=== PATIENT | female | born 1935 | race Caucasian/White ===

== ENCOUNTER 2017-07-05 11:38 | Inpatient (IN) | payer MEDICARE ==
[~2017-07-05] VITALS: Ht 152.4 cm; Wt 53.4 kg
[2017-07-05 11:45] VITALS: BP 103/57; PULSE 88; RESP 16; TEMP 97.6; O2SAT 94
[2017-07-05] MEDS ORDERED: LEVO25TA4 PO (12:07)
[2017-07-05] MEDS ORDERED: MULTTAB25 (12:07)
[2017-07-05] MEDS ORDERED: VITA1000 PO (12:07)
[2017-07-05] MEDS ORDERED: TYLETAB34 PO (12:07)
--- NOTE | 2017-07-05 12:07 | PD ---
HPI Chief Complaint: Pain: Acute or Chronic Time Seen by Provider: 11:55 Travel History International Travel<30 days: No Contact w/Intl Traveler<30days: No Traveled to known affect area: No History of Present Illness HPI 82-year-old female presents via EMS for evaluation after mechanical fall. She reports that yesterday she was walking into her computer room when she tripped and fell, falling onto her back on the carpeted floor. She had the back of her head against the ground, sustaining an occipital laceration, did not lose consciousness. She was unable to stand up and was on the ground throughout the night. She is complaining of occipital head pain associated with laceration, mild, burning, as well as lower back pain, aching, worse with movement. She also has right shoulder pain associated with a contusion. Denies chest pain, shortness of breath, blurred vision, nausea, vomiting, abdominal pain, numbness or tingling or weakness in the extremities. Last tetanus vaccination within 5 years. No other complaints. PFSH Past Medical History ?: Not Social History Alcohol Use: No Tobacco Use: No Allergies-Medications (Allergen,Severity, Reaction): Coded Allergies: Penicillins (Verified Allergy, Intermediate, 07/05/17) Sulfa (Sulfonamide Antibiotics) (Verified Allergy, Intermediate, 07/05/17) Reported Meds & Prescriptions Reported Meds & Active Scripts Active Reported Multi For Her 50+ (Multiple Vitamins W/ Minerals) 0.4 Mg-250 Mcg Tab Vitamin D-1000 (Cholecalciferol) 1,000 Unit Tab 1,000 Units PO DAILY Tylenol-Codeine #3 (Acetaminophen-Codeine) 300-30 mg Tab 1-2 Tab PO Q6H PRN Levothyroxine (Levothyroxine Sodium) 25 Mcg Tab 25 Mcg PO DAILY Review of Systems Except as stated in HPI: all other systems reviewed are Neg Physical Exam Narrative GENERAL: Well-developed well-nourished female in no acute distress SKIN: Warm and dry. 2 cm occipital scalp laceration. Contusion noted to the right shoulder. Old areas of ecchymosis noted on the left hand and arm. Skin tear noted to the anterior left lower leg. HEAD: Skin as noted above. Normocephalic. EYES: Pupils equal and round. No scleral icterus. No injection or drainage. ENT: No nasal bleeding or discharge. Mucous membranes pink and moist. NECK: Trachea midline. No JVD. CARDIOVASCULAR: Regular rate and rhythm. No murmur appreciated. RESPIRATORY: No accessory muscle use. Clear to auscultation. Breath sounds equal bilaterally. GASTROINTESTINAL: Abdomen soft, non-tender, nondistended. Hepatic and splenic margins not palpable. MUSCULOSKELETAL: No obvious deformities. There is some tenderness to palpation of the right shoulder, lower back. The patient maintains full range of motion of the upper and lower extremities. No clubbing. No cyanosis. No edema. NEUROLOGICAL: Awake and alert. No obvious cranial nerve deficits. Motor grossly within normal limits. Normal speech. PSYCHIATRIC: Appropriate mood and affect; insight and judgment normal. Data Data Last Documented VS Vital Signs Date Time Temp Pulse Resp B/P (MAP) Pulse Ox O2 Delivery O2 Flow Rate FiO2 07/05/17 13:26 79 20 97/62 (74) 93 Room Air 07/05/17 11:[address] Cerv Spine W/O Contrast (07/05/17 ) Pelvis, Ap Only (Routine) (07/05/17 ) Sacrum And Coccyx (07/05/17 ) Ct Brain W/O Iv Contrast(Rout) (07/05/17 ) Lidocai-Epi 1%-1:100,000 Inj (Xylocaine- (07/05/17 12:15) Complete Blood Count With Diff (07/05/17 12:03) Basic Metabolic Panel (Bmp) (07/05/17 12:03) Act Partial Throm Time (Ptt) (07/05/17 12:03) Prothrombin Time / Inr (Pt) (07/05/17 12:03) Creatine Kinase (Cpk) (07/05/17 12:03) Acetaminophen (Tylenol) (07/05/17 12:15) Shoulder, Complete (>2vws) (07/05/17 ) Ct Lumb Spine W/O Contrast (07/05/17 ) Spine, Lumbar - Ltd (Ap & Lat) (07/05/17 ) CKMB (07/05/17 11:54) CKMB% (07/05/17 11:54) Ct Pelvis W/O Iv Contrast (07/05/17 ) Acetamin-Codeine 300-30 Mg (Tylenol-Code (07/05/17 13:45) Sodium Chlor 0.9% 1000 Ml Inj (Ns 1000 M (07/05/17 15:03) Urinalysis - C+S If Indicated (07/05/17 15:04) Labs Laboratory Tests Test 07/05/17 11:54 White Blood Count 17.8 TH/MM3 Red Blood Count 4.03 MIL/MM3 Hemoglobin 12.9 GM/DL Hematocrit 38.3 % Mean Corpuscular Volume 95.2 FL Mean Corpuscular Hemoglobin 32.0 PG Mean Corpuscular Hemoglobin Concent 33.6 % Red Cell Distribution Width 14.2 % Platelet Count 111 TH/MM3 Mean Platelet Volume 8.5 FL Neutrophils (%) (Auto) 92.2 % Lymphocytes (%) (Auto) 3.8 % Monocytes (%) (Auto) 3.8 % Eosinophils (%) (Auto) 0.0 % Basophils (%) (Auto) 0.2 % Neutrophils # (Auto) 16.4 TH/MM3 Lymphocytes # (Auto) 0.7 TH/MM3 Monocytes # (Auto) 0.7 TH/MM3 Eosinophils # (Auto) 0.0 TH/MM3 Basophils # (Auto) 0.0 TH/MM3 CBC Comment DIFF FINAL Differential Comment Prothrombin Time 10.8 SEC Prothromb Time International Ratio 1.1 RATIO Activated Partial Thromboplast Time 24.5 SEC Blood Urea Nitrogen 16 MG/DL Creatinine 0.78 MG/DL Random Glucose 160 MG/DL Calcium Level 8.6 MG/DL Sodium Level 133 MEQ/L Potassium Level 3.8 MEQ/L Chloride Level 97 MEQ/L Carbon Dioxide Level 27.6 MEQ/L Anion Gap 8 MEQ/L Estimat Glomerular Filtration Rate 71 ML/MIN Total Creatine Kinase 345 U/L Creatine Kinase MB 6.5 NG/ML Creatine Kinase MB % 1.9 % [facility] Medical Decision Making Medical Screen Exam Complete: Yes Emergency Medical Condition: Yes Medical Record Reviewed: Yes Interpretation(s) CT lumbar spine CONCLUSION: 1. No definite acute compression fracture identified. 2. Severe degenerative changes of the lumbar spine with spinal stenosis most notably at L3/4 and L4/5. The individual levels are dictated in detail above. CT brain no acute abnormalities Differential Diagnosis Laceration, hematoma, contusion, skull fracture, intracranial hemorrhage, lumbar strain, compression fracture, sacral fracture Narrative Course CT imaging the brain, cervical spine a been ordered. X-ray imaging the right shoulder, lumbar spine, pelvis, sacrum have been ordered. X-rays of the sacrum reveals multiple pelvic fractures and radiologist recommends CT imaging of the pelvis. This has been an on. The laceration was repaired with cayden, she verbally consented. The patient requested her prescribed Tylenol with Codeine. Lab work reveals leukocytosis of uncertain etiology. Total CK 345. Random glucose 160. Procedures Procedure Narrative LACERATION LOCATION: Occipital scalp LENGTH: [3 cm NUMBER OF STITCHES/CAYDEN: 8 REPAIR: The area of the laceration was prepped with Betadine and sterilely draped. The laceration was infiltrated with 1% lidocaine with epinephrine. The wound was copiously irrigated and explored without evidence of foreign body , tendon injury or neurovascular injury. The wound was closed using cayden. This was a single layer repair. A sterile dressing was applied. The patient was advised to keep the dressing clean and dry. Patient tolerated the procedure well. Diagnosis Primary Impression: Multiple pelvic fractures Additional Impressions: Occipital scalp laceration Acetabular fracture Admitting Information Admitting Physician Requests: it Harley Zuniga Jul 05, 2017 12:07
[2017-07-05] MEDS ORDERED: LIDOCAINE 1%/EPINEPHrine 1:100,000 SOLN 20 ML VIAL INFIL ONE (12:15)
[2017-07-05] MEDS ORDERED: ACETAMINOPHEN 325 MG TAB PO ONE (12:15)
[2017-07-05 12:46] LABS: AUTOMATED NEUTROPHIL # 16.4 TH/MM3 (1.8-7.7); BASOPHIL % 0.2 % (0.0-2.0); HEMATOCRIT 38.3 % (35.0-46.0); HEMOGLOBIN 12.9 GM/DL (11.6-15.3); LYMPH % 3.8 % (9.0-44.0); LYMPHOCYTE # 0.7 TH/MM3 (1.0-4.8); MEAN CELL VOLUME 95.2 FL (80.0-100.0); MEAN CORPUSCULAR HGB CONC 33.6 % (32.0-36.0); MEAN PLATELET VOLUME 8.5 FL (7.0-11.0); MONO % 3.8 % (0.0-8.0); MONOCYTE # 0.7 TH/MM3 (0-0.9); NEUT % 92.2 % (16.0-70.0); PLATELET COUNT 111 TH/MM3 (150-450); RED BLOOD COUNT 4.03 MIL/MM3 (4.00-5.30); RED CELL DISTRIBUTION WIDTH 14.2 % (11.6-17.2); WHITE BLOOD COUNT 17.8 TH/MM3 (4.0-11.0)
[2017-07-05 12:53] LABS: INTERNATIONAL NORMALIZED RATIO 1.1 RATIO; PROTHROMBIN TIME - PATIENT 10.8 SEC (9.8-11.6)
[2017-07-05 13:04] LABS: BICARBONATE 27.6 MEQ/L (21.0-32.0); CALCIUM 8.6 MG/DL (8.5-10.1); CREATININE 0.78 MG/DL (0.50-1.00)
--- NOTE | 2017-07-05 13:06 | RADRPT ---
EXAM DATE/TIME: 07/05/2017 12:28 [facility] COMPARISON: No previous studies available for comparison. INDICATIONS : Right shoulder aruna post fall, bruising posteriorly. MEDICAL HISTORY : Arthritis. chronic back pain SURGICAL HISTORY : thyroidectomy ENCOUNTER: Initial ACUITY: 1 day PAIN SCORE: 10/10 LOCATION: Right shoulder FINDINGS: Extensive degenerative changes are present with subacromial spurring. Degenerative changes are seen about the glenoid labrum. No fracture. Granulomas right lung. CONCLUSION: Degenerative changes, negative for fracture. Costa Timmons MD FACR on July 05, 2017 at 13:03 Board Certified Radiologist. This report was verified electronically.
--- NOTE | 2017-07-05 13:14 | RADRPT ---
EXAM DATE/TIME: 07/05/2017 12:40 [facility] COMPARISON: No previous studies available for comparison. INDICATIONS : Fall yesterday, pain all over. MEDICAL HISTORY : Arthritis. chronic back pain SURGICAL HISTORY : thyroidectomy ENCOUNTER: Initial ACUITY: 1 day PAIN SCORE: 10/10 LOCATION: Bilateral pelvis FINDINGS: Extensive vascular calcifications are noted. Degenerative changes are present about the lower lumbar spine. There is an nondisplaced fracture through the acetabulum of the left hip. There is no fract ure of the pubic symphysis bilaterally involving both the right and left pubic rami. CONCLUSION: Fractures as described above. CT scan could be used to further evaluate the pelvic fracture. Costa Timmons MD FACR on July 05, 2017 at 13:10 Board Certified Radiologist. This report was verified electronically.
--- NOTE | 2017-07-05 13:20 | RADRPT ---
EXAM DATE/TIME: 07/05/2017 12:31 [facility] COMPARISON: No previous studies available for comparison. INDICATIONS : Back pain post fall. MEDICAL HISTORY : Arthritis. chronic back pain SURGICAL HISTORY : thyroidectomy ENCOUNTER: Initial ACUITY: 1 day PAIN SCORE: 10/10 LOCATION: Bilateral back FINDINGS: I have no prior studies for comparison. Extensive degenerative changes are present in the lumbar spi ne with marked loss of disc space height at L1-2, L2-3, L3-4 L4-5 and L5-S1. Vacuum changes are seen at L2-3 and L3-4. Moderate scoliosis is noted. There is minimal loss of vertebral height at L2 and L3 age indeterminate. Extensive vascular cavitations. CONCLUSION: Extensive degenerative changes lumbar spine. Minimal loss vertebral body height L2 and L3. Age-inde terminate. MRI could be used to exclude an acute compression. Costa Timmons MD FACR on July 05, 2017 at 13:16 Board Certified Radiologist. This report was verified electronically.
--- NOTE | 2017-07-05 13:20 | RADRPT ---
EXAM DATE/TIME: 07/05/2017 12:32 [facility] COMPARISON: PELVIS AP ONLY, July 05, 2017, 12:40. INDICATIONS : Pain lower back post fall. MEDICAL HISTORY : Arthritis. chronic back pain SURGICAL HISTORY : thyroidectomy ENCOUNTER: Initial ACUITY: 1 day PAIN SCORE: 10/10 LOCATION: Bilateral back lower FINDINGS: There is a fracture of the left acetabulum and right superior pubic ramus. There also may be a fractu re of the left inferior pubic ramus. CT scan is recommended for further evaluation if clinically ela cated. Prominent vascular calcification is present. CONCLUSION: 1. Multiple pelvic fractures as above. CT scan is recommended for further evaluation if clinically in dicated. Douglas Aviles MD on July 05, 2017 at 13:16 Board Certified Radiologist. This report was verified electronically.
[2017-07-05 13:26] VITALS: BP 97/62; PULSE 79; RESP 20; O2SAT 93
[2017-07-05] MEDS ORDERED: ACETAMINOPHEN/CODEINE 300 MG/30 MG TAB PO ONE (13:45)
--- NOTE | 2017-07-05 14:07 | RADRPT ---
EXAM DATE/TIME: 07/05/2017 13:38 [facility] COMPARISON: No previous studies available for comparison. INDICATIONS : Fall hitting the back of her head.Laceration. RADIATION DOSE: 56.35 CTDIvol (mGy) MEDICAL HISTORY : SURGICAL HISTORY : Tonsillectomy. Thyroidectomy. ENCOUNTER: Initial ACUITY: 1 day PAIN SCALE: 7/10 LOCATION: occipital TECHNIQUE: Multiple contiguous axial images were obtained of the head. Using automated exposure control and adj ustment of the mA and/or kV according to patient size, radiation dose was kept as low as reasonably a chievable to obtain optimal diagnostic quality images. DICOM format image data is available electro nically for review and comparison. FINDINGS: CEREBRUM: The ventricles are normal for age. No evidence of midline shift, mass lesion, hemorrhage or acute in farction. No extra-axial fluid collections are seen. POSTERIOR FOSSA: The cerebellum and brainstem are intact. The 4th ventricle is midline. The cerebellopontine angle i s unremarkable. EXTRACRANIAL: The visualized portion of the orbits is intact. SKULL: The calvaria is intact. No evidence of skull fracture. CONCLUSION: Negative for acute process. Costa Timmons MD FACR on July 05, 2017 at 14:04 Board Certified Radiologist. This report was verified electronically.
--- NOTE | 2017-07-05 14:32 | RADRPT ---
EXAM DATE/TIME: 07/05/2017 13:42 [facility] COMPARISON: CT BRAIN W/O CONTRAST, July 05, 2017, 13:38. INDICATIONS : Low back pain due to fall. RADIATION DOSE: 25.50 CTDIvol (mGy) MEDICAL HISTORY : None SURGICAL HISTORY : Tonsillectomy. Thyroidectomy. ENCOUNTER: Initial ACUITY: 1 day PAIN SCALE: 7/10 LOCATION: low back TECHNIQUE: Volumetric scanning of the lumbar spine was performed. Multiplanar reconstructions in the sagittal, coronal and oblique axial planes were performed. Using automated exposure control and adjustment of the mA and/or kV according to patient size, radiation dose was kept as low as reasonably achievable t o obtain optimal diagnostic quality images. DICOM format image data is available electronically for review and comparison. FINDINGS: Sagittal and coronal reformats demonstrate severe degenerative changes within the lumbar spine with a convex left rotatory scoliosis. There are desiccated, degenerated disc at all levels. No definite ac [place] compression fracture is seen. Axial imaging: T12/L1: There is a degenerated disc. There is mild diffuse osteophytic ridging and a small broad-based disc b ulge. There is uncovertebral osteophyte encroaching upon the lateral recess and base of the foramina on the left. The foramina on the right is adequate. There is mild facet arthritis bilaterally. L1/L2: There is a degenerated disc. There is minimal disc bulge and diffuse osteophytic ridging. This efface s the ventral thecal sac. Residual thecal space appears narrowed but adequate. There is uncovertebral osteophyte encroaching upon the lateral recess bilaterally. The foramina appear adequate. There is f acet arthritis bilaterally. L2/L3: There is a severely degenerated disc. There is diffuse osteophytic ridging. These efface the ventral thecal sac. There is uncovertebral osteophyte encroaching upon the lateral recess bilaterally. The re sidual thecal space is adequate. The foramina appear adequate. There is moderate facet arthritis bila terally. L3/L4: There is a degenerated disc with broad-based disc bulge and diffuse osteophytic ridging. There is adv anced facet arthritis bilaterally with degenerative facet and ligamentous hypertrophy. These changes combined and result in a severe spinal stenosis and bilateral foraminal narrowing at this level. L4/L5: There is a degenerated disc with broad-based disc bulge and diffuse osteophytic ridging. There is adv anced facet arthritis bilaterally. There is degenerative facet and ligamentous hypertrophy. These micha nges combined and result in a severe spinal stenosis and bilateral foramina bilaterally at this level . L5/S1: There is a degenerated disc with broad-based disc bulge. This effaces the ventral thecal sac. There i s diffuse osteophytic ridging. There is facet arthritis bilaterally. There is osteophytic spur result ing in moderate bilateral encroachment on the lateral recess and base of the foramina. CONCLUSION: 1. No definite acute compression fracture identified. 2. Severe degenerative changes of the lumbar spine with spinal stenosis most notably at L3/4 and L4/5 . The individual levels are dictated in detail above. Channing Timmons MD on July 05, 2017 at 14:25 Board Certified Radiologist. This report was verified electronically.
--- NOTE | 2017-07-05 14:38 | RADRPT ---
EXAM DATE/TIME: 07/05/2017 13:49 [facility] COMPARISON: No previous studies available for comparison. INDICATIONS : Fall. ORAL CONTRAST: No oral contrast ingested. RADIATION DOSE: 8.56 CTDIvol (mGy) MEDICAL HISTORY : None SURGICAL HISTORY : Tonsillectomy. Thyroidectomy. ENCOUNTER: Initial ACUITY: 1 day PAIN SCALE: 7/10 LOCATION: pelvis TECHNIQUE: Volumetric scanning of the pelvis was performed. Using automated exposure control and adjustment of the mA and/or kV according to patient size, radiation dose was kept as low as reasonably achievable t o obtain optimal diagnostic quality images. DICOM format image data is available electronically for review and comparison. FINDINGS: There is an nondisplaced fracture through the medial acetabular wall with fractures of superior pubic rami bilaterally. Alignment is anatomic. SI joints are normal Degenerative changes are present in lumbar spine Femoral head and neck are intact. CONCLUSION: Fracture medial wall of acetabulum as well as bilateral pubic rami fracture. Alignment is near-anatomic.. Csota Timmons MD FACR on July 05, 2017 at 14:32 Board Certified Radiologist. This report was verified electronically.
[2017-07-05] MEDS ORDERED: SODIUM CHLOR 0.9% 1000 ML INJ 1,000 ML IV SCH (15:03)
--- NOTE | 2017-07-05 15:12 | RADRPT ---
EXAM DATE/TIME: 07/05/2017 13:36 [facility] COMPARISON: No previous studies available for comparison. INDICATIONS : Neck pain due to fall. RADIATION DOSE: 40.91 CTDIvol (mGy) MEDICAL HISTORY : None SURGICAL HISTORY : Tonsillectomy. Thyroidectomy. ENCOUNTER: Initial ACUITY: 1 day PAIN SCALE: 7/10 LOCATION: neck TECHNIQUE: Volumetric scanning of the cervical spine was performed. Multiplanar reconstructions in the sagittal, coronal and oblique axial planes were performed. Using automated exposure control and adjustment o f the mA and/or kV according to patient size, radiation dose was kept as low as reasonably achievable to obtain optimal diagnostic quality images. DICOM format image data is available electronically f or review and comparison. FINDINGS: The examination demonstrates a convex left rotatory scoliosis. No acute fracture is identified. There are degenerated discs throughout the cervical spine. Note is made of degenerative changes in the atlantodens joint as well. Axial imaging: C2-3: There is central disc bulge. The thecal space and foramina are adequate. There is facet arthritis migel aterally. C3-4: There is a degenerated disc with diffuse osteophytic ridging. There is exuberant osteophyte projectin g off the vertebral endplate into the lateral recess and base of the foramina on the right. The sheyla sheyla on the left is adequate. The residual thecal space is adequate. There is moderate facet arthritis bilaterally. C4-5: There is a degenerated disc with diffuse osteophytic ridging. There is uncovertebral osteophyte proje cting into the lateral recess and base of the foramina on the right. The foramina on the left is adeq uate. There is mild facet arthritis bilaterally. C5-6: There is a degenerated disc with osteophytic ridging. This just effaces the ventral thecal sac. The r esidual thecal space and foramina appear adequate. There is moderate facet arthritis bilaterally. C6-7: There is a degenerated disc with diffuse osteophytic ridging. There is facet arthritis bilaterally. T he thecal space and foramina are adequate C7-T1: There is no significant neural foraminal stenosis or spinal stenosis. Incidental note is made of severe, densely calcified atherosclerotic plaquing in the carotid arteries bilaterally. CONCLUSION: 1. No acute fracture the cervical spine identified. 2. Advanced degenerative changes as above. 3. Advanced atherosclerotic plaquing in the carotid bifurcations. Channing Timmons MD on July 05, 2017 at 15:05 Board Certified Radiologist. This report was verified electronically.
--- NOTE | 2017-07-05 15:32 | HHI.HP ---
[facility] Service Family Medicine Primary Care Physician Neymar Lugo MD Admission Diagnosis pubic rami fracture, acetabular fracture Diagnoses: International Travel<30 Days: No Contact w/Intl Traveler<30days: No Known Affected Area: No History of Present Illness Mrs. East is a 82-year-old white female with past medical history of hypothyroidism presenting to the ED after fall. She states that last night she decided to go to bed early. She went into her computer room and left her phone on the kitchen table in the next room. She states that she tripped over her feet and fell on her back then hit her head. She states that she saw some stars , but did not lose consciousness. No seizure activity. No loss of bowels or bladder. She states that she laid there all night because she could not get to the phone. Her friend found her this morning around 10 AM. This is her first fall. She usually uses a wheeled walker at home. She uses a wheelchair outside the home. She lives alone. She states that she has pain in her lower spine at her tailbone whenever she tries to move her legs. She states that her hips and legs hurt as well. The pain medicine in the ED helped. No chest pain, no shortness of breath, no abdominal pain. (Malou Hall MD R1) Review of Systems Constitutional: DENIES: Fever, Chills, Dizziness Eyes: DENIES: Blurred vision Ears, nose, mouth, throat: DENIES: Tinnitus, Running Nose Respiratory: DENIES: Cough, Shortness of breath Cardiovascular: COMPLAINS OF: Lower Extremity Edema, DENIES: Chest pain Gastrointestinal: COMPLAINS OF: Constipation, DENIES: Abdominal pain, Black stools, Bloody stools Genitourinary: DENIES: Dysuria Hematologic/lymphatic: COMPLAINS OF: Bruising Neurologic: COMPLAINS OF: Headache, Poor Balance, DENIES: Localized weakness ( Malou Hall MD R1) Past Family Social History Past Medical History Hearing loss Vestibular dysfunction Lumbar stenosis in back Hypothyroidism Past Surgical History Thyroidectomy at 18yo Mastoidectomy bilateral at 3yo Reported Medications Lorazepam 0.25mg PRN for anxiety Reported Meds & Active Scripts Active Reported Multi For Her 50+ (Multiple Vitamins W/ Minerals) 0.4 Mg-250 Mcg Tab Vitamin D-1000 (Cholecalciferol) 1,000 Unit Tab 1,000 Units PO DAILY Tylenol-Codeine #3 (Acetaminophen-Codeine) 300-30 mg Tab 1-2 Tab PO Q6H PRN Levothyroxine (Levothyroxine Sodium) 25 Mcg Tab 25 Mcg PO DAILY (Malou Hall MD R1) Allergies: Coded Allergies: Penicillins (Verified Allergy, Intermediate, 07/05/17) Sulfa (Sulfonamide Antibiotics) (Verified Allergy, Intermediate, 07/05/17) Family History Mother and father , no FHx of bone disease Social History Lives alone in a condo 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 x64yrs Illicit drugs-none (Malou Hall MD R1) Physical Exam Vital Signs Vital Signs Date Time Temp Pulse Resp B/P (MAP) Pulse Ox O2 Delivery O2 Flow Rate FiO2 07/05/17 13:26 79 20 97/62 (74) 93 Room Air 07/05/17 11:53 85 18 07/05/17 11:45 97.6 88 16 103/57 (72) 94 Physical Exam GENERAL: This is a well-nourished, well-developed elderly white female patient laying in bed, in no apparent distress. SKIN: No rashes or lesions. Cool and dry. Ecchymoses on bilateral forearms and right shoulder. HEAD: Normocephalic. Laceration with cayden on occipital scalp. EYES: Pupils equal round and reactive. Extraocular motions intact. No scleral icterus. No injection or drainage. ENT: Nose without bleeding, purulent drainage or septal hematoma. Throat without erythema, tonsillar hypertrophy or exudate. Uvula midline. Airway patent. NECK: Trachea midline. No JVD or lymphadenopathy. Supple, nontender, no meningeal signs. CARDIOVASCULAR: Regular rate and rhythm without murmurs, gallops, or rubs. RESPIRATORY: Clear to auscultation. Breath sounds equal bilaterally. No wheezes , rales, or rhonchi. GASTROINTESTINAL: Abdomen soft, non-tender, nondistended. No hepato-splenomegaly , or palpable masses. No guarding. MUSCULOSKELETAL: Extremities without clubbing, cyanosis, or edema. No joint tenderness, effusion, or edema noted. 10cmx 8cm soft mass on right shoulder. Tenderness to palpation on bilateral hips. NEUROLOGICAL: Awake and alert. Motor and sensory grossly within normal limits. Normal speech. Laboratory Laboratory Tests Test 07/05/17 11:54 White Blood Count 17.8 Red Blood Count 4.03 Hemoglobin 12.9 Hematocrit 38.3 Mean Corpuscular Volume 95.2 Mean Corpuscular Hemoglobin 32.0 Mean Corpuscular Hemoglobin Concent 33.6 Red Cell Distribution Width 14.2 Platelet Count 111 Mean Platelet Volume 8.5 Neutrophils (%) (Auto) 92.2 Lymphocytes (%) (Auto) 3.8 Monocytes (%) (Auto) 3.8 Eosinophils (%) (Auto) 0.0 Basophils (%) (Auto) 0.2 Neutrophils # (Auto) 16.4 Lymphocytes # (Auto) 0.7 Monocytes # (Auto) 0.7 Eosinophils # (Auto) 0.0 Basophils # (Auto) 0.0 CBC Comment DIFF FINAL Differential Comment Prothrombin Time 10.8 Prothromb Time International Ratio 1.1 Activated Partial Thromboplast Time 24.5 Blood Urea Nitrogen 16 Creatinine 0.78 Random Glucose 160 Calcium Level 8.6 Sodium Level 133 Potassium Level 3.8 Chloride Level 97 Carbon Dioxide Level 27.6 Anion Gap 8 Estimat Glomerular Filtration Rate 71 Total Creatine Kinase 345 Creatine Kinase MB 6.5 Creatine Kinase MB % 1.9 (Malou Hall MD R1) Result Diagram: 07/05/17 1154 07/05/17 1154 Imaging Last Impressions Shoulder X-Ray 07/05/17 0000 Signed Impressions: Service Date/Time: Wednesday, July 05, 2017 12:28 - CONCLUSION: Degenerative changes, negative for fracture. Costa Timmons MD FACR Sacrum and Coccyx X-Ray 07/05/17 0000 Signed Impressions: Service Date/Time: Wednesday, July 05, 2017 12:32 - CONCLUSION: 1. Multiple pelvic fractures as above. CT scan is recommended for further evaluation if clinically indicated. Douglas Aviles MD Pelvis X-Ray 07/05/17 0000 Signed Impressions: Service Date/Time: Wednesday, July 05, 2017 12:40 - CONCLUSION: Fractures as described above. CT scan could be used to further evaluate the pelvic fracture. Costa Timmons MD FACR Pelvis CT 07/05/17 0000 Signed Impressions: Service Date/Time: Wednesday, July 05, 2017 13:49 - CONCLUSION: Fracture medial wall of acetabulum as well as bilateral pubic rami fracture. Alignment is near-anatomic.. Costa Timmons MD FACR Lumbar Spine X-Ray 07/05/17 0000 Signed Impressions: Service Date/Time: Wednesday, July 05, 2017 12:31 - CONCLUSION: Extensive degenerative changes lumbar spine. Minimal loss vertebral body height L2 and L3. Age-indeterminate. MRI could be used to exclude an acute compression. Costa Timmons MD FACR Lumbar Spine CT 07/05/17 0000 Signed Impressions: Service Date/Time: Wednesday, July 05, 2017 13:42 - CONCLUSION: 1. No definite acute compression fracture identified. 2. Severe degenerative changes of the lumbar spine with spinal stenosis most notably at L3/4 and L4/5. The individual levels are dictated in detail above. Channing Timmons MD Head CT 07/05/17 0000 Signed Impressions: Service Date/Time: Wednesday, July 05, 2017 13:38 - CONCLUSION: Negative for acute process. Costa Timmons MD FACR Cervical Spine CT 07/05/17 0000 Signed Impressions: Service Date/Time: Wednesday, July 05, 2017 13:36 - CONCLUSION: 1. No acute fracture the cervical spine identified. 2. Advanced degenerative changes as above. 3. Advanced atherosclerotic plaquing in the carotid bifurcations. Channing Timmons MD (Malou Hall MD R1) Caprini VTE Risk Assessment Caprini VTE Risk Assessment: Mod/High Risk (score >= 2) Caprini Risk Assessment Model Point Value = 1 Point Value = 2 Point Value = 3 Point Value = 5 Age 41-60 Minor surgery BMI > 25 kg/m2 Swollen legs Varicose veins or History of unexplained or recurrent spontaneous Oral contraceptives or hormone replacement Sepsis (< 1 month) Serious lung disease, including pneumonia (< 1 month) Abnormal pulmonary function Acute myocardial infarction Congestive heart failure (< 1 month) History of inflammatory bowel disease Medical patient at bed rest Age 61-74 Arthroscopic surgery Major open surgery (> 45 min) Laparoscopic surgery (> 45 min) Malignancy Confined to bed (> 72 hours) Immobilizing plaster cast Central venous access Age >= 75 History of VTE Family history of VTE Factor V Leiden Prothrombin [id number] Lupus anticoagulant Anticardiolipin antibodies Elevated serum homocysteine Heparin-induced thrombocytopenia Other congenital or acquired thrombophilia Stroke (< 1 month) Elective arthroplasty Hip, pelvis, or leg fracture Acute spinal cord injury (< 1 month) Prophylaxis Regimen Total Risk Factor Score Risk Level Prophylaxis Regimen 0-1 Low Early ambulation 2 Moderate Order ONE of the following: *Sequential Compression Device (SCD) *Heparin 5000 units SQ BID 3-4 Higher Order ONE of the following medications: *Heparin 5000 units SQ TID *Enoxaparin/Lovenox 40 mg SQ daily (WT < 150 kg, CrCl > 30 mL/min) *Enoxaparin/Lovenox 30 mg SQ daily (WT < 150 kg, CrCl > 10-29 mL/min) *Enoxaparin/Lovenox 30 mg SQ BID (WT < 150 kg, CrCl > 30 mL/min) AND/OR *Sequential Compression Device (SCD) 5 or more Highest Order ONE of the following medications: *Heparin 5000 units SQ TID (Preferred with Epidurals) *Enoxaparin/Lovenox 40 mg SQ daily (WT < 150 kg, CrCl > 30 mL/min) *Enoxaparin/Lovenox 30 mg SQ daily (WT < 150 kg, CrCl > 10-29 mL/min) *Enoxaparin/Lovenox 30 mg SQ BID (WT < 150 kg, CrCl > 30 mL/min) AND *Sequential Compression Device (SCD) (Malou Hall MD R1) Assessment and Plan Assessment and Plan Mrs. East is a 82yo female with a PMH of hypothyroidism presenting after a hip fracture. She is being admitted to our inpatient service. Code Status DNR Discussed Condition With Dr. Mehta (Malou Hall MD R1) Attending Attestation Patient seen and examined. Case reviewed and discussed with the resident team. Agree with plan of care as discussed with me and documented in the resident note. pt seen in ED and agree with admission for pain control and evaluation per ortho (Shayla Mehat MD) Problem List: (1) Acetabular fracture ICD Codes: S32.409A - Unspecified fracture of unspecified acetabulum, initial encounter for closed fracture Status: Acute Plan: Multiple imaging studies on 07/05 showing nondisplaced fracture to the acetabulum of the left hip as well as bilateral pubic rami fractures. Alignment is near anatomic. * Consult orthopedics, patient is known to Dr. Ramirez * Patient may not need surgical intervention * Pain management with [place] PRN * Consult PT and OT * Consult case management for possible placement (2) Multiple pelvic fractures ICD Codes: S32.810A - Multiple fractures of pelvis with stable disruption of pelvic ring, initial encounter for closed fracture Status: Acute Plan: See plan above (3) Elevated CPK ICD Codes: R74.8 - Abnormal levels of other serum enzymes Status: Acute Plan: CPK at admission was 345. This maybe due to patient lying on the floor all night. * IVF NS @ 100mls/hr * Continue to monitor (4) Occipital scalp laceration ICD Codes: S01.01XA - Laceration without foreign body of scalp, initial encounter Status: Acute Plan: Head CT upon admission is negative for acute process. * Laceration repaired in ED with cayden (5) Hypothyroidism ICD Codes: E03.9 - Hypothyroidism, unspecified Status: Chronic Plan: * Continue home levothyroxine (6) Tobacco abuse ICD Codes: Z72.0 - Tobacco use Status: Chronic Plan: Patient smokes half pack per day and has no interest in quitting at this time. * Nicotine patch during her stay (7) FEN Status: Acute Plan: Fluids: NS @ 100ml/hr Electrolytes: Hyponatremia noted on admission. monitor and replete as needed Nutrition: Regular diet DVT Prophylaxis: Early ambulation. Bilateral SCDs GI Prophylaxis: None indicated at this time Pain Management: [place] 5-325 for Pain 3-5, 7.5-325 for 6-10 (Malou Hall MD R1) Physician Certification 2 Midnight Certification Type: Admission for Inpatient Services Order for Inpatient Services The services are ordered in accordance with Medicare regulations or non- Medicare payer requirements, as applicable. In the case of services not specified as inpatient-only, they are appropriately provided as inpatient services in accordance with the 2-midnight benchmark. Estimated LOS (days): 2 days is the estimated time the patient will need to remain in the hospital, assuming treatment plan goals are met and no additional complications. Post-Hospital Plan: Not yet determined (Malou Hall MD R1) Problem Qualifiers (1) Acetabular fracture: Qualified Codes: S32.475A - Nondisplaced fracture of medial wall of left acetabulum, initial encounter for closed fracture (2) Multiple pelvic fractures: Qualified Codes: S32.82XA - Multiple fractures of pelvis without disruption of pelvic ring, initial encounter for closed fracture (3) Occipital scalp laceration: Qualified Codes: S01.01XA - Laceration without foreign body of scalp, initial encounter (4) Hypothyroidism: Qualified Codes: E03.9 - Hypothyroidism, unspecified Malou Hall MD R1 Jul 05, 2017 15:32 Shayla Mehta MD Jul 06, 2017 13:40
[2017-07-05 15:38] VITALS: BP 121/87; PULSE 81; RESP 14; O2SAT 97
[2017-07-05] MEDS ORDERED: BISACODYL 10 MG SUPP RECTAL PRN (15:45)
[2017-07-05] MEDS ORDERED: SENNOSIDES 8.6 MG TAB PO PRN (15:45)
[2017-07-05] MEDS ORDERED: LACTULOSE SYRUP 20 GM/30 ML CUP PO PRN (15:45)
[2017-07-05] MEDS ORDERED: SODIUM CHLORIDE 0.9% FLUSH 10 ML FLUSH IV FLUSH PRN (15:45)
[2017-07-05] MEDS ORDERED: MAGNESIUM HYDROXIDE SUSP 30 ML CUP PO PRN (15:45)
[2017-07-05] MEDS ORDERED: NALOXONE HCL 0.4 MG/ML AMP IV PUSH PRN ×2 (15:45→16:45)
[2017-07-05] MEDS ORDERED: ACETAMINOPHEN/HYDROcodone 325 MG/5 MG TAB PO PRN (16:45)
[2017-07-05] MEDS ORDERED: ACETAMINOPHEN/HYDROcodone 325 MG/7.5 MG TAB PO PRN (16:45)
[2017-07-05 19:40] VITALS: O2SAT 97
[2017-07-05 20:40] VITALS: BP 109/60; PULSE 84; RESP 16; TEMP 97; O2SAT 98
[2017-07-05] MEDS: DOCUSATE SODIUM 50 MG/SENNA 8.6 MG TAB PO SCH (21:43)
[2017-07-05] MEDS: SODIUM CHLORIDE 0.9% FLUSH 10 ML FLUSH IV FLUSH SCH (21:44)
[2017-07-05] MEDS: SODIUM CHLOR 0.9% 1000 ML INJ 1,000 ML IV SCH (21:56)
[2017-07-06] VITALS (11 sets, daily range): BP systolic 68–130; BP diastolic 44–70; PULSE 64–133; RESP 15–16; TEMP 96.8–100.6; O2SAT 94–98
[2017-07-06] MEDS: ACETAMINOPHEN 325 MG TAB PO PRN ×3 (00:45→14:40)
[2017-07-06] MEDS: LEVOTHYROXINE SODIUM 25 MCG TAB PO SCH (05:25)
[2017-07-06] MEDS: SODIUM CHLOR 0.9% 1000 ML INJ 1,000 ML IV SCH ×2 (05:25→15:46)
--- NOTE | 2017-07-06 07:13 | PD.ORT.PN ---
Subjective Subjective Remarks Fall at home and found on floor. Was unable to get to phone on table Objective Vitals Vital Signs Date Time Temp Pulse Resp B/P (MAP) Pulse Ox O2 Delivery O2 Flow Rate FiO2 07/06/17 04:25 97.7 89 15 130/70 (90) 96 07/06/17 01:10 100.6 87 15 121/69 (86) 98 07/05/17 20:40 97.0 84 16 109/60 (76) 98 07/05/17 19:40 97 Nasal Cannula 2.00 07/05/17 15:38 81 14 121/87 (98) 97 Nasal Cannula 07/05/17 13:26 79 20 97/62 (74) 93 Room Air 07/05/17 11:53 85 18 07/05/17 11:45 97.6 88 16 103/57 (72) 94 I/O 07/05/17 07/05/17 07/05/17 07/06/17 07/06/17 07/06/17 07:00 15:00 23:00 07:00 15:00 23:00 Intake Total 1120 ml Balance 1120 ml Intake Oral 120 ml IV Total 1000 ml # Voids 1 # Bowel Movements 0 Result Diagram: 07/05/17 1154 07/05/17 1154 Other Results Laboratory Tests Test 07/05/17 11:54 Prothromb Time International Ratio 1.1 RATIO Prothrombin Time 10.8 SEC (9.8-11.6) Imaging Last 72 hours Impressions Shoulder X-Ray 07/05/17 0000 Signed Impressions: Service Date/Time: Wednesday, July 05, 2017 12:28 - CONCLUSION: Degenerative changes, negative for fracture. Costa Timmons MD FACR Sacrum and Coccyx X-Ray 07/05/17 0000 Signed Impressions: Service Date/Time: Wednesday, July 05, 2017 12:32 - CONCLUSION: 1. Multiple pelvic fractures as above. CT scan is recommended for further evaluation if clinically indicated. Douglas Aviles MD Pelvis X-Ray 07/05/17 0000 Signed Impressions: Service Date/Time: Wednesday, July 05, 2017 12:40 - CONCLUSION: Fractures as described above. CT scan could be used to further evaluate the pelvic fracture. Costa Timmons MD FACR Pelvis CT 07/05/17 0000 Signed Impressions: Service Date/Time: Wednesday, July 05, 2017 13:49 - CONCLUSION: Fracture medial wall of acetabulum as well as bilateral pubic rami fracture. Alignment is near-anatomic.. Cosat Timmons MD FACR Lumbar Spine X-Ray 07/05/17 0000 Signed Impressions: Service Date/Time: Wednesday, July 05, 2017 12:31 - CONCLUSION: Extensive degenerative changes lumbar spine. Minimal loss vertebral body height L2 and L3. Age-indeterminate. MRI could be used to exclude an acute compression. Costa Timmons MD FACR Lumbar Spine CT 07/05/17 0000 Signed Impressions: Service Date/Time: Wednesday, July 05, 2017 13:42 - CONCLUSION: 1. No definite acute compression fracture identified. 2. Severe degenerative changes of the lumbar spine with spinal stenosis most notably at L3/4 and L4/5. The individual levels are dictated in detail above. Channing Timmons MD Head CT 07/05/17 0000 Signed Impressions: Service Date/Time: Wednesday, July 05, 2017 13:38 - CONCLUSION: Negative for acute process. Costa Timmons MD FACR Cervical Spine CT 07/05/17 0000 Signed Impressions: Service Date/Time: Wednesday, July 05, 2017 13:36 - CONCLUSION: 1. No acute fracture the cervical spine identified. 2. Advanced degenerative changes as above. 3. Advanced atherosclerotic plaquing in the carotid bifurcations. Channing Timmons MD Objective Remarks Bilateral upper extremities: Full range of motion neurovascularly intact Tenderness to palpation over pubic rami and mild tenderness with range of motion of hips. No pain with knee or ankle range of motion bilaterally. Distally intact sensation bilateral lower extremities. Assessment & Plan Assessment and Plan Right pubic rami fracture and left inferior superior pubic rami fractures Physical therapy weightbearing as tolerated bilateral lower extremities. Due to pain and pain with ambulation rehabilitation options are needed Follow-up x-rays in approximately 2 weeks for evaluation Bruce Meyers Jr. Jul 06, 2017 07:13
[2017-07-06 07:27] LABS: AUTOMATED NEUTROPHIL # 11.1 TH/MM3 (1.8-7.7); BASOPHIL % 0.1 % (0.0-2.0); EOSINOPHIL % 0.1 % (0.0-4.0); HEMATOCRIT 31.6 % (35.0-46.0); HEMOGLOBIN 10.8 GM/DL (11.6-15.3); LYMPH % 8.1 % (9.0-44.0); MEAN CELL VOLUME 94.3 FL (80.0-100.0); MEAN CORPUSCULAR HEMOGLOBIN 32.2 PG (27.0-34.0); MEAN CORPUSCULAR HGB CONC 34.2 % (32.0-36.0); MEAN PLATELET VOLUME 8.5 FL (7.0-11.0); MONO % 6.1 % (0.0-8.0); MONOCYTE # 0.8 TH/MM3 (0-0.9); NEUT % 85.6 % (16.0-70.0); PLATELET COUNT 89 TH/MM3 (150-450); RED BLOOD COUNT 3.35 MIL/MM3 (4.00-5.30); RED CELL DISTRIBUTION WIDTH 14.3 % (11.6-17.2); WHITE BLOOD COUNT 12.9 TH/MM3 (4.0-11.0)
[2017-07-06 07:57] LABS: ALT (GPT) 19 U/L (10-53); AST (GOT) 31 U/L (15-37); BICARBONATE 27.9 MEQ/L (21.0-32.0); BLOOD UREA NITROGEN 23 MG/DL (7-18); CALCIUM 7.8 MG/DL (8.5-10.1); CHLORIDE 99 MEQ/L (98-107); GLOMERULAR FILTRATION RATE 95 ML/MIN (>89); GLUCOSE,RANDOM 112 MG/DL (74-106); SODIUM (NA) 134 MEQ/L (136-145)
[2017-07-06 07:59] LABS: ALKALINE PHOSPHATASE 38 U/L (45-117); TOTAL BILIRUBIN ADULT 0.8 MG/DL (0.2-1.0); TOTAL PROTEIN 5.7 GM/DL (6.4-8.2)
[2017-07-06] MEDS: ENOXAPARIN SODIUM 40 MG/0.4 ML SYRINGE SQ SCH (08:55)
[2017-07-06] MEDS: CHOLECALCIFEROL (VIT D3) 1000 UNIT TAB PO SCH (08:55)
[2017-07-06] MEDS: DOCUSATE SODIUM 50 MG/SENNA 8.6 MG TAB PO SCH ×2 (08:55→20:42)
[2017-07-06] MEDS: SODIUM CHLORIDE 0.9% FLUSH 10 ML FLUSH IV FLUSH SCH ×3 (08:56→20:42)
--- NOTE | 2017-07-06 09:14 | HHI.HP ---
[facility] Service Family Medicine Primary Care Physician Neymar Lugo MD Admission Diagnosis pubic rami fracture, acetabular fracture Diagnoses: (1) Acetabular fracture Diagnosis: Principal (2) Multiple pelvic fractures Diagnosis: Principal (3) Elevated CPK Diagnosis: Principal (4) Occipital scalp laceration Diagnosis: Principal (5) Hypothyroidism Diagnosis: Principal (6) Tobacco abuse (7) FEN International Travel<30 Days: No Contact w/Intl Traveler<30days: No Known Affected Area: No History of Present Illness Mrs. East is a 82-year-old white female with past medical history of hypothyroidism who presented to the ED after fall. She states that she decided to go to bed early. She went into her computer room and left her phone on the kitchen table in the next room. She states that she tripped over her feet and fell on her back then hit her head. She states that she saw some stars, but did not lose consciousness. No seizure activity. No loss of bowels or bladder. She states that she lay there all night because she could not get to the phone. Her friend found her in the morning around 10 AM. This is her first fall. She usually uses a wheeled walker at home. She uses a wheelchair outside the home. She lives alone. She states that she has pain in her lower spine at her tailbone whenever she tries to move her legs. She states that her hips and legs hurt as well. The pain medicine in the ED helped. No chest pain, no shortness of breath, no abdominal pain. She was admitted for pain control and had some visual hallucinations on narcotic medicine. She is not able to move spontaneously in bed nor sit up at this point. Ortho saw her and she is not a surgical candidate. Review of Systems Other Constitutional: DENIES: Fever, Chills, Dizziness Eyes: DENIES: Blurred vision Ears, nose, mouth, throat: DENIES: Tinnitus, Running Nose Respiratory: DENIES: Cough, Shortness of breath Cardiovascular: COMPLAINS OF: Lower Extremity Edema, DENIES: Chest pain Gastrointestinal: COMPLAINS OF: Constipation, DENIES: Abdominal pain, Black stools, Bloody stools Genitourinary: DENIES: Dysuria Hematologic/lymphatic: COMPLAINS OF: Bruising Neurologic: COMPLAINS OF: Headache, Poor Balance, DENIES: Localized weakness Past Family Social History Past Medical History Hearing loss Vestibular dysfunction Lumbar stenosis in back Hypothyroidism Past Surgical History Thyroidectomy at 18yo Mastoidectomy bilateral at 3yo Allergies: Coded Allergies: Penicillins (Verified Allergy, Intermediate, 07/05/17) Sulfa (Sulfonamide Antibiotics) (Verified Allergy, Intermediate, 07/05/17) Family History Mother and father , no FHx of bone disease Social History Lives alone in a condo 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 x64yrs Illicit drugs-none Physical Exam Vital Signs Vital Signs Date Time Temp Pulse Resp B/P (MAP) Pulse Ox O2 Delivery O2 Flow Rate FiO2 07/06/17 04:25 97.7 89 15 130/70 (90) 96 07/06/17 01:10 100.6 87 15 121/69 (86) 98 07/05/17 20:40 97.0 84 16 109/60 (76) 98 07/05/17 19:40 97 Nasal Cannula 2.00 07/05/17 15:38 81 14 121/87 (98) 97 Nasal Cannula 07/05/17 13:26 79 20 97/62 (74) 93 Room Air 07/05/17 11:53 85 18 07/05/17 11:45 97.6 88 16 103/57 (72) 94 Physical Exam GENERAL: This is a well-nourished, well-developed elderly white female patient laying in bed, in no apparent distress when she does not move but with severe pain when she moves. she has some blood on her pillowcase from her occipital wound SKIN: No rashes or lesions. Cool and dry. Ecchymoses on bilateral forearms and right shoulder. HEAD: Normocephalic. Laceration with cayden on occipital scalp. EYES: Pupils equal round and reactive. Extraocular motions intact. No scleral icterus. No injection or drainage. ENT: Nose without bleeding, purulent drainage or septal hematoma. Throat without erythema, tonsillar hypertrophy or exudate. Uvula midline. Airway patent. NECK: Trachea midline. No JVD or lymphadenopathy. Supple, nontender, no meningeal signs. CARDIOVASCULAR: Regular rate and rhythm without murmurs, gallops, or rubs. RESPIRATORY: Clear to auscultation. Breath sounds equal bilaterally. No wheezes , rales, or rhonchi. GASTROINTESTINAL: Abdomen soft, non-tender, nondistended. No hepato-splenomegaly , or palpable masses. No guarding. MUSCULOSKELETAL: Extremities without clubbing, cyanosis, or edema. No joint tenderness, effusion, or edema noted. 10cmx 8cm soft mass on right shoulder. Tenderness to palpation on bilateral hips. NEUROLOGICAL: Awake and alert. Motor and sensory grossly within normal limits. Normal speech. Laboratory Laboratory Tests Test 07/05/17 11:54 07/06/17 06:31 White Blood Count 17.8 12.9 Red Blood Count 4.03 3.35 Hemoglobin 12.9 10.8 Hematocrit 38.3 31.6 Mean Corpuscular Volume 95.2 94.3 Mean Corpuscular Hemoglobin 32.0 32.2 Mean Corpuscular Hemoglobin Concent 33.6 34.2 Red Cell Distribution Width 14.2 14.3 Platelet Count 111 89 Mean Platelet Volume 8.5 8.5 Neutrophils (%) (Auto) 92.2 85.6 Lymphocytes (%) (Auto) 3.8 8.1 Monocytes (%) (Auto) 3.8 6.1 Eosinophils (%) (Auto) 0.0 0.1 Basophils (%) (Auto) 0.2 0.1 Neutrophils # (Auto) 16.4 11.1 Lymphocytes # (Auto) 0.7 1.0 Monocytes # (Auto) 0.7 0.8 Eosinophils # (Auto) 0.0 0.0 Basophils # (Auto) 0.0 0.0 CBC Comment DIFF FINAL AUTO DIFF Differential Comment AUTO DIFF CONFIRMED Prothrombin Time 10.8 Prothromb Time International Ratio 1.1 Activated Partial Thromboplast Time 24.5 Blood Urea Nitrogen 16 23 Creatinine 0.78 0.60 Random Glucose 160 112 Calcium Level 8.6 7.8 Sodium Level 133 134 Potassium Level 3.8 3.8 Chloride Level 97 99 Carbon Dioxide Level 27.6 27.9 Anion Gap 8 7 Estimat Glomerular Filtration Rate 71 95 Total Creatine Kinase 345 216 Creatine Kinase MB 6.5 2.3 Creatine Kinase MB % 1.9 1.1 Platelet Estimate LOW Platelet Morphology Comment NORMAL Total Protein 5.7 Albumin 3.0 Alkaline Phosphatase 38 Aspartate Amino Transf (AST/SGOT) 31 Alanine Aminotransferase (ALT/SGPT) 19 Total Bilirubin 0.8 Result Diagram: 07/06/17 0631 07/06/17 0631 Imaging Last Impressions Shoulder X-Ray 07/05/17 0000 Signed Impressions: Service Date/Time: Wednesday, July 05, 2017 12:28 - CONCLUSION: Degenerative changes, negative for fracture. Costa Timmons MD FACR Sacrum and Coccyx X-Ray 07/05/17 Signed Impressions: Service Date/Time: Wednesday, July 05, 2017 12:32 - CONCLUSION: 1. Multiple pelvic fractures as above. CT scan is recommended for further evaluation if clinically indicated. Douglas Aviles MD Pelvis X-Ray 07/05/17 Signed Impressions: Service Date/Time: Wednesday, July 05, 2017 12:40 - CONCLUSION: Fractures as described above. CT scan could be used to further evaluate the pelvic fracture. Costa Timmons MD FACR Pelvis CT 07/05/17 0000 Signed Impressions: Service Date/Time: Wednesday, July 05, 2017 13:49 - CONCLUSION: Fracture medial wall of acetabulum as well as bilateral pubic rami fracture. Alignment is near-anatomic.. Costa Timmons MD FACR Lumbar Spine X-Ray 07/05/17 Signed Impressions: Service Date/Time: Wednesday, July 05, 2017 12:31 - CONCLUSION: Extensive degenerative changes lumbar spine. Minimal loss vertebral body height L2 and L3. Age-indeterminate. MRI could be used to exclude an acute compression. Costa Timmons MD FACR Lumbar Spine CT 07/05/17 Signed Impressions: Service Date/Time: Wednesday, July 05, 2017 13:42 - CONCLUSION: 1. No definite acute compression fracture identified. 2. Severe degenerative changes of the lumbar spine with spinal stenosis most notably at L3/4 and L4/5. The individual levels are dictated in detail above. Channing Timmons MD Head CT 07/05/17 Signed Impressions: Service Date/Time: Wednesday, July 05, 2017 13:38 - CONCLUSION: Negative for acute process. Costa Timmons MD FACR Cervical Spine CT 07/05/17 0000 Signed Impressions: Service Date/Time: Wednesday, July 05, 2017 13:36 - CONCLUSION: 1. No acute fracture the cervical spine identified. 2. Advanced degenerative changes as above. 3. Advanced atherosclerotic plaquing in the carotid bifurcations. Channing Timmons MD Caprini VTE Risk Assessment Caprini VTE Risk Assessment: Mod/High Risk (score >= 2) Caprini Risk Assessment Model Point Value = 1 Point Value = 2 Point Value = 3 Point Value = 5 Age 41-60 Minor surgery BMI > 25 kg/m2 Swollen legs Varicose veins or History of unexplained or recurrent spontaneous Oral contraceptives or hormone replacement Sepsis (< 1 month) Serious lung disease, including pneumonia (< 1 month) Abnormal pulmonary function Acute myocardial infarction Congestive heart failure (< 1 month) History of inflammatory bowel disease Medical patient at bed rest Age 61-74 Arthroscopic surgery Major open surgery (> 45 min) Laparoscopic surgery (> 45 min) Malignancy Confined to bed (> 72 hours) Immobilizing plaster cast Central venous access Age >= 75 History of VTE Family history of VTE Factor V Leiden Prothrombin [id number] Lupus anticoagulant Anticardiolipin antibodies Elevated serum homocysteine Heparin-induced thrombocytopenia Other congenital or acquired thrombophilia Stroke (< 1 month) Elective arthroplasty Hip, pelvis, or leg fracture Acute spinal cord injury (< 1 month) Prophylaxis Regimen Total Risk Factor Score Risk Level Prophylaxis Regimen 0-1 Low Early ambulation 2 Moderate Order ONE of the following: *Sequential Compression Device (SCD) *Heparin 5000 units SQ BID 3-4 Higher Order ONE of the following medications: *Heparin 5000 units SQ TID *Enoxaparin/Lovenox 40 mg SQ daily (WT < 150 kg, CrCl > 30 mL/min) *Enoxaparin/Lovenox 30 mg SQ daily (WT < 150 kg, CrCl > 10-29 mL/min) *Enoxaparin/Lovenox 30 mg SQ BID (WT < 150 kg, CrCl > 30 mL/min) AND/OR *Sequential Compression Device (SCD) 5 or more Highest Order ONE of the following medications: *Heparin 5000 units SQ TID (Preferred with Epidurals) *Enoxaparin/Lovenox 40 mg SQ daily (WT < 150 kg, CrCl > 30 mL/min) *Enoxaparin/Lovenox 30 mg SQ daily (WT < 150 kg, CrCl > 10-29 mL/min) *Enoxaparin/Lovenox 30 mg SQ BID (WT < 150 kg, CrCl > 30 mL/min) AND *Sequential Compression Device (SCD) Assessment and Plan Assessment and Plan Mrs. East is a 82yo female with a PMH of hypothyroidism presenting after a hip fracture. She is being admitted to our inpatient service. Problem List: (1) Acetabular fracture ICD Codes: S32.409A - Unspecified fracture of unspecified acetabulum, initial encounter for closed fracture Status: Acute Plan: Multiple imaging studies on 07/05 showing nondisplaced fracture to the acetabulum of the left hip as well as bilateral pubic rami fractures. Alignment is near anatomic. * Consult orthopedics, patient is known to Dr. Ramirez * Patient may not need surgical intervention * Pain management with [place] PRN * Consult PT and OT * Consult case management for possible placement (2) Multiple pelvic fractures ICD Codes: S32.810A - Multiple fractures of pelvis with stable disruption of pelvic ring, initial encounter for closed fracture Status: Acute Plan: See plan above (3) Elevated CPK ICD Codes: R74.8 - Abnormal levels of other serum enzymes Status: Acute Plan: CPK at admission was 345. This maybe due to patient lying on the floor all night. * IVF NS @ 100mls/hr * Continue to monitor (4) Occipital scalp laceration ICD Codes: S01.01XA - Laceration without foreign body of scalp, initial encounter Status: Acute Plan: Head CT upon admission is negative for acute process. need to watch for infection as she was on the floor all night * Laceration repaired in ED with cayden (5) Hypothyroidism ICD Codes: E03.9 - Hypothyroidism, unspecified Status: Chronic Plan: * Continue home levothyroxine (6) Tobacco abuse ICD Codes: Z72.0 - Tobacco use Status: Chronic Plan: Patient smokes half pack per day and has no interest in quitting at this time. * Nicotine patch during her stay (7) FEN Status: Acute Plan: Fluids: NS @ 100ml/hr was lying on the floor and had some mild dehydration and mildly elevated CPK Electrolytes: Hyponatremia noted on admission. monitor and replete as needed Nutrition: Regular diet DVT Prophylaxis: Early ambulation. Bilateral SCDs GI Prophylaxis: None indicated at this time Pain Management: [place] 5-325 for Pain 3-5, 7.5-325 for 6-10 Problem Qualifiers (1) Acetabular fracture: Qualified Codes: S32.475A - Nondisplaced fracture of medial wall of left acetabulum, initial encounter for closed fracture (2) Multiple pelvic fractures: Qualified Codes: S32.82XA - Multiple fractures of pelvis without disruption of pelvic ring, initial encounter for closed fracture (3) Occipital scalp laceration: Qualified Codes: S01.01XA - Laceration without foreign body of scalp, initial encounter (4) Hypothyroidism: Qualified Codes: E03.9 - Hypothyroidism, unspecified Shayla Mehta MD Jul 06, 2017 09:14
--- NOTE | 2017-07-06 10:24 | RADRPT ---
EXAM DATE/TIME: 07/06/2017 09:25 [place] COMPARISON: No previous studies available for comparison. INDICATIONS : Leukocytosis. MEDICAL HISTORY : None. SURGICAL HISTORY : None. ENCOUNTER: Initial ACUITY: 2 days PAIN SCORE: 0/10 LOCATION: chest FINDINGS: Degenerative changes and scoliosis of the thoracic spine are noted. No acute focal pulmonary infiltra te or pulmonary vascular congestion is noted. Bibasilar scarring is noted. CONCLUSION: Bibasilar scarring. No acute focal pulmonary infiltrate or pulmonary vascular congestion. Degenerativ e changes and scoliosis of the thoracic spine. Mitch Evans MD on July 06, 2017 at 10:20 Board Certified Radiologist. This report was verified electronically.
[2017-07-06] MEDS: traMADol HCL 50 MG TAB PO PRN ×2 (11:41→18:02)
--- NOTE | 2017-07-06 13:09 | MB ---
cc: DAVID LAGOS DATE OF CONSULTATION: 07/06/2017 REASON FOR CONSULTATION: Bilateral pubic rami fractures. HISTORY OF PRESENT ILLNESS: Paola is an 82-year-old female who had a fall yesterday. She had walked into her computer room but left her phone in her kitchen. She tripped and fell. She did hit her head. She had immediate pelvic area pain. She did not lose consciousness. She denies dizziness, syncope or loss of consciousness. She normally ambulates with a walker. She presented to the emergency room where x-rays revealed bilateral pubic rami fractures. She is currently awake and alert on the orthopedic floor. She states that she is sore all over but has a lot of pain in her pelvis when she moves. PAST MEDICAL HISTORY / ILLNESSES: 1. Lumbar stenosis. 2. Hypothyroidism. 3. Hearing loss. PAST SURGICAL HISTORY: 1. Thyroidectomy. 2. Mastoidectomy. MEDICATIONS: 1. Lorazepam. 2. A multivitamin. 3. Tylenol #3. 4. Levothyroxine. ALLERGIES: 1. PENICILLIN. 2. SULFA. FAMILY HISTORY: Family history is noncontributory. Her parents are . SOCIAL HISTORY: The patient lives alone. She is retired. She has smoked approximately a half a pack a day for sixty-four years. She denies drug use. REVIEW OF SYSTEMS: The patient denies headache, visual changes, neck pain, chest pain, shortness of breath, abdominal pain, nausea or vomiting, recent weight loss, or numbness or tingling of the extremities. She has occasional shortness of breath secondary to chronic smoking. She complains of pelvic pain with movement. PHYSICAL EXAMINATION: GENERAL: The patient is a thin 82-year-old female. She is in no acute distress. VITAL SIGNS: Temperature 100.6, pulse 87, respirations 15, blood pressure 121/69, 02 saturation 98% on two liters nasal cannula. HEAD, EYES, EARS, NOSE, THROAT: The patient is normocephalic. Pupils are equal. NECK: The neck is soft and nontender. Trachea is midline. ABDOMEN: The abdomen is soft, nontender and nondistended. EXTREMITIES: Examination of the right upper extremity reveals minimal pain with shoulder, elbow or wrist motion. She has intact sensation in all fingers. She has good capillary refill in all fingers. Skin is intact. Examination of the left arm reveals no pain with shoulder, elbow or wrist motion. She has intact sensation in all fingers. She has good capillary refill in all fingers. Skin is intact. Examination of the bilateral lower extremities reveals mild pelvic pain with any hip range of motion. She has no tenderness around her knees, tibias or ankles bilaterally. Skin is intact in both feet. Dorsalis pedis pulses are palpable. Examination of her pelvis reveals pain with AP and lateral compression. She has mild tenderness along the pubic rami fractures. IMAGING STUDIES: CT scan of the pelvis was reviewed. CT scan reveals bilateral acetabular fractures. The left pubic rami fracture extends up into the anterior aspect of the acetabulum. The articular surfaces are in anatomic alignment. IMPRESSION: 1. Osteoporosis. 2. Chronic smoking. 3. Hypothyroidism. 4. Bilateral pubic rami fractures. PLAN: The options were discussed with the patient. At this point, I would recommend conservative treatment. The patient may weight-bear as tolerated on bilateral lower extremities. She will need to use a walker for safety. Depending on outpatient progress, she may need to go to a [facility] facility for safety and care. All questions were answered. She will need to follow up with orthopedics in two weeks. NOTE: A mid-level provider in my office, nurse practitioner or PA, may see this patient on a follow-up basis and continue to implement the objective of this plan including: Starting or adjusting medications, injections of muscle, tendon, bursa or joints, cast application, orthotic or brace application, physical therapy, further radiographic studies including x-ray, MRI, CT, ultrasounds or bone scan, vascular studies, neurologic studies, or other specialist consultations, and proceeding with surgical management as appropriate. MD ZANE Rodriguez/BLANCHE /6:38 AM /12:43 PM
[2017-07-06] MEDS ORDERED: AMIODARONE INJ 150 MG in DEXTROSE 5% IN WATER 100ML INJ 100 ML IV ONE ×2 (17:25)
[2017-07-06] MEDS ORDERED: AMIODARONE INJ 150 MG in DEXTROSE 5% IN WATER 100ML INJ 97 ML IV ONE ×2 (17:25)
[2017-07-06] MEDS ORDERED: SODIUM CHLORIDE 0.9% FLUSH 10 ML FLUSH IV FLUSH PRN (17:30)
[2017-07-06] MEDS ORDERED: DIGOXIN 0.5 MG/2 ML VIAL IV PUSH ONE (17:45)
[2017-07-06] MEDS ORDERED: DILTIAZEM HCL 25 MG/5 ML VIAL IV ONE (17:45)
[2017-07-06] MEDS ORDERED: MORPHINE SULFATE 2 MG/ML INJ IM PRN (18:00)
[2017-07-06] MEDS ORDERED: SODIUM CHLORID 0.9% 500 ML INJ 500 ML IV ONE (18:00)
--- NOTE | 2017-07-06 18:36 | HHI.FPPN ---
Addendum to progress note ADDENDUM Reason for addendum: Additonal documentation Additional information S: [facility] Patient was found to be hypotensive with BP ~80/50 and HR ~130; no symptoms reported. Patient was initially treated/evaluated by [facility] nursing staff; EKG obtained and patient found to be in A fib/flutter with rate ~130. Patient evaluated: she does not report chest pain, shortness of breath, abdominal pain, or other symptoms at this time. Patient reports some knowledge of a prior "irregular heartbeat" which was diagnosed in [place] but she is not aware of a diagnosis of atrial fibrillation. Patient states that she had one prior echocardiogram which was done as a "baseline;" she does not know the result of this. No history of known ACS/prior TX. O: VS: O2 sat >95% on 3 L O2, HR 130's-150 on telemetry, BP initially ~80/50; later ~100/70 while getting 500cc NS bolus Gen- NAD CV- irregular rhythm, elevated rate. No obvious LE edema Resp- CTAB; normal rate Abdomen-nontender to palpation Neuro- Grossly normal CN; peripheral function not assessed MSK- not assessed A/P: Atrial fibrillation; rate 130-150 in association with hypotension Impression: Presumed new onset, although vague history of irregular heartbeat previously. Hypotensive but asymptomatic -Will transfer to [facility] with Cardiology consult -Will give 500 NS bolus -Will continue to monitor on tele and check BP ~q10 min -Amiodarone 150mg IV bolus with subsequent drip -Discussed with Critical care and subsequently with Cardiology -Will give Digoxin 0.5mg IV -Will give Diltiazem 10mg IV -Continue Amiodarone -Anticoagulation discussed between Cardiology and patient; will plan to discuss further over next 1-2 days regarding anticoagulation plans after discharge -Will order echo, troponin, TSH for risk stratification Seen with Dr. Nieves Kendrick,Husam Sharma MD, R3 Jul 06, 2017 18:36
[2017-07-06] MEDS: AMIODARONE INJ 450 MG in SODIUM CHLOR 0.9% (EXCEL) INJ 250 ML IV PRN (18:43)
[2017-07-06] MEDS ORDERED: ASPIRIN 325 MG TAB PO SCH (18:45)
--- NOTE | 2017-07-06 19:39 | MB ---
cc: WILLIS TEIXEIRA M.D. DATE OF CONSULTATION: 07/06/2017. HISTORY OF PRESENT ILLNESS: Paola is a very pleasant 82-year-old lady with history of "arrhythmia" recently moved here from [place]. She thinks she had a previous echocardiogram recently. She presents after having a fall with pelvic and head injury. She notes no prior syncope, near syncope, chest pain, shortness of breath, fevers, chills, cough, GI or bleeding, paroxysmal nocturnal dyspnea, orthopnea. PAST MEDICAL HISTORY: As per the history of present illness. SOCIAL HISTORY: Denies tobacco or alcohol use. ALLERGIES: 1. PENICILLIN. 2. SULFA. MEDICATIONS PRIOR TO ADMISSION: 1. A multivitamin. 2. Vitamin D. 3. Tylenol. 4. Levothyroxine. MEDICATIONS IN THE HOSPITAL: 1. She was given Digoxin 0.5 IV x1. 2. Cardizem IV 10 milligram bolus x1. 3. Amiodarone drip. 4. Lovenox 40 subcutaneous q. 24 hours. 5. Vitamin D3 1000 units daily. PHYSICAL EXAMINATION: VITAL SIGNS: Pulse on telemetry is currently 145 beats per minute and in the chart, her pulse has ranged between 100 and 120. Respiratory rate 16. Blood pressure 99/48. Saturations 98% on three liters nasal cannula. Temperature 96.8. GENERAL: She is alert and oriented times three and in no acute distress. NECK: The neck is supple. No jugular venous distention. No bruits. CARDIOVASCULAR EXAM: S1-S2. No murmurs, rubs or gallops. LUNGS: Clear to auscultation bilaterally. ABDOMEN: The abdomen is soft, nontender and nondistended with positive bowel sounds. EXTREMITIES: No lower extremity edema. LABORATORY DATA: White count 12.9, hemoglobin 12.8, hematocrit 31.6, platelet count 89. Sodium 134, potassium 3.8, chloride 99, BUN 23, creatinine 0.60, AST 31, ALT 19. Albumin 3.0. INR 1.1. EKGS: EKG shows atrial fibrillation with a rate of 140 beats per minute. There is 0.5 to 1 mm of S-T segment depression in leads V5 and V6. IMAGING STUDIES: CT of the lumbar spine: No definite acute compression fracture identified. Severe degenerative changes of the lumbar spine with spinal stenosis L3-4, L4-5. CT of the brain: No acute abnormalities. X-rays of the sacrum reveal multiple pelvic fractures. Shoulder x-rays: Degenerative changes. Negative for fracture. Pelvic CT: Fracture of the medial wall of the acetabulum as well as bilateral pubic rami fractures. Alignment is near anatomic. Cervical spine CT: No acute fracture of the cervical spine identified. Advanced degenerative changes as above. Advanced atherosclerotic plaquing in the carotid bifurcations. DIAGNOSES: She has the following diagnoses: 1. Atrial fibrillation with rapid ventricular response. 2. Hypotension. 3. Anemia. 4. Thrombocytopenia. 5. Carotid stenosis. 6. Pelvic fractures. DISCUSSION: At this point in time, I agree with Digoxin, amiodarone drip and Cardizem bolus. The patient has a [id number] score of 2 given her age of 82. Therfore, I have recommended to her and her family that she should be on Coumadin or a novel or anticoagulant agent; however, at this point in time, the patient adamantly refuses despite informing her that her stroke risk is higher on aspirin or Plavix. The patient also refuses to take aspirin due to prior adverse reaction. Either way, would hold anticoagulation at least for the next 24 hours given her thrombocytopenia, anemia, and scalp laceration to determine trends in these parameters. The patient is being transferred to the cardiovascular unit. Recommend continuing telemetry monitoring. I would also recommend a statin given the patient's carotid stenosis and also at least Plavix; however, this based on whether or not the patient needs surgery. Will need to coordinate anticoagulation with any possible surgery, although it does not appear she needs surgery at this point in time based on reviewing the progress notes. MD PURNIMA Hanson/BLANCHE /5:45 PM /7:05 PM
[2017-07-06 20:19] LABS: INTERNATIONAL NORMALIZED RATIO 1.1 RATIO; PROTHROMBIN TIME - PATIENT 10.7 SEC (9.8-11.6)
[2017-07-06] MEDS: ATORVASTATIN 10 MG TAB PO SCH (20:42)
[2017-07-07] VITALS (27 sets, daily range): BP systolic 106–128; BP diastolic 54–61; PULSE 59–67; RESP 16–20; TEMP 97.3–98.3; O2SAT 92–97
[2017-07-07] MEDS: SODIUM CHLOR 0.9% 1000 ML INJ 1,000 ML IV SCH (01:30)
[2017-07-07 02:08] LABS: ALBUMIN 2.6 GM/DL (3.4-5.0); CALCIUM 7.1 MG/DL (8.5-10.1); CALCIUM-PROTEIN CORRECTED 8.1 MG/DL (8.5-10.1); CREATININE 0.45 MG/DL (0.50-1.00); TOTAL BILIRUBIN ADULT 0.6 MG/DL (0.2-1.0); TOTAL PROTEIN 5.2 GM/DL (6.4-8.2); TROPONIN I 0.17 NG/ML (0.02-0.05)
[2017-07-07] MEDS: traMADol HCL 50 MG TAB PO PRN ×3 (05:12→20:57)
[2017-07-07] MEDS: LEVOTHYROXINE SODIUM 25 MCG TAB PO SCH (05:12)
[2017-07-07 06:00] LABS: AUTOMATED NEUTROPHIL # 7.9 TH/MM3 (1.8-7.7); BASOPHIL % 0.2 % (0.0-2.0); EOSINOPHIL # 0.1 TH/MM3 (0-0.4); EOSINOPHIL % 0.8 % (0.0-4.0); LYMPH % 10.2 % (9.0-44.0); MEAN CELL VOLUME 95.6 FL (80.0-100.0); MEAN CORPUSCULAR HEMOGLOBIN 33.2 PG (27.0-34.0); MEAN CORPUSCULAR HGB CONC 34.7 % (32.0-36.0); MEAN PLATELET VOLUME 9.1 FL (7.0-11.0); MONO % 7.9 % (0.0-8.0); MONOCYTE # 0.8 TH/MM3 (0-0.9); NEUT % 80.9 % (16.0-70.0); PLATELET COUNT 92 TH/MM3 (150-450); RED BLOOD COUNT 2.72 MIL/MM3 (4.00-5.30); RED CELL DISTRIBUTION WIDTH 14.3 % (11.6-17.2); WHITE BLOOD COUNT 9.8 TH/MM3 (4.0-11.0)
[2017-07-07 06:34] LABS: BICARBONATE 25.6 MEQ/L (21.0-32.0); CALCIUM 7.1 MG/DL (8.5-10.1); CHOLESTEROL/ HDL RATIO 2.2 RATIO; CREATININE 0.46 MG/DL (0.50-1.00); HDL CHOLESTEROL 56.2 MG/DL (40.0-60.0)
[2017-07-07 06:58] LABS: CALCIUM-PROTEIN CORRECTED 8.1 MG/DL (8.5-10.1); TOTAL PROTEIN 5.2 GM/DL (6.4-8.2)
[2017-07-07] MEDS: AMIODARONE INJ 450 MG in SODIUM CHLOR 0.9% (EXCEL) INJ 250 ML IV PRN ×2 (07:22→20:57)
[2017-07-07] MEDS: CHOLECALCIFEROL (VIT D3) 1000 UNIT TAB PO SCH (08:34)
[2017-07-07] MEDS: ENOXAPARIN SODIUM 40 MG/0.4 ML SYRINGE SQ SCH (08:34)
[2017-07-07] MEDS: SODIUM CHLORIDE 0.9% FLUSH 10 ML FLUSH IV FLUSH SCH ×3 (08:34→20:58)
[2017-07-07] MEDS: DOCUSATE SODIUM 50 MG/SENNA 8.6 MG TAB PO SCH ×2 (08:34→20:55)
[2017-07-07] MEDS ORDERED: MORPHINE SULFATE 2 MG/ML INJ IV PUSH PRN (09:15)
--- NOTE | 2017-07-07 09:53 | HHI.FPPN ---
Subjective Remarks Saw and examined patient this morning. Patient states that she feels fine, but is still having a lot of pain. She has pain every time she tries to move. She did work with PT yesterday and was able to sit in a chair for a while. She states that she has a hx of an abnormal heart rhythm so is not really concerned about it now. No chest pain. (Malou Hall MD R1) Objective Vitals Vital Signs Date Time Temp Pulse Resp B/P (MAP) Pulse Ox O2 Delivery O2 Flow Rate FiO2 07/07/17 09:00 64 07/07/17 08:00 66 07/07/17 07:22 60 112/55 07/07/17 07:00 98.2 66 16 112/56 (74) 95 07/07/17 07:00 66 07/07/17 06:02 64 07/07/17 05:01 61 07/07/17 04:06 60 07/07/17 03:14 60 07/07/17 03:11 97.9 60 110/54 (72) 96 07/07/17 02:00 59 07/07/17 01:00 60 07/07/17 00:43 61 07/07/17 00:13 97.3 61 106/56 (73) 96 07/07/17 00:00 60 07/06/17 22:00 64 07/06/17 21:00 66 07/06/17 20:00 72 07/06/17 19:03 98.2 69 16 110/63 (79) 98 07/06/17 19:00 67 07/06/17 19:00 98.3 67 110/63 (79) 94 07/06/17 18:43 83 117/59 07/06/17 17:53 133 102/63 07/06/17 16:35 96.8 133 16 68/44 (52) 96 07/06/17 15:42 98 Nasal Cannula 3.00 07/06/17 15:40 16 07/06/17 12:41 16 07/06/17 12:00 96.8 120 16 99/48 (65) 98 07/06/17 11:09 Nasal Cannula 3.00 I/O 07/06/17 07/06/17 07/06/17 07/07/17 07/07/17 07/07/17 07:00 15:00 23:00 07:00 15:00 23:00 Intake Total 660 ml 1480 ml Balance 660 ml 1480 ml Intake Oral 660 ml 480 ml IV Total 1000 ml # Voids 1 3 # Bowel Movements 0 (Malou Hall MD R1) Result Diagram: 07/07/17 0507 07/07/17 0507 Imaging Last Impressions Chest X-Ray 07/06/17 0000 Signed Impressions: Service Date/Time: Thursday, July 06, 2017 09:25 - CONCLUSION: Bibasilar scarring. No acute focal pulmonary infiltrate or pulmonary vascular congestion. Degenerative changes and scoliosis of the thoracic spine. Mitch Evans MD Shoulder X-Ray 07/05/17 0000 Signed Impressions: Service Date/Time: Wednesday, July 05, 2017 12:28 - CONCLUSION: Degenerative changes, negative for fracture. Costa Timmons MD FACR Sacrum and Coccyx X-Ray 07/05/17 0000 Signed Impressions: Service Date/Time: Wednesday, July 05, 2017 12:32 - CONCLUSION: 1. Multiple pelvic fractures as above. CT scan is recommended for further evaluation if clinically indicated. Douglas Aviles MD Pelvis X-Ray 07/05/17 0000 Signed Impressions: Service Date/Time: Wednesday, July 05, 2017 12:40 - CONCLUSION: Fractures as described above. CT scan could be used to further evaluate the pelvic fracture. Costa Timmons MD FACR Pelvis CT 07/05/17 0000 Signed Impressions: Service Date/Time: Wednesday, July 05, 2017 13:49 - CONCLUSION: Fracture medial wall of acetabulum as well as bilateral pubic rami fracture. Alignment is near-anatomic.. Costa Timmons MD FACR Lumbar Spine X-Ray 07/05/17 0000 Signed Impressions: Service Date/Time: Wednesday, July 05, 2017 12:31 - CONCLUSION: Extensive degenerative changes lumbar spine. Minimal loss vertebral body height L2 and L3. Age-indeterminate. MRI could be used to exclude an acute compression. Costa Timmons MD FACR Lumbar Spine CT 07/05/17 0000 Signed Impressions: Service Date/Time: Wednesday, July 05, 2017 13:42 - CONCLUSION: 1. No definite acute compression fracture identified. 2. Severe degenerative changes of the lumbar spine with spinal stenosis most notably at L3/4 and L4/5. The individual levels are dictated in detail above. Channing Timmons MD Head CT 07/05/17 0000 Signed Impressions: Service Date/Time: Wednesday, July 05, 2017 13:38 - CONCLUSION: Negative for acute process. Costa Timmons MD FACR Cervical Spine CT 07/05/17 0000 Signed Impressions: Service Date/Time: Wednesday, July 05, 2017 13:36 - CONCLUSION: 1. No acute fracture the cervical spine identified. 2. Advanced degenerative changes as above. 3. Advanced atherosclerotic plaquing in the carotid bifurcations. Channing Timmons MD Objective Remarks GENERAL: Well-nourished, well-developed elderly female patient laying in bed, in no acute distress. SKIN: Warm and dry. HEAD: Normocephalic. EYES: No scleral icterus. No injection or drainage. NECK: Supple, trachea midline. No JVD or lymphadenopathy. CARDIOVASCULAR: Regular rate and rhythm without gallops, or rubs. Soft systolic murmur appreciated. RESPIRATORY: Breath sounds equal bilaterally. No accessory muscle use. GASTROINTESTINAL: Abdomen soft, non-tender, nondistended. EXTREMITIES: No cyanosis, or edema. NEUROLOGICAL: Awake, alert, and oriented x 3. Non-focal. (Malou Hall MD R1) A/P Assessment and Plan Mrs. East is a 82yo female with a PMH of hypothyroidism presenting after a hip fracture. She is being admitted to our inpatient service. Discharge Planning Clearance by Cardiology and rehab placement (Malou Hall MD R1) Attending Attestation Patient seen and examined. Case reviewed and discussed with the resident team. Agree with plan of care as discussed with me and documented in the resident note. thankfully her heart is back in sinus rhythm. appreciate help of Cardiology. she was fatigued this am so will discuss anticoagulation more with her over the next few days (Shayla Mehta MD) Problem List: (1) Atrial fibrillation and flutter ICD Codes: I48.91 - Unspecified atrial fibrillation; I48.92 - Unspecified atrial flutter Status: Acute Plan: Patient [facility]ed on 07[facility]06 and was found to be hypotensive with elevated HR. EKG revealed atrial fibrillation and flutter with RVR. Patient states that she has a hx of abnormal heart rhythm. Now back in sinus rhythm * Cardiology consulted, appreciate recommendations * Started on atorvastatin 10mg po HS * Continue to discuss anticoagulation therapy * Amiodarone drip, now in sinus rhythm with HR in 60s (2) Acetabular fracture ICD Codes: S32.409A - Unspecified fracture of unspecified acetabulum, initial encounter for closed fracture Status: Acute Plan: Multiple imaging studies on 07/05 showing nondisplaced fracture to the acetabulum of the left hip as well as bilateral pubic rami fractures. Alignment is near anatomic. * Consult orthopedics, patient is known to Dr. Ramirez * recommends conservative treatment * weight-bear as tolerated on bilateral lower extremities. Will need to use a walker for safety. * F/u as outpatient in 2 weeks * Pain management with Tramadol PRN with Morphine for breakthrough * Consult PT and OT * Consult case management for rehab placement (3) Multiple pelvic fractures ICD Codes: S32.810A - Multiple fractures of pelvis with stable disruption of pelvic ring, initial encounter for closed fracture Status: Acute Plan: See plan above (4) Elevated CPK ICD Codes: R74.8 - Abnormal levels of other serum enzymes Status: Resolved Plan: CPK at admission was 345. This maybe due to patient lying on the floor all night. CPK now normal as of 07/07. * was given IVF NS @ 100mls/hr, now d/c'd (5) Occipital scalp laceration ICD Codes: S01.01XA - Laceration without foreign body of scalp, initial encounter Status: Resolved Plan: Head CT upon admission is negative for acute process. need to watch for infection as she was on the floor all night * Laceration repaired in ED with cayden (6) Hypothyroidism ICD Codes: E03.9 - Hypothyroidism, unspecified Status: Chronic Plan: * Continue home levothyroxine (7) Tobacco abuse ICD Codes: Z72.0 - Tobacco use Status: Chronic Plan: Patient smokes half pack per day and has no interest in quitting at this time. * Nicotine patch during her stay (8) FEN Status: Acute Plan: Fluids: tolerating PO Electrolytes: Hyponatremia noted. monitor and replete as needed Nutrition: Heart healthy diet DVT Prophylaxis: Early ambulation. Lovenox 40mg qD GI Prophylaxis: None indicated at this time Pain Management: Tramadol 50 mg for Pain 3-5, 100mg for 6-10, morphine 2mg for breakthrough q4h (Malou Hall MD R1) Problem Qualifiers (1) Acetabular fracture: Qualified Codes: S32.475A - Nondisplaced fracture of medial wall of left acetabulum, initial encounter for closed fracture (2) Multiple pelvic fractures: Qualified Codes: S32.82XA - Multiple fractures of pelvis without disruption of pelvic ring, initial encounter for closed fracture (3) Occipital scalp laceration: Qualified Codes: S01.01XA - Laceration without foreign body of scalp, initial encounter (4) Hypothyroidism: Qualified Codes: E03.9 - Hypothyroidism, unspecified Malou Hall MD R1 Jul 07, 2017 09:53 Shayla Mehta MD Jul 07, 2017 13:30
[2017-07-07] MEDS ORDERED: CALCIUM CARBONATE 1.25 GM (CA 500 MG) TAB PO ONE (10:00)
--- NOTE | 2017-07-07 12:22 | PD.CARD.PN ---
Subjective Subjective Remarks alert in nad Objective Medications Current Medications Medications (Trade) Dose Ordered Sig/Markus Route Start Time Stop Time Status Last Admin (Tylenol) 650 mg Q4H PRN PO 07/05/17 15:45 07/06/17 14:40 (Keke-Colace) 1 tab BID PO 07/05/17 21:00 07/07/17 08:34 (Milk Of Magnesia Liq) 30 ml Q12H PRN PO 07/05/17 15:45 (Senokot) 17.2 mg Q12H PRN PO 07/05/17 15:45 (Dulcolax Supp) 10 mg DAILY PRN RECTAL 07/05/17 15:45 (Lactulose Liq) 30 ml DAILY PRN PO 07/05/17 15:45 (Vitamin D3) 1,000 units DAILY PO 07/06/17 09:00 07/07/17 08:34 (Synthroid) 25 mcg DAILY@0600 PO 07/06/17 06:00 07/07/17 05:12 (Narcan Inj) 0.4 mg UNSCH PRN IV PUSH 07/05/17 16:45 (Lovenox Inj) 40 mg Q24H SQ 07/06/17 08:00 07/07/17 08:34 (Ultram) 50 mg Q4H PRN PO 07/06/17 09:15 07/06/17 11:41 (Ultram) 100 mg Q4H PRN PO 07/06/17 09:15 07/07/17 05:12 (NS Flush) 2 ml UNSCH PRN IV FLUSH 07/06/17 17:30 (NS Flush) 2 ml BID IV FLUSH 07/06/17 21:00 07/07/17 08:34 Amiodarone HCl 450 mg/Sodium Chloride 259 ml @ 33.33 mls/ hr Q7H47M PRN IV 07/06/17 17:35 07/07/17 07:22 (Morphine Inj) 2 mg ONCE PRN IM 07/06/17 18:00 07/07/17 17:59 (Lipitor) 10 mg HS PO 07/06/17 21:00 07/06/17 20:42 (Morphine Inj) 2 mg Q4H PRN IV PUSH 07/07/17 09:15 Vital Signs / I&O Vital Signs Date Time Temp Pulse Resp B/P (MAP) Pulse Ox O2 Delivery O2 Flow Rate FiO2 07/07/17 11:00 98.3 65 16 112/56 (74) 96 07/07/17 11:00 65 07/07/17 10:00 66 07/07/17 09:00 64 07/07/17 08:00 66 07/07/17 07:22 60 112/55 07/07/17 07:00 98.2 66 16 112/56 (74) 95 07/07/17 07:00 66 07/07/17 06:02 64 07/07/17 05:01 61 07/07/17 04:06 60 07/07/17 03:14 60 07/07/17 03:11 97.9 60 110/54 (72) 96 07/07/17 02:00 59 07/07/17 01:00 60 07/07/17 00:43 61 07/07/17 00:13 97.3 61 106/56 (73) 96 07/07/17 00:00 60 07/06/17 22:00 64 07/06/17 21:00 66 07/06/17 20:00 72 07/06/17 19:03 98.2 69 16 110/63 (79) 98 07/06/17 19:00 67 07/06/17 19:00 98.3 67 110/63 (79) 94 07/06/17 18:43 83 117/59 07/06/17 17:53 133 102/63 07/06/17 16:35 96.8 133 16 68/44 (52) 96 07/06/17 15:42 98 Nasal Cannula 3.00 07/06/17 15:40 16 07/06/17 12:41 16 I/O 07/06/17 07/06/17 07/06/17 07/07/17 07/07/17 07/07/17 07:00 15:00 23:00 07:00 15:00 23:00 Intake Total 660 ml 1480 ml Balance 660 ml 1480 ml Intake Oral 660 ml 480 ml IV Total 1000 ml # Voids 1 3 # Bowel Movements 0 Physical Exam GENERAL: SKIN: Warm and dry. HEAD: Normocephalic. EYES: No scleral icterus. No injection or drainage. NECK: Supple, trachea midline. No JVD or lymphadenopathy. CARDIOVASCULAR: Regular rate and rhythm without murmurs, gallops, or rubs. RESPIRATORY: Breath sounds equal bilaterally. No accessory muscle use. GASTROINTESTINAL: Abdomen soft, non-tender, nondistended. MUSCULOSKELETAL: No cyanosis, or edema. BACK: Nontender without obvious deformity. No CVA tenderness. Laboratory Laboratory Tests Test 07/06/17 19:24 07/07/17 01:25 07/07/17 05:07 Prothrombin Time 10.7 SEC Prothromb Time International Ratio 1.1 RATIO Activated Partial Thromboplast Time 27.0 SEC Troponin I 0.14 NG/ML 0.17 NG/ML Blood Urea Nitrogen 23 MG/DL 21 MG/DL Creatinine 0.45 MG/DL 0.46 MG/DL Random Glucose 92 MG/DL 94 MG/DL Total Protein 5.2 GM/DL 5.2 GM/DL Albumin 2.6 GM/DL Calcium Level 7.1 MG/DL 7.1 MG/DL Alkaline Phosphatase 36 U/L Aspartate Amino Transf (AST/SGOT) 27 U/L Alanine Aminotransferase (ALT/SGPT) 21 U/L Total Bilirubin 0.6 MG/DL Sodium Level 131 MEQ/L 132 MEQ/L Potassium Level 3.9 MEQ/L 3.9 MEQ/L Chloride Level 98 MEQ/L 99 MEQ/L Carbon Dioxide Level 27.0 MEQ/L 25.6 MEQ/L Anion Gap 6 MEQ/L 7 MEQ/L Estimat Glomerular Filtration Rate 133 ML/MIN 130 ML/MIN Protein Corrected Calcium 8.1 MG/DL 8.1 MG/DL Thyroid Stimulating Hormone 3rd Gen 3.590 uIU/ML White Blood Count 9.8 TH/MM3 Red Blood Count 2.72 MIL/MM3 Hemoglobin 9.0 GM/DL Hematocrit 26.0 % Mean Corpuscular Volume 95.6 FL Mean Corpuscular Hemoglobin 33.2 PG Mean Corpuscular Hemoglobin Concent 34.7 % Red Cell Distribution Width 14.3 % Platelet Count 92 TH/MM3 Mean Platelet Volume 9.1 FL Neutrophils (%) (Auto) 80.9 % Lymphocytes (%) (Auto) 10.2 % Monocytes (%) (Auto) 7.9 % Eosinophils (%) (Auto) 0.8 % Basophils (%) (Auto) 0.2 % Neutrophils # (Auto) 7.9 TH/MM3 Lymphocytes # (Auto) 1.0 TH/MM3 Monocytes # (Auto) 0.8 TH/MM3 Eosinophils # (Auto) 0.1 TH/MM3 Basophils # (Auto) 0.0 TH/MM3 CBC Comment DIFF FINAL Differential Comment Total Creatine Kinase 122 U/L Triglycerides Level 66 MG/DL Cholesterol Level 124 MG/DL LDL Cholesterol 55 MG/DL HDL Cholesterol 56.2 MG/DL Cholesterol/HDL Ratio 2.20 RATIO Assessment and Plan Problem List: (1) Multiple pelvic fractures ICD Codes: S32.810A - Multiple fractures of pelvis with stable disruption of pelvic ring, initial encounter for closed fracture Status: Acute (2) Atrial fibrillation and flutter ICD Codes: I48.91 - Unspecified atrial fibrillation; I48.92 - Unspecified atrial flutter Status: Acute Assessment and Plan 1.) PAF - in nsr, assymptomatic today, rec coumadin or noac due to CHADSVASC score = 2; patient undecided, will start aspirin 81 mg in the mean time Problem Qualifiers (1) Multiple pelvic fractures: Qualified Codes: S32.82XA - Multiple fractures of pelvis without disruption of pelvic ring, initial encounter for closed fracture Kam Desai MD Jul 07, 2017 12:22
--- NOTE | 2017-07-07 12:59 | EKG ---
Date Performed: 07/06/2017 Time Performed: 17:02:55 PTAGE: 82 years EKG: Atrial fibrillation with rapid ventricular response Prominent lateral precordial voltage Di ffuse nonspecific ST-T change NO PREVIOUS TRACING DOCTOR: Vel Mari Interpretating Date/Time 07/07/2017 12:57:04
--- NOTE | 2017-07-07 12:59 | EKG ---
Date Performed: 07/06/2017 Time Performed: 21:12:36 PTAGE: 82 years EKG: Sinus rhythm with PVC(s) with PAC(s) Possible LVH with secondary repolarization abnormality Extensive ST-T change s may be due to hypertrophy and/or ischemia Abnormal ECG PREVIOUS TRACING : 07/06/2017 17.02 Since previous tracing, there is a rhythm change from atria l fibrillation to sinus rhythm with PACs. DOCTOR: Vel Mari Interpretating Date/Time 07/07/2017 12:57:47
--- NOTE | 2017-07-07 17:12 | ECHRPT ---
Indication: HYPERTENSIVE HEART DISEASE CONCLUSIONS The left ventricular systolic function is normal with an estimated ejection fraction in the range of 60-65%. Normal left ventricular size. Wall thickness is normal. No regional wall motion abnormalities are present. Severe thickening of the mitral valve leaflets. Calcification of both mitral valve leaflets. Severe mitral annular calcification. Mild mitral valve regurgitation. Severe thickening of the aortic valve leaflets. Mild aortic valve regurgitation. Severe aortic valve stenosis. Aortic valve area is 0.47 cm. There is moderate to severe tricuspid valve regurgitation. There is estimated severe pulmonary hypertension present ( > 70 mmHg). Mild pulmonary valve regurgitation. The inferior vena cava is dilated. There is a small pericardial effusion present. BP: 112 / 55 HR: 96 Rhythm: Sinus MEASUREMENTS (Male / Female) Normal Values Technical Quality:Fair 2D ECHO LV Diastolic Diameter PLAX 3.9 cm 4.2 - 5.9 / 3.9 - 5.3 cm LV Systolic Diameter PLAX 2.6 cm IVS Diastolic Thickness 1.1 cm 0.6 - 1.0 / 0.6 - 0.9 cm LVPW Diastolic Thickness 1.1 cm 0.6 - 1.0 / 0.6 - 0.9 cm LV Relative Wall Thickness 0.6 RV Internal Dim ED PLAX 2.8 cm LVOT Diameter 1.5 cm LA Systolic Diameter LX 3.6 cm 3.0 - 4.0 / 2.7 - 3.8 cm M-MODE Aortic Root Diameter MM 2.4 cm LA Systolic Diameter MM 3.6 cm LA Ao Ratio MM 1.5 AV Cusp Separation MM 0.9 cm DOPPLER AV Peak Velocity 434.0 cm/s AV Peak Gradient 75.3 mmHg AV Mean Gradient 36.0 mmHg AV Velocity Time Integral 85.6 cm LVOT Peak Velocity 114.0 cm/s LVOT Peak Gradient 5.2 mmHg LVOT Velocity Time Integral 22.6 cm LVOT Cardiac Index 2499.6 cm/minm AV Area Cont Eq vti 0.5 cm AV Area Cont Eq pk 0.5 cm MV Peak Velocity 137.0 cm/s MV Peak Gradient 7.5 mmHg MV Mean Velocity 82.1 cm/s MV Mean Gradient 3.0 mmHg MV Area PHT 2.3 cm Mitral E Point Velocity 122.0 cm/s Mitral A Point Velocity 104.0 cm/s Mitral E to A Ratio 1.2 LV E' Lateral Velocity 7.1 cm/s Mitral E to LV E' Lateral Ratio 17.1 LV E' Septal Velocity 5.8 cm/s Mitral E to LV E' Septal Ratio 21.2 TR Peak Velocity 393.0 cm/s TR Peak Gradient 61.8 mmHg Right Atrial Pressure 10.0 mmHg Pulmonary Artery Systolic Pressu 71.8 mmHg Right Ventricular Systolic Press 71.8 mmHg PV Peak Velocity 102.0 cm/s PV Peak Gradient 4.2 mmHg FINDINGS LEFT VENTRICLE The left ventricular systolic function is normal with an estimated ejection fraction in the range of 60-65%. Normal left ventricular size. Wall thickness is normal. No regional wall motion abnormalities are present. RIGHT VENTRICLE Normal right ventricular size and systolic function. LEFT ATRIUM The left atrial size is normal. RIGHT ATRIUM The right atrial size is normal. ATRIAL SEPTUM Normal atrial septal thickness without atrial level shunting by limited color doppler interrogation. AORTA The aortic root and proximal ascending aorta are normal in size on limited imaging. MITRAL VALVE Severe thickening of the mitral valve leaflets. Calcification of both mitral valve leaflets. Severe mitral annular calcification. Mild mitral valve regurgitation. AORTIC VALVE Trileaflet aortic valve. Severe thickening of the aortic valve leaflets. Mild aortic valve regurgitation. Severe aortic valve stenosis. Aortic valve area is 0.47 cm. Aortic valve mean gradient is 36 mmHg. TRICUSPID VALVE Structurally normal tricuspid valve. There is moderate to severe tricuspid valve regurgitation. There is estimated severe pulmonary hypertension present ( > 70 mmHg). PULMONARY VALVE Mild pulmonary valve regurgitation. VESSELS The inferior vena cava is dilated. PERICARDIUM There is a small pericardial effusion present. Eugenio Massey MD (Electronically Signed) Final Date:07 July 2017 17:10
[2017-07-07] MEDS: ATORVASTATIN 10 MG TAB PO SCH (20:55)
[2017-07-08] VITALS (24 sets, daily range): BP systolic 113–136; BP diastolic 56–68; PULSE 38–77; RESP 17–21; TEMP 97.9–98.9; O2SAT 92–96
[2017-07-08 04:10] LABS: HEMATOCRIT 25.8 % (35.0-46.0); HEMOGLOBIN 8.8 GM/DL (11.6-15.3); MEAN CELL VOLUME 95.5 FL (80.0-100.0); MEAN CORPUSCULAR HEMOGLOBIN 32.6 PG (27.0-34.0); MEAN CORPUSCULAR HGB CONC 34.1 % (32.0-36.0); MEAN PLATELET VOLUME 8.4 FL (7.0-11.0); PLATELET COUNT 99 TH/MM3 (150-450); RED BLOOD COUNT 2.71 MIL/MM3 (4.00-5.30); RED CELL DISTRIBUTION WIDTH 13.8 % (11.6-17.2); WHITE BLOOD COUNT 7.8 TH/MM3 (4.0-11.0)
[2017-07-08 04:23] LABS: BICARBONATE 28.4 MEQ/L (21.0-32.0); CALCIUM 7.6 MG/DL (8.5-10.1); CREATININE 0.44 MG/DL (0.50-1.00)
[2017-07-08 04:27] LABS: TROPONIN I 0.06 NG/ML (0.02-0.05)
[2017-07-08] MEDS: LEVOTHYROXINE SODIUM 25 MCG TAB PO SCH (05:23)
[2017-07-08] MEDS: traMADol HCL 50 MG TAB PO PRN ×3 (05:23→21:19)
[2017-07-08] MEDS: ENOXAPARIN SODIUM 40 MG/0.4 ML SYRINGE SQ SCH (08:50)
[2017-07-08] MEDS: DOCUSATE SODIUM 50 MG/SENNA 8.6 MG TAB PO SCH ×2 (08:50→21:19)
[2017-07-08] MEDS: CHOLECALCIFEROL (VIT D3) 1000 UNIT TAB PO SCH (08:51)
[2017-07-08] MEDS: SODIUM CHLORIDE 0.9% FLUSH 10 ML FLUSH IV FLUSH SCH ×2 (08:58→21:00)
--- NOTE | 2017-07-08 11:57 | HHI.FPPN ---
Subjective Remarks Ms East had no acute events overnight. She feels like her pain is controlled until she moves, then the pain is not controlled. She is eating and drinking w/ o nausea or vomiting, voiding and stooling, but has limited activity due to her pelvic pain. Discussed goals today of restarting baby aspirin and discussing more robust anticoagulation with her daughter, working with PT to get to the edge of bed, adding tylenol with codeine for pain control, and working with cardiology to transition her IV antiarrhythmics to PO medications. Pt feels like she is not ready to go to rehab yet but agrees this is the best plan for her. Denies CP, SOB, N/V/D, and DVT leg pain. (Andrea Jolly MD R1) Objective Vitals Vital Signs Date Time Temp Pulse Resp B/P (MAP) Pulse Ox O2 Delivery O2 Flow Rate FiO2 07/08/17 11:00 98.4 65 20 133/57 (82) 92 07/08/17 11:00 38 07/08/17 10:00 68 07/08/17 09:00 64 07/08/17 08:00 60 07/08/17 08:00 98.9 62 18 113/68 (83) 94 07/08/17 07:00 58 07/08/17 06:25 61 07/08/17 05:28 69 07/08/17 04:32 63 07/08/17 03:58 97.9 64 17 115/59 (77) 96 07/08/17 03:58 62 07/08/17 02:45 63 07/08/17 01:31 65 07/08/17 00:12 62 07/07/17 23:44 98.0 67 18 128/61 (83) 92 07/07/17 23:15 63 07/07/17 22:00 66 07/07/17 21:00 62 07/07/17 20:57 70 117/58 07/07/17 20:00 64 07/07/17 19:53 Nasal Cannula 2.00 07/07/17 19:50 65 07/07/17 19:50 97.8 67 20 117/58 (77) 93 07/07/17 18:00 63 07/07/17 17:00 60 07/07/17 16:00 65 07/07/17 15:00 98.0 64 16 120/59 (79) 97 07/07/17 15:00 64 07/07/17 14:42 16 07/07/17 14:01 67 07/07/17 12:00 66 I/O 07/07/17 07/07/17 07/07/17 07/08/17 07/08/17 07/08/17 07:00 15:00 23:00 07:00 15:00 23:00 Intake Total 1480 ml 200 ml 480 ml Output Total 500 ml 420 ml Balance 1480 ml -300 ml 60 ml Intake Oral 480 ml 200 ml 480 ml IV Total 1000 ml Output Urine Total 500 ml 420 ml # Voids 3 # Bowel Movements 1 0 (Andrea Jolly MD R1) Result Diagram: 07/08/1735707/08/17357 Objective Remarks GENERAL: Well-nourished, well-developed elderly female patient laying in bed, in no acute distress. SKIN: Warm and dry. HEAD: Normocephalic. EYES: No scleral icterus. No injection or drainage. NECK: Supple, trachea midline. No JVD or lymphadenopathy. CARDIOVASCULAR: Regular rate and rhythm without gallops, or rubs. Soft systolic murmur appreciated. RESPIRATORY: Breath sounds equal bilaterally. No accessory muscle use. GASTROINTESTINAL: Abdomen soft, non-tender, nondistended. EXTREMITIES: No cyanosis, or edema. NEUROLOGICAL: Awake, alert, and oriented x 3. Non-focal. Medications and IVs Current Medications Medications (Trade) Dose Ordered Sig/Markus Route Start Time Stop Time Status Last Admin (Tylenol) 650 mg Q4H PRN PO 07/05/17 15:45 07/06/17 14:40 (Keke-Colace) 1 tab BID PO 07/05/17 21:00 07/08/17 08:50 (Milk Of Magnesia Liq) 30 ml Q12H PRN PO 07/05/17 15:45 (Senokot) 17.2 mg Q12H PRN PO 07/05/17 15:45 (Dulcolax Supp) 10 mg DAILY PRN RECTAL 07/05/17 15:45 (Lactulose Liq) 30 ml DAILY PRN PO 07/05/17 15:45 (Vitamin D3) 1,000 units DAILY PO 07/06/17 09:00 07/08/17 08:51 (Synthroid) 25 mcg DAILY@0600 PO 07/06/17 06:00 07/08/17 05:23 (Narcan Inj) 0.4 mg UNSCH PRN IV PUSH 07/05/17 16:45 (Lovenox Inj) 40 mg Q24H SQ 07/06/17 08:00 07/08/17 08:50 (Ultram) 50 mg Q4H PRN PO 07/06/17 09:15 07/08/17 08:51 (Ultram) 100 mg Q4H PRN PO 07/06/17 09:15 07/08/17 05:23 (NS Flush) 2 ml UNSCH PRN IV FLUSH 07/06/17 17:30 (NS Flush) 2 ml BID IV FLUSH 07/06/17 21:00 07/07/17 20:58 Amiodarone HCl 450 mg/Sodium Chloride 259 ml @ 33.33 mls/ hr Q7H47M PRN IV 07/06/17 17:35 07/07/17 20:57 (Lipitor) 10 mg HS PO 07/06/17 21:00 07/07/17 20:55 (Tylenol-Codeine #3) 0.5 tab Q6H PRN PO 07/08/17 11:00 (Andrea Jolly MD R1) Vascular Central Line Catheter: No (Andrea Jolly MD R1) A/P Assessment and Plan Mrs. East is a 82yo female with a PMH of hypothyroidism presenting after a hip fracture. She is being admitted to our inpatient service. Discharge Planning Clearance by Cardiology and rehab placement (Andrea Jolly MD R1) Attending Attestation Patient seen and examined. Case reviewed and discussed with the resident team. Agree with plan of care as discussed with me and documented in the resident note. agree with increasing pain meds. however, will need to watch for confusion/ hallucinations. she had visual hallucinations after getting narcotics in the ED (Shayla Mehta MD) Problem List: (1) Atrial fibrillation and flutter ICD Codes: I48.91 - Unspecified atrial fibrillation; I48.92 - Unspecified atrial flutter Status: Acute Plan: [facility] was found to be hypotensive with elevated HR. EKG revealed atrial fibrillation and flutter with RVR. Patient states that she has a hx of abnormal heart rhythm. Now back in sinus rhythm * Cardiology consulted, appreciate recommendations * Started on atorvastatin 10mg po HS * Continue to discuss anticoagulation therapy--pt agreed to restart baby aspirin 07/08 and will consider taking another anticoagulant with concurrence of her daughter. Nursing has spoken with her daughter who agrees with additional anticoagulant; however, working to find what agent she had taken prior to this hospitalization * Amiodarone drip, now in sinus rhythm with HR in 60s--appreciate Cardiology recs for PO dosing and agent(s) (2) Acetabular fracture ICD Codes: S32.409A - Unspecified fracture of unspecified acetabulum, initial encounter for closed fracture Status: Acute Plan: Multiple imaging studies on 07/05 showing nondisplaced fracture to the acetabulum of the left hip as well as bilateral pubic rami fractures. Alignment is near anatomic. * Consult orthopedics, patient is known to Dr. Ramirez * recommends conservative treatment * weight-bear as tolerated on bilateral lower extremities. Will need to use a walker for safety. * F/u as outpatient in 2 weeks * Pain management with Tramadol PRN with Morphine for breakthrough * PT and OT are working with pt; goal to get pt to edge of bed or into chair with assistance * Consult case management for rehab placement (3) Multiple pelvic fractures ICD Codes: S32.810A - Multiple fractures of pelvis with stable disruption of pelvic ring, initial encounter for closed fracture Status: Acute Plan: See plan above (4) Elevated CPK ICD Codes: R74.8 - Abnormal levels of other serum enzymes Status: Resolved Plan: CPK at admission was 345. This maybe due to patient lying on the floor all night. CPK now normal as of 07/07. * was given IVF NS @ 100mls/hr, now d/c'd (5) Occipital scalp laceration ICD Codes: S01.01XA - Laceration without foreign body of scalp, initial encounter Status: Resolved Plan: Head CT upon admission is negative for acute process. need to watch for infection as she was on the floor all night * Laceration repaired in ED with cayden * Wound c/d/i and healing (6) Hypothyroidism ICD Codes: E03.9 - Hypothyroidism, unspecified Status: Chronic Plan: * Continue home levothyroxine (7) Tobacco abuse ICD Codes: Z72.0 - Tobacco use Status: Chronic Plan: Patient smokes half pack per day and has no interest in quitting at this time. * Nicotine patch during her stay (8) FEN Status: Acute Plan: Fluids: tolerating PO Electrolytes: Hyponatremia noted. monitor and replete as needed Nutrition: Heart healthy diet DVT Prophylaxis: ASA 81mg; will add additional agent as above GI Prophylaxis: None indicated at this time Pain Management: Tramadol 50 mg for Pain 3-5, 100mg for 6-10, discontinued morphine 2mg; started Tylenol w/codeine for breakthrough q4h (Andrea Jolly MD R1) Problem Qualifiers (1) Acetabular fracture: Qualified Codes: S32.475A - Nondisplaced fracture of medial wall of left acetabulum, initial encounter for closed fracture (2) Multiple pelvic fractures: Qualified Codes: S32.82XA - Multiple fractures of pelvis without disruption of pelvic ring, initial encounter for closed fracture (3) Occipital scalp laceration: Qualified Codes: S01.01XA - Laceration without foreign body of scalp, initial encounter (4) Hypothyroidism: Qualified Codes: E03.9 - Hypothyroidism, unspecified Andrea Jolly MD R1 Jul 08, 2017 11:57 Shayla Mehta MD Jul 09, 2017 12:26
[2017-07-08] MEDS: ACETAMINOPHEN/CODEINE 300 MG/30 MG TAB PO PRN ×2 (13:09→18:35)
--- NOTE | 2017-07-08 15:08 | PD.CARD.PN ---
Subjective Subjective Remarks alert in nad Objective Medications Current Medications Medications (Trade) Dose Ordered Sig/Markus Route Start Time Stop Time Status Last Admin (Tylenol) 650 mg Q4H PRN PO 07/05/17 15:45 07/06/17 14:40 (Keke-Colace) 1 tab BID PO 07/05/17 21:00 07/08/17 08:50 (Milk Of Magnesia Liq) 30 ml Q12H PRN PO 07/05/17 15:45 07/08/17 12:22 (Senokot) 17.2 mg Q12H PRN PO 07/05/17 15:45 (Dulcolax Supp) 10 mg DAILY PRN RECTAL 07/05/17 15:45 (Lactulose Liq) 30 ml DAILY PRN PO 07/05/17 15:45 (Vitamin D3) 1,000 units DAILY PO 07/06/17 09:00 07/08/17 08:51 (Synthroid) 25 mcg DAILY@0600 PO 07/06/17 06:00 07/08/17 05:23 (Narcan Inj) 0.4 mg UNSCH PRN IV PUSH 07/05/17 16:45 (Lovenox Inj) 40 mg Q24H SQ 07/06/17 08:00 07/08/17 08:50 (Ultram) 50 mg Q4H PRN PO 07/06/17 09:15 07/08/17 08:51 (Ultram) 100 mg Q4H PRN PO 07/06/17 09:15 07/08/17 05:23 (NS Flush) 2 ml UNSCH PRN IV FLUSH 07/06/17 17:30 (NS Flush) 2 ml BID IV FLUSH 07/06/17 21:00 07/07/17 20:58 Amiodarone HCl 450 mg/Sodium Chloride 259 ml @ 33.33 mls/ hr Q7H47M PRN IV 07/06/17 17:35 07/07/17 20:57 (Lipitor) 10 mg HS PO 07/06/17 21:00 07/07/17 20:55 (Tylenol-Codeine #3) 0.5 tab Q6H PRN PO 07/08/17 11:00 07/08/17 13:09 Vital Signs / I&O Vital Signs Date Time Temp Pulse Resp B/P (MAP) Pulse Ox O2 Delivery O2 Flow Rate FiO2 07/08/17 14:00 74 07/08/17 13:00 66 07/08/17 12:00 60 07/08/17 11:00 98.4 65 20 133/57 (82) 92 07/08/17 11:00 38 07/08/17 10:00 68 07/08/17 09:00 64 07/08/17 08:00 60 07/08/17 08:00 98.9 62 18 113/68 (83) 94 07/08/17 07:00 58 07/08/17 06:25 61 07/08/17 05:28 69 07/08/17 04:32 63 07/08/17 03:58 97.9 64 17 115/59 (77) 96 07/08/17 03:58 62 07/08/17 02:45 63 07/08/17 01:31 65 07/08/17 00:12 62 07/07/17 23:44 98.0 67 18 128/61 (83) 92 07/07/17 23:15 63 07/07/17 22:00 66 07/07/17 21:00 62 07/07/17 20:57 70 117/58 07/07/17 20:00 64 07/07/17 19:53 Nasal Cannula 2.00 07/07/17 19:50 65 07/07/17 19:50 97.8 67 20 117/58 (77) 93 07/07/17 18:00 63 07/07/17 17:00 60 07/07/17 16:00 65 I/O 07/07/17 07/07/17 07/07/17 07/08/17 07/08/17 07/08/17 07:00 15:00 23:00 07:00 15:00 23:00 Intake Total 1480 ml 200 ml 480 ml Output Total 500 ml 420 ml Balance 1480 ml -300 ml 60 ml Intake Oral 480 ml 200 ml 480 ml IV Total 1000 ml Output Urine Total 500 ml 420 ml # Voids 3 # Bowel Movements 1 0 Physical Exam GENERAL: SKIN: Warm and dry. HEAD: Normocephalic. EYES: No scleral icterus. No injection or drainage. NECK: Supple, trachea midline. No JVD or lymphadenopathy. CARDIOVASCULAR: Regular rate and rhythm without murmurs, gallops, or rubs. RESPIRATORY: Breath sounds equal bilaterally. No accessory muscle use. GASTROINTESTINAL: Abdomen soft, non-tender, nondistended. MUSCULOSKELETAL: No cyanosis, or edema. BACK: Nontender without obvious deformity. No CVA tenderness. Laboratory Laboratory Tests Test 07/08/17 03:58 White Blood Count 7.8 TH/MM3 Red Blood Count 2.71 MIL/MM3 Hemoglobin 8.8 GM/DL Hematocrit 25.8 % Mean Corpuscular Volume 95.5 FL Mean Corpuscular Hemoglobin 32.6 PG Mean Corpuscular Hemoglobin Concent 34.1 % Red Cell Distribution Width 13.8 % Platelet Count 99 TH/MM3 Mean Platelet Volume 8.4 FL Blood Urea Nitrogen 15 MG/DL Creatinine 0.44 MG/DL Random Glucose 91 MG/DL Calcium Level 7.6 MG/DL Sodium Level 130 MEQ/L Potassium Level 3.9 MEQ/L Chloride Level 96 MEQ/L Carbon Dioxide Level 28.4 MEQ/L Anion Gap 6 MEQ/L Estimat Glomerular Filtration Rate 137 ML/MIN Troponin I 0.06 NG/ML Assessment and Plan Problem List: (1) Multiple pelvic fractures ICD Codes: S32.810A - Multiple fractures of pelvis with stable disruption of pelvic ring, initial encounter for closed fracture Status: Acute (2) Atrial fibrillation and flutter ICD Codes: I48.91 - Unspecified atrial fibrillation; I48.92 - Unspecified atrial flutter Status: Acute Assessment and Plan 1.) PAF - in nsr, assymptomatic today, rec coumadin or noac due to CHADSVASC score = 2; patient requests coumadin, will hold for now due unstable hgb and plt count, anemia and thrombocytopenia, continue aspirin 81 mg in the mean time , dc gudelia pope, d/w nurse and patient at the bedside Problem Qualifiers (1) Multiple pelvic fractures: Qualified Codes: S32.82XA - Multiple fractures of pelvis without disruption of pelvic ring, initial encounter for closed fracture Kam Desai MD Jul 08, 2017 15:08
[2017-07-08] MEDS: ATORVASTATIN 10 MG TAB PO SCH (21:19)
[2017-07-08] MEDS ORDERED: ACETAMINOPHEN/HYDROcodone 325 MG/5 MG TAB PO ONE (22:00)
[2017-07-09] VITALS (25 sets, daily range): BP systolic 107–143; BP diastolic 51–63; PULSE 58–85; RESP 18–19; TEMP 97.6–98.8; O2SAT 92–98
[2017-07-09] MEDS: ACETAMINOPHEN/CODEINE 300 MG/30 MG TAB PO PRN ×3 (02:58→14:42)
[2017-07-09 04:55] LABS: HEMATOCRIT 25.8 % (35.0-46.0); HEMOGLOBIN 8.8 GM/DL (11.6-15.3); MEAN CELL VOLUME 95.1 FL (80.0-100.0); MEAN CORPUSCULAR HEMOGLOBIN 32.6 PG (27.0-34.0); MEAN CORPUSCULAR HGB CONC 34.3 % (32.0-36.0); MEAN PLATELET VOLUME 8.5 FL (7.0-11.0); PLATELET COUNT 121 TH/MM3 (150-450); RED BLOOD COUNT 2.71 MIL/MM3 (4.00-5.30); WHITE BLOOD COUNT 7.5 TH/MM3 (4.0-11.0)
[2017-07-09 05:20] LABS: BICARBONATE 30.1 MEQ/L (21.0-32.0); CALCIUM 7.5 MG/DL (8.5-10.1); CREATININE 0.38 MG/DL (0.50-1.00)
[2017-07-09] MEDS: LEVOTHYROXINE SODIUM 25 MCG TAB PO SCH (06:00)
[2017-07-09] MEDS: ASPIRIN 81 MG CHEW TAB CHEW SCH (08:31)
[2017-07-09] MEDS: ENOXAPARIN SODIUM 40 MG/0.4 ML SYRINGE SQ SCH (08:31)
[2017-07-09] MEDS: SODIUM CHLORIDE 0.9% FLUSH 10 ML FLUSH IV FLUSH SCH ×2 (08:32→20:36)
[2017-07-09] MEDS: DOCUSATE SODIUM 50 MG/SENNA 8.6 MG TAB PO SCH ×2 (08:32→20:35)
[2017-07-09] MEDS: CHOLECALCIFEROL (VIT D3) 1000 UNIT TAB PO SCH (08:32)
--- NOTE | 2017-07-09 13:45 | PD.PN.STU ---
Subjective Remarks PT is an 82 yo white female day [facility] hospital stay for multiple pelvic fractures after a fall and A fib with RVR who is hav Objective Vitals Vital Signs Date Time Temp Pulse Resp B/P (MAP) Pulse Ox O2 Delivery O2 Flow Rate FiO2 07/09/17 13:37 98 Nasal Cannula 2.00 07/09/17 12:00 68 07/09/17 11:00 69 07/09/17 11:00 98.1 74 18 107/51 (69) 94 07/09/17 10:00 68 07/09/17 09:00 70 07/09/17 08:00 62 07/09/17 07:40 97.6 62 18 126/60 (82) 95 07/09/17 07:40 62 07/09/17 06:29 58 07/09/17 05:51 60 07/09/17 04:08 61 07/09/17 03:43 98.6 74 19 125/61 (82) 96 07/09/17 03:43 64 07/09/17 02:02 67 07/09/17 01:30 67 07/08/17 23:32 98.4 68 21 136/64 (88) 96 07/08/17 23:32 67 07/08/17 22:13 69 07/08/17 21:41 75 07/08/17 20:27 68 07/08/17 19:40 98.6 71 19 128/60 (82) 92 07/08/17 19:40 63 07/08/17 18:00 64 07/08/17 17:00 62 07/08/17 16:00 62 07/08/17 15:00 70 07/08/17 15:00 97.9 77 18 121/56 (77) 94 07/08/17 14:00 74 I/O 07/08/17 07/08/17 07/08/17 07/09/17 07/09/17 07/09/17 07:00 15:00 23:00 07:00 15:00 23:00 Intake Total 480 ml 720 ml 480 ml Output Total 420 ml 500 ml 500 ml Balance 60 ml 220 ml -20 ml Intake Oral 480 ml 720 ml 480 ml Output Urine Total 420 ml 500 ml 500 ml # Voids 4 # Bowel Movements 0 1 1 Result Diagram: 07/09/1743307/09/17433 Trisha Clemons Jul 09, 2017 13:45
--- NOTE | 2017-07-09 14:54 | PD.CARD.PN ---
Subjective Subjective Remarks alert in nad Objective Medications Current Medications Medications (Trade) Dose Ordered Sig/Markus Route Start Time Stop Time Status Last Admin (Tylenol) 650 mg Q4H PRN PO 07/05/17 15:45 07/06/17 14:40 (Keke-Colace) 1 tab BID PO 07/05/17 21:00 07/08/17 21:19 (Milk Of Magnesia Liq) 30 ml Q12H PRN PO 07/05/17 15:45 07/08/17 12:22 (Senokot) 17.2 mg Q12H PRN PO 07/05/17 15:45 (Dulcolax Supp) 10 mg DAILY PRN RECTAL 07/05/17 15:45 (Lactulose Liq) 30 ml DAILY PRN PO 07/05/17 15:45 (Vitamin D3) 1,000 units DAILY PO 07/06/17 09:00 07/09/17 08:32 (Synthroid) 25 mcg DAILY@0600 PO 07/06/17 06:00 07/09/17 06:00 (Narcan Inj) 0.4 mg UNSCH PRN IV PUSH 07/05/17 16:45 (Lovenox Inj) 40 mg Q24H SQ 07/06/17 08:00 07/09/17 08:31 (Ultram) 100 mg Q4H PRN PO 07/06/17 09:15 07/08/17 21:19 (NS Flush) 2 ml UNSCH PRN IV FLUSH 07/06/17 17:30 (NS Flush) 2 ml BID IV FLUSH 07/06/17 21:00 07/09/17 08:32 (Lipitor) 10 mg HS PO 07/06/17 21:00 07/08/17 21:19 (Tylenol-Codeine #3) 1 tab Q6H PRN PO 07/08/17 23:00 07/09/17 14:42 (Aspirin Chew) 81 mg DAILY CHEW 07/09/17 09:00 07/09/17 08:31 ([place] 5-325 Mg) 1 tab Q4H PRN PO 07/09/17 14:30 Vital Signs / I&O Vital Signs Date Time Temp Pulse Resp B/P (MAP) Pulse Ox O2 Delivery O2 Flow Rate FiO2 07/09/17 13:37 98 Nasal Cannula 2.00 07/09/17 13:00 77 07/09/17 12:00 68 07/09/17 11:00 69 07/09/17 11:00 98.1 74 18 107/51 (69) 94 07/09/17 10:00 68 07/09/17 09:00 70 07/09/17 08:00 62 07/09/17 07:40 97.6 62 18 126/60 (82) 95 07/09/17 07:40 62 07/09/17 06:29 58 07/09/17 05:51 60 07/09/17 04:08 61 07/09/17 03:43 98.6 74 19 125/61 (82) 96 07/09/17 03:43 64 07/09/17 02:02 67 07/09/17 01:30 67 07/08/17 23:32 98.4 68 21 136/64 (88) 96 07/08/17 23:32 67 07/08/17 22:13 69 07/08/17 21:41 75 07/08/17 20:27 68 07/08/17 19:40 98.6 71 19 128/60 (82) 92 07/08/17 19:40 63 07/08/17 18:00 64 07/08/17 17:00 62 07/08/17 16:00 62 07/08/17 15:00 70 07/08/17 15:00 97.9 77 18 121/56 (77) 94 I/O 07/08/17 07/08/17 07/08/17 07/09/17 07/09/17 07/09/17 06:59 14:59 22:59 06:59 14:59 22:59 Intake Total 480 ml 720 ml 480 ml Output Total 420 ml 500 ml 500 ml Balance 60 ml 220 ml -20 ml Intake Oral 480 ml 720 ml 480 ml Output Urine Total 420 ml 500 ml 500 ml # Voids 4 # Bowel Movements 0 1 1 Physical Exam GENERAL: SKIN: Warm and dry. HEAD: Normocephalic. EYES: No scleral icterus. No injection or drainage. NECK: Supple, trachea midline. No JVD or lymphadenopathy. CARDIOVASCULAR: Regular rate and rhythm without murmurs, gallops, or rubs. RESPIRATORY: Breath sounds equal bilaterally. No accessory muscle use. GASTROINTESTINAL: Abdomen soft, non-tender, nondistended. MUSCULOSKELETAL: No cyanosis, or edema. BACK: Nontender without obvious deformity. No CVA tenderness. Laboratory Laboratory Tests Test 07/09/17 04:34 White Blood Count 7.5 TH/MM3 Red Blood Count 2.71 MIL/MM3 Hemoglobin 8.8 GM/DL Hematocrit 25.8 % Mean Corpuscular Volume 95.1 FL Mean Corpuscular Hemoglobin 32.6 PG Mean Corpuscular Hemoglobin Concent 34.3 % Red Cell Distribution Width 14.0 % Platelet Count 121 TH/MM3 Mean Platelet Volume 8.5 FL Blood Urea Nitrogen 11 MG/DL Creatinine 0.38 MG/DL Random Glucose 91 MG/DL Calcium Level 7.5 MG/DL Sodium Level 130 MEQ/L Potassium Level 3.8 MEQ/L Chloride Level 94 MEQ/L Carbon Dioxide Level 30.1 MEQ/L Anion Gap 6 MEQ/L Estimat Glomerular Filtration Rate 162 ML/MIN Assessment and Plan Problem List: (1) Multiple pelvic fractures ICD Codes: S32.810A - Multiple fractures of pelvis with stable disruption of pelvic ring, initial encounter for closed fracture Status: Acute (2) Atrial fibrillation and flutter ICD Codes: I48.91 - Unspecified atrial fibrillation; I48.92 - Unspecified atrial flutter Status: Acute Assessment and Plan 1.) PAF - in nsr, assymptomatic today, rec coumadin or noac due to CHADSVASC score = 2; patient requests coumadin, will hold for now due unstable hgb and plt count, anemia and thrombocytopenia, continue aspirin 81 mg in the mean time , dc gudelia taverasip, d/w nurse and patient at the bedside, hematology consult due to anemia and thrombocytopenia, d/w nurses and patient at bedside Problem Qualifiers (1) Multiple pelvic fractures: Qualified Codes: S32.82XA - Multiple fractures of pelvis without disruption of pelvic ring, initial encounter for closed fracture Kam Desai MD Jul 09, 2017 14:53
[2017-07-09] MEDS ORDERED: CODEINE SULFATE 15 MG TAB PO PRN (15:15)
--- NOTE | 2017-07-09 15:51 | HHI.FPPN ---
Subjective Remarks Ms East's pain was not well controlled last night requiring addition of Oakton to her pain regimen. After Oakton was administered, she slept well. She was able to work with PT this morning after admin of Tylenol 3; however, this afternoon required four people to move her to the toilet due to pain. She is tolerating PO , voiding and stooling, but is fearful about working with PT again both for fear of falling and fear of the pain. Denies CP, palpitations, SOB, N/V/D and DVT pain. (Andrea Jolly MD R1) Objective Vitals Vital Signs Date Time Temp Pulse Resp B/P (MAP) Pulse Ox O2 Delivery O2 Flow Rate FiO2 07/09/17 15:00 66 07/09/17 15:00 98.8 85 18 122/61 (81) 95 07/09/17 14:00 66 07/09/17 13:37 98 Nasal Cannula 2.00 07/09/17 13:00 77 07/09/17 12:00 68 07/09/17 11:00 69 07/09/17 11:00 98.1 74 18 107/51 (69) 94 07/09/17 10:00 68 07/09/17 09:00 70 07/09/17 08:00 62 07/09/17 07:40 97.6 62 18 126/60 (82) 95 07/09/17 07:40 62 07/09/17 06:29 58 07/09/17 05:51 60 07/09/17 04:08 61 07/09/17 03:43 98.6 74 19 125/61 (82) 96 07/09/17 03:43 64 07/09/17 02:02 67 07/09/17 01:30 67 07/08/17 23:32 98.4 68 21 136/64 (88) 96 07/08/17 23:32 67 07/08/17 22:13 69 07/08/17 21:41 75 07/08/17 20:27 68 07/08/17 19:40 98.6 71 19 128/60 (82) 92 07/08/17 19:40 63 07/08/17 18:00 64 07/08/17 17:00 62 07/08/17 16:00 62 I/O 1/807/08/17 07/08/17 07/09/17 07/09/17 07/09/17 07:00 15:00 23:00 07:00 15:00 23:00 Intake Total 480 ml 720 ml 480 ml Output Total 420 ml 500 ml 500 ml Balance 60 ml 220 ml -20 ml Intake Oral 480 ml 720 ml 480 ml Output Urine Total 420 ml 500 ml 500 ml # Voids 4 # Bowel Movements 0 1 1 (Andrea Jolly MD R1) Result Diagram: 07/09/1743307/09/17433 Objective Remarks GENERAL: Well-nourished, well-developed elderly female patient laying in bed, anxious and in discomfort. SKIN: Warm and dry. No lesions or rashes. HEAD: Normocephalic. Atraumatic. EYES: No scleral icterus. No injection or drainage. EOMI. NECK: Supple, trachea midline. No JVD or lymphadenopathy. CARDIOVASCULAR: Regular rate and rhythm without gallops, or rubs. Soft systolic murmur appreciated. RESPIRATORY: Breath sounds equal bilaterally. No accessory muscle use. GASTROINTESTINAL: Abdomen soft, non-tender, nondistended. EXTREMITIES: No cyanosis, or edema. Left upper leg TTP. NEUROLOGICAL: Awake, alert, and oriented x 3. Non-focal. Medications and IVs Current Medications Medications (Trade) Dose Ordered Sig/Markus Route Start Time Stop Time Status Last Admin (Tylenol) 650 mg Q4H PRN PO 07/05/17 15:45 07/06/17 14:40 (Keke-Colace) 1 tab BID PO 07/05/17 21:00 07/08/17 21:19 (Milk Of Magnesia Liq) 30 ml Q12H PRN PO 07/05/17 15:45 07/08/17 12:22 (Senokot) 17.2 mg Q12H PRN PO 07/05/17 15:45 (Dulcolax Supp) 10 mg DAILY PRN RECTAL 07/05/17 15:45 (Lactulose Liq) 30 ml DAILY PRN PO 07/05/17 15:45 (Vitamin D3) 1,000 units DAILY PO 07/06/17 09:00 07/09/17 08:32 (Synthroid) 25 mcg DAILY@0600 PO 07/06/17 06:00 07/09/17 06:00 (Narcan Inj) 0.4 mg UNSCH PRN IV PUSH 07/05/17 16:45 (Lovenox Inj) 40 mg Q24H SQ 07/06/17 08:00 07/09/17 08:31 (NS Flush) 2 ml UNSCH PRN IV FLUSH 07/06/17 17:30 (NS Flush) 2 ml BID IV FLUSH 07/06/17 21:00 07/09/17 08:32 (Lipitor) 10 mg HS PO 07/06/17 21:00 07/08/17 21:19 (Aspirin Chew) 81 mg DAILY CHEW 07/09/17 09:00 07/09/17 08:31 (Oak[place] 5-325 Mg) 1 tab Q4H PRN PO 07/09/17 14:30 (Codeine Sulfate) 15 mg Q6H PRN PO 07/09/17 15:15 (Andrea Jolly MD R1) A/P Assessment and Plan Mrs. East is a 82yo female with a PMH of hypothyroidism presenting after a hip fracture. She is being admitted to our inpatient service for conservative medical management of her fracture. Seen with Dr Keen and discussed with Dr Mehta Discharge Planning Clearance by Cardiology and await rehab placement (Andrea Jolly MD R1) Attending Attestation Patient seen and examined. Case reviewed and discussed with the resident team. Agree with plan of care as discussed with me and documented in the resident note. her pain regimin has been a little difficult as per nursing she is sedated with tramadol or any narcotic but screams in pain if moved. she also has mild confusion and hallucinations with narcotics (Shayla Mehta MD) Problem List: (1) Atrial fibrillation and flutter ICD Codes: I48.91 - Unspecified atrial fibrillation; I48.92 - Unspecified atrial flutter Status: Acute Plan: [facility] was found to be hypotensive with elevated HR. EKG revealed atrial fibrillation and flutter with RVR. Patient states that she has a hx of abnormal heart rhythm. Now back in sinus rhythm * Cardiology consulted, appreciate recommendations * Started on atorvastatin 10mg po HS * Continue to discuss anticoagulation therapy--pt agreed to restart baby aspirin 07/08 and will consider taking another anticoagulant with concurrence of her daughter. Nursing has spoken with her daughter who agrees with additional anticoagulant; however, working to find what agent she had taken prior to this hospitalization * Amiodarone drip, now in sinus rhythm with HR in 60s--appreciate Cardiology recs for PO dosing and agent(s) * Cardiology discontinued amiodarone drip; continue monitoring tele (2) Acetabular fracture ICD Codes: S32.409A - Unspecified fracture of unspecified acetabulum, initial encounter for closed fracture Status: Acute Plan: Multiple imaging studies on 07/05 showing nondisplaced fracture to the acetabulum of the left hip as well as bilateral pubic rami fractures. Alignment is near anatomic. * Consult orthopedics, patient is known to Dr. Ramirez * recommends conservative treatment * weight-bear as tolerated on bilateral lower extremities. Will need to use a walker for safety. * F/u as outpatient in 2 weeks * Pain management with Tramadol PRN with Morphine for breakthrough * PT and OT are working with pt; goal to get pt to edge of bed or into chair with assistance * PT and OT worked with pt 07/09 and made progress sitting on edge of bed and assisted to chair; will require PT/OT at rehab * Consult case management for rehab placement (3) Multiple pelvic fractures ICD Codes: S32.810A - Multiple fractures of pelvis with stable disruption of pelvic ring, initial encounter for closed fracture Status: Acute Plan: See plan above (4) Elevated CPK ICD Codes: R74.8 - Abnormal levels of other serum enzymes Status: Resolved Plan: CPK at admission was 345. This maybe due to patient lying on the floor all night. CPK now normal as of 07/07. * was given IVF NS @ 100mls/hr, now d/c'd (5) Occipital scalp laceration ICD Codes: S01.01XA - Laceration without foreign body of scalp, initial encounter Status: Resolved Plan: Head CT upon admission is negative for acute process. need to watch for infection as she was on the floor all night * Laceration repaired in ED with cayden * Wound c/d/i and healing; no spotting on pillow now (6) Hypothyroidism ICD Codes: E03.9 - Hypothyroidism, unspecified Status: Chronic Plan: * Continue home levothyroxine (7) Tobacco abuse ICD Codes: Z72.0 - Tobacco use Status: Chronic Plan: Patient smokes half pack per day and has no interest in quitting at this time. * Nicotine patch during her stay (8) FEN Status: Acute Plan: Fluids: tolerating PO Electrolytes: Hyponatremia noted. monitor and replete as needed Nutrition: Heart healthy diet DVT Prophylaxis: ASA 81mg -Hematology consult for assist with Coumadin start in setting of anemia and thrombocytopenia GI Prophylaxis: None indicated at this time Pain Management: Tylenol 650mg q6h for fever/pain 1-2; Codeine sulfate 15mg pain >5; Oak[place] 5-325 breakthrough pain (Andrea Jolly MD R1) Problem Qualifiers (1) Acetabular fracture: Qualified Codes: S32.475A - Nondisplaced fracture of medial wall of left acetabulum, initial encounter for closed fracture (2) Multiple pelvic fractures: Qualified Codes: S32.82XA - Multiple fractures of pelvis without disruption of pelvic ring, initial encounter for closed fracture (3) Occipital scalp laceration: Qualified Codes: S01.01XA - Laceration without foreign body of scalp, initial encounter (4) Hypothyroidism: Qualified Codes: E03.9 - Hypothyroidism, unspecified Andrea Jolly MD R1 Jul 09, 2017 15:51 Shayla Mehta MD Jul 11, 2017 09:54
[2017-07-09] MEDS: ACETAMINOPHEN/HYDROcodone 325 MG/5 MG TAB PO PRN ×2 (17:49→22:48)
--- NOTE | 2017-07-09 18:58 | MB ---
cc: AGUSTÍN CROCKETT M.D. DATE OF CONSULTATION 07/09/[address] Desai REASON FOR CONSULTATION Hematology consulted to render opinion regarding patient with anemia and thrombocytopenia. HISTORY OF PRESENT ILLNESS The patient is a very pleasant 82-year-old female who presented to the hospital after a fall. She tripped over her feet and fell. She sustained multiple pelvic fractures. She was evaluated by orthopedic surgery who recommended conservative treatment. She did not have any surgery. Her hospital course complicated with atrial fibrillation with rapid ventricular rate. She presented with a hemoglobin of 12.9, however over last few days it trended down to 8.8. She denies any melena or hematochezia. She also presented with mild thrombocytopenia and her platelet count has fluctuated over last few days. She denies any history of anemia or low blood count. She only complains of pelvic pain when she moved. She has no chest pressure, palpitations. Denies shortness of breath or cough. Denies any nausea, vomiting, diarrhea or abdominal pain, any dysuria, hematuria. PAST MEDICAL HISTORY 1. Hypothyroidism. 2. Osteoarthritis. 3. Degenerative disc disease. 4. Hearing loss. 5. Vestibular dysfunction. 6. Lumbar stenosis of back. PAST SURGICAL HISTORY 1. Thyroidectomy. 2. Mastoidectomy. 3. Tonsillectomy. FAMILY HISTORY Brother of some sort of cancer. No hematology disorder in her family. SOCIAL HISTORY Smoked half-a-pack a day for 64 years. Quit alcohol. She lives alone. ALLERGIES PENICILLIN AND SULFA. MEDICATIONS Current medications: 1. Aspirin. 2. Lipitor. 3. Vitamin D3. 4. Lovenox. 5. Synthroid. 6. Keke-Colace. REVIEW OF SYSTEMS CONSTITUTIONAL: Generalized weakness. Fatigue. EYES: Negative. EARS, NOSE, AND THROAT: Negative. CARDIOVASCULAR: As above. RESPIRATORY: Denies shortness of breath or cough. GASTROINTESTINAL: No melena or hematochezia. GENITOURINARY: No dysuria or hematuria. MUSCULOSKELETAL: As above. HEMATOLOGY: As above. ENDOCRINE: Negative. DERMATOLOGIC: Negative. PSYCHIATRIC: Negative. NEUROLOGIC: Negative. PHYSICAL EXAMINATION VITAL SIGNS: Temperature 98.8, blood pressure 122/61, O2 saturation 95%. GENERAL: She is alert and oriented times three. She is in pain. HEENT: Atraumatic, normocephalic. Pupils equal, round and reactive to light. Extraocular muscles intact. No scleral icterus. Oropharynx dry mucosa. No lesion. NECK: No thyromegaly. No palpable masses. LYMPHATICS: No palpable cervical, clavicular, axillary or inguinal lymph node. CARDIOVASCULAR: Regular S1-S2. No murmur. LUNGS: Clear to auscultation bilaterally. No wheezing or rhonchi. ABDOMEN: Soft, nontender. I could not palpate liver or spleen. EXTREMITIES: No cyanosis or clubbing or edema. SKIN: No rash or petechiae. NEUROLOGIC: Nonfocal. LABORATORY DATA July 09, 2017 was reviewed. ASSESSMENT 1. Anemia which appears to be new onset. She first presented with a hemoglobin of 12.9. Over the last few days it trended down to 8.8. She had a pelvic CT on July 05, 2017 which did not show any hematoma. Hemoglobin has stabilized. The drop in hemoglobin maybe a transient bone marrow suppression due to her acute illness. We will check a stool occult blood test and anemia workup. If her hemoglobin continues to drop we may have to re-image the pelvis and make sure she is not bleeding. 2. Mild thrombocytopenia. She presented with a platelet count 111,000. It has now trended back up to 121,000. This may be due to consumptive process. Continue to monitor for now. 3. Bilateral pubic ramus fracture. She is being managed conservatively. She still complains of pain. 4. Atrial fibrillation and flutter being managed by cardiology and primary team. The patient was restarted on aspirin. RECOMMENDATIONS 1. Proceed with anemia workup. 2. Check stool occult blood. 3. Monitor CBC and anticipate her blood count to improve. Thank you Dr. Desai for asking me to see this patient. MD DIONE Ulloa/HARIS /6:11 PM /6:26 PM ESTER
[2017-07-09] MEDS: ATORVASTATIN 10 MG TAB PO SCH (20:35)
[2017-07-10] VITALS (17 sets, daily range): BP systolic 103–140; BP diastolic 53–82; PULSE 60–76; RESP 16–19; TEMP 97.5–98.6; O2SAT 93–95
[2017-07-10] MEDS: LEVOTHYROXINE SODIUM 25 MCG TAB PO SCH (04:55)
[2017-07-10] MEDS: ACETAMINOPHEN 325 MG TAB PO PRN (04:56)
[2017-07-10 06:24] LABS: BICARBONATE 29.9 MEQ/L (21.0-32.0); CALCIUM 7.5 MG/DL (8.5-10.1); CREATININE 0.43 MG/DL (0.50-1.00)
[2017-07-10 06:55] LABS: HEMATOCRIT 31.1 % (35.0-46.0); HEMOGLOBIN 10.6 GM/DL (11.6-15.3); MEAN CELL VOLUME 94.1 FL (80.0-100.0); MEAN CORPUSCULAR HEMOGLOBIN 32.1 PG (27.0-34.0); MEAN CORPUSCULAR HGB CONC 34.1 % (32.0-36.0); PLATELET COUNT 137 TH/MM3 (150-450); RED CELL DISTRIBUTION WIDTH 13.6 % (11.6-17.2); WHITE BLOOD COUNT 6.7 TH/MM3 (4.0-11.0)
[2017-07-10] MEDS: ACETAMINOPHEN/HYDROcodone 325 MG/5 MG TAB PO PRN (09:35)
[2017-07-10] MEDS: ENOXAPARIN SODIUM 40 MG/0.4 ML SYRINGE SQ SCH (12:17)
[2017-07-10] MEDS: CHOLECALCIFEROL (VIT D3) 1000 UNIT TAB PO SCH (12:18)
[2017-07-10] MEDS: ASPIRIN 81 MG CHEW TAB CHEW SCH ×2 (12:18→12:20)
[2017-07-10] MEDS: DOCUSATE SODIUM 50 MG/SENNA 8.6 MG TAB PO SCH (12:18)
[2017-07-10] MEDS: SODIUM CHLORIDE 0.9% FLUSH 10 ML FLUSH IV FLUSH SCH (12:19)
--- NOTE | 2017-07-10 13:16 | HHI.FPPN ---
Subjective Remarks Ms East had no acute events overnight. She still complains of pain but is improving mobility in working with PT. She is apprehensive but is amenable to going to rehab. She is taking PO, voiding, stooling, and able to move to chair with assistance. Cardiology, Orthopedics and Hematology have signed off on discharge to SNF. Denies CP, SOB, N/V/D, and DVT pain. (Andrea Jolly MD R1) Objective Vitals Vital Signs Date Time Temp Pulse Resp B/P (MAP) Pulse Ox O2 Delivery O2 Flow Rate FiO2 07/10/17 13:00 76 07/10/17 12:00 70 07/10/17 11:00 72 07/10/17 11:00 97.5 72 17 103/53 (70) 95 07/10/17 10:00 71 07/10/17 09:00 70 07/10/17 08:00 68 07/10/17 07:00 60 07/10/17 07:00 98.2 68 16 140/64 (89) 93 07/10/17 06:00 64 07/10/17 05:20 65 07/10/17 04:41 70 07/10/17 03:00 64 07/10/17 03:00 98.6 67 19 135/82 (99) 93 07/10/17 02:51 68 07/10/17 01:15 66 07/10/17 00:01 61 07/09/17 23:57 98.1 72 18 135/63 (87) 92 07/09/17 23:57 75 07/09/17 23:51 95 Nasal Cannula 3.00 07/09/17 22:30 63 07/09/17 21:50 65 07/09/17 20:50 65 07/09/17 19:50 71 07/09/17 19:50 98.0 76 19 143/63 (89) 92 07/09/17 18:00 73 07/09/17 17:00 68 07/09/17 16:00 80 07/09/17 15:00 66 07/09/17 15:00 98.8 85 18 122/61 (81) 95 07/09/17 14:00 66 07/09/17 13:37 98 Nasal Cannula 2.00 I/O 1/9/18 1/9/18 07/09/17 07/10/17 07/10/17 07/10/17 06:59 14:59 22:59 06:59 14:59 22:59 Intake Total 480 ml 600 ml 350 ml Output Total 500 ml 500 ml 5 ml Balance -20 ml 100 ml 345 ml Intake Oral 480 ml 600 ml 350 ml Output Urine Total 500 ml 500 ml Stool Total 5 ml # Bowel Movements 1 1 0 (Andrea Jolly MD R1) Result Diagram: 07/10/1753807/10/17538 Objective Remarks GENERAL: Well-nourished, well-developed elderly female patient sitting in a bedside chair, anxious but comfortable on 2L NC. SKIN: Warm and dry. No rashes. Large ecchymosis on right posterior neck. HEAD: Normocephalic. Contusion on posterior skull c/d/i and scabbed over, improving. EYES: No scleral icterus. No injection or drainage. EOMI. NECK: Supple, trachea midline. No JVD or lymphadenopathy. Well-healed thyroid scar visible at neck base. CARDIOVASCULAR: Regular rate and rhythm without gallops, or rubs. Soft systolic murmur appreciated. RESPIRATORY: Breath sounds equal bilaterally. No accessory muscle use. GASTROINTESTINAL: Abdomen soft, non-tender, nondistended. Normal BS. No guarding. EXTREMITIES: No cyanosis, or edema. Left upper leg TTP. NEUROLOGICAL: Awake, alert, and oriented x 3. Non-focal. Medications and IVs Current Medications Medications (Trade) Dose Ordered Sig/Markus Route Start Time Stop Time Status Last Admin (Tylenol) 650 mg Q4H PRN PO 07/05/17 15:45 07/10/17 04:56 (Keke-Colace) 1 tab BID PO 07/05/17 21:00 07/10/17 12:18 (Milk Of Magnesia Liq) 30 ml Q12H PRN PO 07/05/17 15:45 07/08/17 12:22 (Senokot) 17.2 mg Q12H PRN PO 07/05/17 15:45 (Dulcolax Supp) 10 mg DAILY PRN RECTAL 07/05/17 15:45 (Lactulose Liq) 30 ml DAILY PRN PO 07/05/17 15:45 (Vitamin D3) 1,000 units DAILY PO 07/06/17 09:00 07/10/17 12:18 (Synthroid) 25 mcg DAILY@0600 PO 07/06/17 06:00 07/10/17 04:55 (Narcan Inj) 0.4 mg UNSCH PRN IV PUSH 07/05/17 16:45 (Lovenox Inj) 40 mg Q24H SQ 07/06/17 08:00 07/10/17 12:17 (NS Flush) 2 ml UNSCH PRN IV FLUSH 07/06/17 17:30 (NS Flush) 2 ml BID IV FLUSH 07/06/17 21:00 07/10/17 12:19 (Lipitor) 10 mg HS PO 07/06/17 21:00 07/09/17 20:35 (Aspirin Chew) 81 mg DAILY CHEW 07/09/17 09:00 07/09/17 08:31 (Mccle[place] 5-325 Mg) 1 tab Q4H PRN PO 07/09/17 14:30 07/10/17 09:35 (Codeine Sulfate) 15 mg Q6H PRN PO 07/09/17 15:15 (Andrea Jolly MD R1) Urinary Catheter: No (Andrea Jolly MD R1) A/P Assessment and Plan Mrs. East is a 82yo female with a PMH of hypothyroidism presenting after a hip fracture. She is being admitted to our inpatient service for conservative medical management of her fracture. Seen with Jane Mehta and Sabra Denton Discharge Planning Likely placement at [place] [facility] rehab today (Andrea Jolly MD R1) Attending Attestation Patient seen and examined. Case reviewed and discussed with the resident team. Agree with plan of care as discussed with me and documented in the resident note. happy she can go to rehab as she was living independently prior to her fall (Shayla Mehta MD) Problem List: (1) Atrial fibrillation and flutter ICD Codes: I48.91 - Unspecified atrial fibrillation; I48.92 - Unspecified atrial flutter Status: Acute Plan: Patient [facility] and was found to be hypotensive with elevated HR. EKG revealed atrial fibrillation and flutter with RVR. Patient states that she has a hx of abnormal heart rhythm. Now back in sinus rhythm * Cardiology consulted, appreciate recommendations * Started on atorvastatin 10mg po HS * Continue to discuss anticoagulation therapy--pt agreed to restart baby aspirin 07/08 and will consider taking another anticoagulant with concurrence of her daughter. Nursing has spoken with her daughter who agrees with additional anticoagulant; however, working to find what agent she had taken prior to this hospitalization * Amiodarone drip, now in sinus rhythm with HR in 60s--appreciate Cardiology recs for PO dosing and agent(s) * Cardiology discontinued amiodarone drip; continue monitoring tele * 07/10: no acute events overnight, no afib or flutter (2) Acetabular fracture ICD Codes: S32.409A - Unspecified fracture of unspecified acetabulum, initial encounter for closed fracture Status: Acute Plan: Multiple imaging studies on 07/05 showing nondisplaced fracture to the acetabulum of the left hip as well as bilateral pubic rami fractures. Alignment is near anatomic. * Consult orthopedics, patient is known to Dr. Ramirez * recommends conservative treatment * weight-bear as tolerated on bilateral lower extremities. Will need to use a walker for safety. * F/u as outpatient in 2 weeks * Pain management with Tramadol PRN with Morphine for breakthrough * PT and OT are working with pt; goal to get pt to edge of bed or into chair with assistance * PT and OT worked with pt 07/09 and made progress sitting on edge of bed and assisted to chair; will require PT/OT at rehab * Consult case management for rehab placement; likely placement at [place] (3) Multiple pelvic fractures ICD Codes: S32.810A - Multiple fractures of pelvis with stable disruption of pelvic ring, initial encounter for closed fracture Status: Acute Plan: See plan above (4) Elevated CPK ICD Codes: R74.8 - Abnormal levels of other serum enzymes Status: Resolved Plan: CPK at admission was 345. This maybe due to patient lying on the floor all night. CPK now normal as of 07/07. * was given IVF NS @ 100mls/hr, now d/c'd (5) Occipital scalp laceration ICD Codes: S01.01XA - Laceration without foreign body of scalp, initial encounter Status: Resolved Plan: Head CT upon admission is negative for acute process. need to watch for infection as she was on the floor all night * Laceration repaired in ED with cayden * Wound c/d/i and healing (6) Normocytic anemia ICD Codes: D64.9 - Anemia, unspecified Status: Acute Plan: Pt with Hgb 12.4 on admit reduced to 8.0 during hospital stay and improved to 10.6 today; heme consulted and believed to be a transient depression 2/2 pelvic fracture -Continue to monitor daily CBC at rehab (7) Thrombocytopenia ICD Codes: D69.6 - Thrombocytopenia Status: Acute Plan: Pt platelets at 111 on admit, then reduced to 89 before rebounding to 121 today; heme consulted and believed to be due to plt consumption as a result of pelvic fracture -Continue to monitor with daily CBC in rehab as above (8) Hypothyroidism ICD Codes: E03.9 - Hypothyroidism, unspecified Status: Chronic Plan: * Continue home levothyroxine (9) Tobacco abuse ICD Codes: Z72.0 - Tobacco use Status: Chronic Plan: Patient smokes half pack per day and has no interest in quitting at this time. * Nicotine patch during her stay (10) FEN Status: Acute Plan: Fluids: tolerating PO Electrolytes: Hyponatremia noted. monitor and replete as needed Nutrition: Heart healthy diet DVT Prophylaxis: ASA 81mg; Lovenox 40mg subcu daily GI Prophylaxis: None indicated at this time Pain Management: Tylenol 650mg q6h for fever/pain 1-2; Codeine sulfate 15mg pain >5; Mccleary 5-325 breakthrough pain (Andrea Jolly MD R1) Problem Qualifiers (1) Acetabular fracture: Qualified Codes: S32.475A - Nondisplaced fracture of medial wall of left acetabulum, initial encounter for closed fracture (2) Multiple pelvic fractures: Qualified Codes: S32.82XA - Multiple fractures of pelvis without disruption of pelvic ring, initial encounter for closed fracture (3) Occipital scalp laceration: Qualified Codes: S01.01XA - Laceration without foreign body of scalp, initial encounter (4) Hypothyroidism: Qualified Codes: E03.9 - Hypothyroidism, unspecified Andrea Jolly MD R1 Jul 10, 2017 13:16 Shayla Mehta MD Jul 11, 2017 09:55
--- NOTE | 2017-07-10 13:30 | PD.ONC.PN ---
Subjective Subjective Remarks Afebrile overnight. Patient resting in room. Stating she still has pain in her hips, and has a chronic pain in her shoulder. Denies obvious bleeding. Objective Data Date Time Temp Pulse Resp B/P (MAP) Pulse Ox O2 Delivery O2 Flow Rate FiO2 07/10/17 13:00 76 07/10/17 12:00 70 07/10/17 11:00 72 07/10/17 11:00 97.5 72 17 103/53 (70) 95 07/10/17 10:00 71 07/10/17 09:00 70 07/10/17 08:00 68 07/10/17 07:00 60 07/10/17 07:00 98.2 68 16 140/64 (89) 93 07/10/17 06:00 64 07/10/17 05:20 65 07/10/17 04:41 70 07/10/17 03:00 64 07/10/17 03:00 98.6 67 19 135/82 (99) 93 07/10/17 02:51 68 07/10/17 01:15 66 07/10/17 00:01 61 07/09/17 23:57 98.1 72 18 135/63 (87) 92 07/09/17 23:57 75 07/09/17 23:51 95 Nasal Cannula 3.00 07/09/17 22:30 63 07/09/17 21:50 65 07/09/17 20:50 65 07/09/17 19:50 71 07/09/17 19:50 98.0 76 19 143/63 (89) 92 07/09/17 18:00 73 07/09/17 17:00 68 07/09/17 16:00 80 07/09/17 15:00 66 07/09/17 15:00 98.8 85 18 122/61 (81) 95 07/09/17 14:00 66 07/09/17 13:37 98 Nasal Cannula 2.00 07/10/17 07/10/17 07/10/17 07:00 15:00 23:00 Intake Total 350 ml Output Total 5 ml Balance 345 ml Result Diagram: 07/10/17 0539 07/10/17 0539 Laboratory Results Laboratory Tests Test 07/10/17 05:39 White Blood Count 6.7 TH/MM3 Red Blood Count 3.30 MIL/MM3 Hemoglobin 10.6 GM/DL Hematocrit 31.1 % Mean Corpuscular Volume 94.1 FL Mean Corpuscular Hemoglobin 32.1 PG Mean Corpuscular Hemoglobin Concent 34.1 % Red Cell Distribution Width 13.6 % Platelet Count 137 TH/MM3 Mean Platelet Volume 9.0 FL Hematology Comments Blood Urea Nitrogen 8 MG/DL Creatinine 0.43 MG/DL Random Glucose 95 MG/DL Calcium Level 7.5 MG/DL Sodium Level 131 MEQ/L Potassium Level 3.7 MEQ/L Chloride Level 93 MEQ/L Carbon Dioxide Level 29.9 MEQ/L Anion Gap 8 MEQ/L Estimat Glomerular Filtration Rate 140 ML/MIN Culture Results Microbiology Date/Time Source Procedure Growth Status 07/10/17 08:40 Stool Stool Stool Occult Blood (NATHALY) Pending Received Administered Medications Medications (Trade) Dose Ordered Sig/Markus Route PRN Reason Start Time Stop Time Status Last Admin Dose Admin Acetaminophen (Tylenol) 650 mg Q4H PRN PO TEMP > 100.4, Pain 1-2 07/05/17 15:45 07/10/17 04:56 Senna/Docusate Sodium (Keke-Colace) 1 tab BID PO 07/05/17 21:00 07/10/17 12:18 Magnesium Hydroxide (Milk Of Magnesia Liq) 30 ml Q12H PRN PO Mild constipation 07/05/17 15:45 07/08/17 12:22 Cholecalciferol (Vitamin D3) 1,000 units DAILY PO 07/06/17 09:00 07/10/17 12:18 Levothyroxine Sodium (Synthroid) 25 mcg DAILY@0600 PO 07/06/17 06:00 07/10/17 04:55 Enoxaparin Sodium (Lovenox Inj) 40 mg Q24H SQ 07/06/17 08:00 07/10/17 12:17 Sodium Chloride (NS Flush) 2 ml BID IV FLUSH 07/06/17 21:00 07/10/17 12:19 Atorvastatin Calcium (Lipitor) 10 mg HS PO 07/06/17 21:00 07/09/17 20:35 Aspirin (Aspirin Chew) 81 mg DAILY CHEW 07/09/17 09:00 07/09/17 08:31 Acetaminophen/ Hydrocodone Bitart ([place] 5-325 Mg) 1 tab Q4H PRN PO BREAKTHROUGH PAIN 07/09/17 14:30 07/10/17 09:35 Objective Remarks GENERAL: Elderly female, sitting up in chair next to bed in [facility]. SKIN: Warm and dry. a few old bruises noted on left arm. HEAD: Normocephalic. EYES: No injection or drainage. NECK: Supple, trachea midline. CARDIOVASCULAR: Regular rate and rhythm RESPIRATORY: Breath sounds equal bilaterally. No accessory muscle use. GASTROINTESTINAL: Abdomen soft, non-tender, nondistended. MUSCULOSKELETAL: No cyanosis NEURO: awake and alert, normal speech. Assessment/Plan Problem List: (1) Normocytic anemia ICD Codes: D64.9 - Anemia, unspecified Plan: --appears to be new onset. --first presented with a hemoglobin of 12.9. then trended down to 8.8. --s/p pelvic CT on 07/05/17--> does not show any hematoma. --Hemoglobin has stabilized. drop in hemoglobin may be a transient bone marrow suppression due to her acute illness. --stool occult blood test is pending. --if hemoglobin continues to drop we may have to re-image the pelvis and make sure she is not bleeding. (2) Thrombocytopenia ICD Codes: D69.6 - Thrombocytopenia, unspecified Plan: -- may be due to consumptive process. Continue to monitor for now. (3) Multiple pelvic fractures ICD Codes: S32.810A - Multiple fractures of pelvis with stable disruption of pelvic ring, initial encounter for closed fracture Status: Acute Plan: --Bilateral pubic ramus fracture. --being managed conservatively. --going to rehab today. (4) Atrial fibrillation and flutter ICD Codes: I48.91 - Unspecified atrial fibrillation; I48.92 - Unspecified atrial flutter Status: Acute Plan: --cardiology managing. --ok to start coumadin, she has no evidence of active bleeding. --currently on Lovenox 40 and ASA Assessment 82y/o female admitted after fall. Hematology consulted for anemia and thrombocytopenia. h/o Hypothyroidism. Osteoarthritis. Degenerative disc disease. Hearing loss. vestibular dysfunction. Lumbar stenosis of back Plan 1. clear for discharge to rehab 2. ok to start coumadin as long as no evidence of active bleeding. recommend monitoring CBC closely at [facility]. Attending Statement The exam, history, and the medical decision-making described in the above note were completed with the assistance of the mid-level provider. I reviewed and agree with the findings presented. I attest that I had a [id number] encounter with the patient on the same day, and personally performed and documented my assessment and findings in the medical record. Still has hip pain. No obvious bleeding. Hgb trended up to 10.6. Platelet also trended up. No clear contraindication for anticoagulation. Recommend continue to monitor CBC. Problem Qualifiers (1) Multiple pelvic fractures: Qualified Codes: S32.82XA - Multiple fractures of pelvis without disruption of pelvic ring, initial encounter for closed fracture Qing Acuna Jul 10, 2017 13:30 James Noel MD Jul 10, 2017 16:07
[2017-07-10] MEDS ORDERED: ASPI81 CHEW (14:38)
[2017-07-10] MEDS ORDERED: LIPI10TA PO (14:38)
[2017-07-10] MEDS ORDERED: ENOX40P SQ (14:38)
[2017-07-10] MEDS ORDERED: COUM5TAB PO (14:46)
[2017-07-10] MEDS ORDERED: SENN187 PO (14:46)
[2017-07-10] MEDS ORDERED: HYDR-3516 PO (14:46)
[2017-07-10] MEDS ORDERED: PERI PO (14:46)
[2017-07-10] MEDS ORDERED: BISA10R RECTAL (14:46)
[2017-07-10] MEDS ORDERED: ACET325T15 PO (14:46)
[2017-07-10] MEDS ORDERED: MAGN30S PO (14:46)
--- NOTE | 2017-07-10 14:48 | HHI.DCPOC ---
Discharge Care Plan Goals to Promote Your Health * To prevent worsening of your condition and complications, please take your medications as prescribed and please work with PT and OT to ensure your regain your strength and mobility. * To maintain your health at the optimal level, please follow up with your doctor after discharging from rehab within 1 week. Directions to Meet Your Goals Take your medications as prescribed Follow your dietary instruction Follow activity as directed Keep your appointments as scheduled Take your immunizations and boosters as scheduled If your symptoms worsen call your PCP, if no PCP go to Urgent Care Center or Emergency Room Smoking is Dangerous to Your Health. Avoid second hand smoke Call the 24-hour hour crisis hotline for domestic abuse at Andrea Jolly MD R1 Jul 10, 2017 14:48
--- NOTE | 2017-07-10 15:30 | PD.CARD.PN ---
Subjective Subjective Remarks alert in nad Objective Medications Current Medications Medications (Trade) Dose Ordered Sig/Markus Route Start Time Stop Time Status Last Admin (Tylenol) 650 mg Q4H PRN PO 07/05/17 15:45 07/10/17 04:56 (Keke-Colace) 1 tab BID PO 07/05/17 21:00 07/10/17 12:18 (Milk Of Magnesia Liq) 30 ml Q12H PRN PO 07/05/17 15:45 07/08/17 12:22 (Senokot) 17.2 mg Q12H PRN PO 07/05/17 15:45 (Dulcolax Supp) 10 mg DAILY PRN RECTAL 07/05/17 15:45 (Lactulose Liq) 30 ml DAILY PRN PO 07/05/17 15:45 (Vitamin D3) 1,000 units DAILY PO 07/06/17 09:00 07/10/17 12:18 (Synthroid) 25 mcg DAILY@0600 PO 07/06/17 06:00 07/10/17 04:55 (Narcan Inj) 0.4 mg UNSCH PRN IV PUSH 07/05/17 16:45 (Lovenox Inj) 40 mg Q24H SQ 07/06/17 08:00 07/10/17 12:17 (NS Flush) 2 ml UNSCH PRN IV FLUSH 07/06/17 17:30 (NS Flush) 2 ml BID IV FLUSH 07/06/17 21:00 07/10/17 12:19 (Lipitor) 10 mg HS PO 07/06/17 21:00 07/09/17 20:35 (Aspirin Chew) 81 mg DAILY CHEW 07/09/17 09:00 07/09/17 08:31 ([place] 5-325 Mg) 1 tab Q4H PRN PO 07/09/17 14:30 07/10/17 09:35 (Codeine Sulfate) 15 mg Q6H PRN PO 07/09/17 15:15 Vital Signs / I&O Vital Signs Date Time Temp Pulse Resp B/P (MAP) Pulse Ox O2 Delivery O2 Flow Rate FiO2 07/10/17 15:00 68 07/10/17 14:00 70 07/10/17 13:00 76 07/10/17 12:27 94 Nasal Cannula 2.00 07/10/17 12:00 70 07/10/17 11:00 72 07/10/17 11:00 97.5 72 17 103/53 (70) 95 07/10/17 10:00 71 07/10/17 09:00 70 07/10/17 08:00 68 07/10/17 07:00 60 07/10/17 07:00 98.2 68 16 140/64 (89) 93 07/10/17 06:00 64 07/10/17 05:20 65 07/10/17 04:41 70 07/10/17 03:00 64 07/10/17 03:00 98.6 67 19 135/82 (99) 93 07/10/17 02:51 68 07/10/17 01:15 66 07/10/17 00:01 61 07/09/17 23:57 98.1 72 18 135/63 (87) 92 07/09/17 23:57 75 07/09/17 23:51 95 Nasal Cannula 3.00 07/09/17 22:30 63 07/09/17 21:50 65 07/09/17 20:50 65 07/09/17 19:50 71 07/09/17 19:50 98.0 76 19 143/63 (89) 92 07/09/17 18:00 73 07/09/17 17:00 68 07/09/17 16:00 80 I/O 07/09/17 07/09/17 07/09/17 07/10/17 07/10/17 07/10/17 07:00 15:00 23:00 07:00 15:00 23:00 Intake Total 480 ml 600 ml 350 ml Output Total 500 ml 500 ml 5 ml Balance -20 ml 100 ml 345 ml Intake Oral 480 ml 600 ml 350 ml Output Urine Total 500 ml 500 ml Stool Total 5 ml # Bowel Movements 1 1 0 Physical Exam GENERAL: SKIN: Warm and dry. HEAD: Normocephalic. EYES: No scleral icterus. No injection or drainage. NECK: Supple, trachea midline. No JVD or lymphadenopathy. CARDIOVASCULAR: Regular rate and rhythm without murmurs, gallops, or rubs. RESPIRATORY: Breath sounds equal bilaterally. No accessory muscle use. GASTROINTESTINAL: Abdomen soft, non-tender, nondistended. MUSCULOSKELETAL: No cyanosis, or edema. BACK: Nontender without obvious deformity. No CVA tenderness. Laboratory Laboratory Tests Test 07/10/17 05:39 White Blood Count 6.7 TH/MM3 Red Blood Count 3.30 MIL/MM3 Hemoglobin 10.6 GM/DL Hematocrit 31.1 % Mean Corpuscular Volume 94.1 FL Mean Corpuscular Hemoglobin 32.1 PG Mean Corpuscular Hemoglobin Concent 34.1 % Red Cell Distribution Width 13.6 % Platelet Count 137 TH/MM3 Mean Platelet Volume 9.0 FL Hematology Comments Blood Urea Nitrogen 8 MG/DL Creatinine 0.43 MG/DL Random Glucose 95 MG/DL Calcium Level 7.5 MG/DL Sodium Level 131 MEQ/L Potassium Level 3.7 MEQ/L Chloride Level 93 MEQ/L Carbon Dioxide Level 29.9 MEQ/L Anion Gap 8 MEQ/L Estimat Glomerular Filtration Rate 140 ML/MIN Assessment and Plan Problem List: (1) Multiple pelvic fractures ICD Codes: S32.810A - Multiple fractures of pelvis with stable disruption of pelvic ring, initial encounter for closed fracture Status: Acute (2) Atrial fibrillation and flutter ICD Codes: I48.91 - Unspecified atrial fibrillation; I48.92 - Unspecified atrial flutter Status: Acute Assessment and Plan 1.) PAF - in nsr, assymptomatic today, rec coumadin or noac due to CHADSVASC score = 2; patient requests coumadin, anemic but hgb stable, cleared by Dr Gilman to start coumadin, plan lovenox bridge and ok from cv standpoint to transfer to [place], f/u cbc x 5 days to r/o decreasing hgb, f/u with me in office after rehab, d/w patient and nurse Problem Qualifiers (1) Multiple pelvic fractures: Qualified Codes: S32.82XA - Multiple fractures of pelvis without disruption of pelvic ring, initial encounter for closed fracture Kam Desai MD Jul 10, 2017 15:30
[2017-07-10 15:48] LABS: RETIC # 102.2 MIL/L (20.0-150.0); RETIC % 3.5 % (0.4-3.0)
[2017-07-10 16:17] LABS: C-REACTIVE PROTEIN 4.26 MG/DL (0.00-0.30); IRON (FE) 30 MCG/DL (50-170)
[2017-07-10 16:43] LABS: % SATURATION IRON PROFILE 14.1 % (20-50); FERRITIN 349 NG/ML (8-252); FOLATE 19.3 NG/ML (3.1-17.5); LDH SERUM 283 U/L (84-246); TOTAL IRON BINDING CAPACITY 213 MCG/DL (250-450)
--- NOTE | 2017-07-11 21:20 | HHI.DS ---
Discharge Summary Admission Date Jul 05, 2017 at 15:07 Discharge Date: Jul 10, 2017 Admitting Diagnosis pubic rami fracture, acetabular fracture (1) Acetabular fracture Diagnosis: Principal ICD Codes: S32.409A - Unspecified fracture of unspecified acetabulum, initial encounter for closed fracture (2) Pubic ramus fracture Diagnosis: Principal ICD Codes: S32.599A - Other specified fracture of unspecified pubis, initial encounter for closed fracture (3) Atrial fibrillation and flutter Diagnosis: Secondary ICD Codes: I48.91 - Unspecified atrial fibrillation; I48.92 - Unspecified atrial flutter Status: Acute (4) Hypothyroidism Diagnosis: Secondary ICD Codes: E03.9 - Hypothyroidism, unspecified Status: Chronic (5) Thrombocytopenia Diagnosis: Secondary ICD Codes: D69.6 - Thrombocytopenia Status: Acute Procedures Echocardiogram 07/07/17: CONCLUSIONS The left ventricular systolic function is normal with an estimated ejection fraction in the range of 60-65%. Normal left ventricular size. Wall thickness is normal. No regional wall motion abnormalities are present. Severe thickening of the mitral valve leaflets. Calcification of both mitral valve leaflets. Severe mitral annular calcification. Mild mitral valve regurgitation. Severe thickening of the aortic valve leaflets. Mild aortic valve regurgitation. Severe aortic valve stenosis. Aortic valve area is 0.47 cm. There is moderate to severe tricuspid valve regurgitation. There is estimated severe pulmonary hypertension present ( > 70 mmHg). Mild pulmonary valve regurgitation. The inferior vena cava is dilated. There is a small pericardial effusion present. Brief History Mrs. East is a 82-year-old white female with past medical history of hypothyroidism who presented to the ED after fall. She states that she decided to go to bed early. She went into her computer room and left her phone on the kitchen table in the next room. She states that she tripped over her feet and fell on her back then hit her head. She states that she saw some stars, but did not lose consciousness. No seizure activity. No loss of bowels or bladder. She states that she lay there all night because she could not get to the phone. Her friend found her in the morning around 10 AM. This is her first fall. She usually uses a wheeled walker at home. She uses a wheelchair outside the home. She lives alone. She states that she has pain in her lower spine at her tailbone whenever she tries to move her legs. She states that her hips and legs hurt as well. The pain medicine in the ED helped. No chest pain, no shortness of breath, no abdominal pain. She was admitted for pain control and had some visual hallucinations on narcotic medicine. She is not able to move spontaneously in bed nor sit up at this point. Ortho saw her and she is not a surgical candidate. CBC/BMP: 07/10/17 0539 07/10/17 0539 Significant Findings Laboratory Tests Test 07/09/17 04:34 07/10/17 05:39 07/10/17 15:04 Red Blood Count 2.71 MIL/MM3 (4.00-5.30) 3.30 MIL/MM3 (4.00-5.30) Hemoglobin 8.8 GM/DL (11.6-15.3) 10.6 GM/DL (11.6-15.3) Hematocrit 25.8 % (35.0-46.0) 31.1 % (35.0-46.0) Platelet Count 121 TH/MM3 (150-450) 137 TH/MM3 (150-450) Creatinine 0.38 MG/DL (0.50-1.00) 0.43 MG/DL (0.50-1.00) Calcium Level 7.5 MG/DL (8.5-10.1) 7.5 MG/DL (8.5-10.1) Sodium Level 130 MEQ/L (136-145) 131 MEQ/L (136-145) Chloride Level 94 MEQ/L (98-107) 93 MEQ/L (98-107) Reticulocyte Count 3.5 % (0.4-3.0) Iron Level 30 MCG/DL (50-170) Total Iron Binding Capacity 213 MCG/DL (250-450) Percent Iron Saturation 14.1 % (20-50) Ferritin 349 NG/ML (8-252) Lactate Dehydrogenase 283 U/L (84-246) C-Reactive Protein 4.26 MG/DL (0.00-0.30) Folate 19.3 NG/ML (3.1-17.5) Imaging Last Impressions Chest X-Ray 07/06/17 0000 Signed Impressions: Service Date/Time: Thursday, July 06, 2017 09:25 - CONCLUSION: Bibasilar scarring. No acute focal pulmonary infiltrate or pulmonary vascular congestion. Degenerative changes and scoliosis of the thoracic spine. Mitch Evans MD Shoulder X-Ray 07/05/17 Signed Impressions: Service Date/Time: Wednesday, July 05, 2017 12:28 - CONCLUSION: Degenerative changes, negative for fracture. Costa Timmons MD FACR Sacrum and Coccyx X-Ray 07/05/17 Signed Impressions: Service Date/Time: Wednesday, July 05, 2017 12:32 - CONCLUSION: 1. Multiple pelvic fractures as above. CT scan is recommended for further evaluation if clinically indicated. Douglas Aviles MD Pelvis X-Ray 07/05/17 Signed Impressions: Service Date/Time: Wednesday, July 05, 2017 12:40 - CONCLUSION: Fractures as described above. CT scan could be used to further evaluate the pelvic fracture. Costa Timmons MD FACR Pelvis CT 07/05/17 Signed Impressions: Service Date/Time: Wednesday, July 05, 2017 13:49 - CONCLUSION: Fracture medial wall of acetabulum as well as bilateral pubic rami fracture. Alignment is near-anatomic.. Costa Timmons MD FACR Lumbar Spine X-Ray 07/05/17 Signed Impressions: Service Date/Time: Wednesday, July 05, 2017 12:31 - CONCLUSION: Extensive degenerative changes lumbar spine. Minimal loss vertebral body height L2 and L3. Age-indeterminate. MRI could be used to exclude an acute compression. Costa Timmons MD FACR Lumbar Spine CT 07/05/17 Signed Impressions: Service Date/Time: Wednesday, July 05, 2017 13:42 - CONCLUSION: 1. No definite acute compression fracture identified. 2. Severe degenerative changes of the lumbar spine with spinal stenosis most notably at L3/4 and L4/5. The individual levels are dictated in detail above. Channing Timmons MD Head CT 07/05/17 Signed Impressions: Service Date/Time: Wednesday, July 05, 2017 13:38 - CONCLUSION: Negative for acute process. Costa Timmons MD FACR Cervical Spine CT 07/05/17 Signed Impressions: Service Date/Time: Wednesday, July 05, 2017 13:36 - CONCLUSION: 1. No acute fracture the cervical spine identified. 2. Advanced degenerative changes as above. 3. Advanced atherosclerotic plaquing in the carotid bifurcations. Channing Timmons MD PE at Discharge GENERAL: Well-nourished, well-developed elderly female patient sitting in a bedside chair, anxious but comfortable on 2L NC. SKIN: Warm and dry. No rashes. Large ecchymosis on right posterior neck. HEAD: Normocephalic. Contusion on posterior skull c/d/i and scabbed over, improving. EYES: No scleral icterus. No injection or drainage. EOMI. NECK: Supple, trachea midline. No JVD or lymphadenopathy. Well-healed thyroid scar visible at neck base. CARDIOVASCULAR: Regular rate and rhythm without gallops, or rubs. Soft systolic murmur appreciated. RESPIRATORY: Breath sounds equal bilaterally. No accessory muscle use. GASTROINTESTINAL: Abdomen soft, non-tender, nondistended. Normal BS. No guarding. EXTREMITIES: No cyanosis, or edema. Left upper leg TTP. NEUROLOGICAL: Awake, alert, and oriented x 3. Non-focal. Hospital Course Pt was admitted on 07/05/17 after a fall and imaging showed bilateral pelvic rami fractures and acetabular fracture that were in near anatomic alignment. Orthopedics consult with Dr Mccoy revealed that the pt would most benefit from conservative treatment and would not be a good surgery candidate. EKG on 07/06 revealed atrial fibrillation with rapid ventricular response; prominent lateral precordial voltage, and diffuse nonspecific ST-T change. Cardiology was consulted and she was started on a Diltiazem bolus and amiodarone until her rate was controlled and converted to nsr on 07/07/17. This arrhythmia was considered her first onset of paroxysmal afib and amiodarone was discontinued on 07/07 as it was thought the onset was due to poor pain control rather than a new functional or electric cardiac change. Head CT was negative for bleeding or acute trauma although the pt had a sizable contusion on her occiput from the fall. Cervical and lumbar spine imaging also show degenerative bone changes, especially in the lumbar portion; however, there were no acute fractures evident. No anticoagulation was started as the pt had low platelets and anemia. Hematology was consulted who believe the thrombocytopenia and anemia were a transient dip due to the multiple pelvic fractures. By discharge her blood work was improving with platelets at 137 from a low of 89 and Hgb 10.6 after a low of 8.8. We worked hard to ensure the pt's pain was controlled, but she easily became disoriented on opioids and Tramadol did not sufficiently decrease her pain. We finally settled on Tylenol 3 for pain 1-5, Tramadol pain 6-10 and [place] 5-325 for breakthrough. By discharge she was stable and ready to go to rehab although was anxious and apprehensive about the pain she would go through. Pt Condition on Discharge: Stable Discharge Disposition: Rehab Inpatient Discharge Instructions DIET: Follow Instructions for: Heart Healthy Diet Speech Therapy-Diet Recommenda: Regular Activities you can perform: Weight Bearing as [place] Activities to avoid: Prolonged Standing, Strenuous Activity Follow up Referrals: Cardiology - 1 Week Orthopedics - 2 Weeks PCP Follow-up - 1 Week New Orders: CBC WITH DIFF - Daily New Medications: Warfarin (Coumadin) 5 Mg Tab 5 MG PO DAILY for Blood Clot Prevention, #30 TAB 0 Refills Acetaminophen (Eq Acetaminophen) 325 Mg Tab 650 MG PO Q4H PRN for TEMPERATURE > 100.5 F, #1 TAB Aspirin (Tgt Aspirin) 81 Mg Chw 81 MG CHEW DAILY, #1 EA Atorvastatin (Lipitor) 10 Mg Tab 10 MG PO HS, #1 TAB Enoxaparin Inj (Lovenox Inj) 40 Mg/0.4 Ml Syr 40 MG SQ Q24H for 5 Days, #1 INJECTION Hydrocodone/Acetaminophen (Hydrocodone-Acetamin 5-325 mg) 5 Mg-325 Mg Tablet 1 TAB PO Q4H PRN for PAIN SCALE 6 TO 10, #1 TAB Continued Medications: Acetaminophen-Codeine (Tylenol-Codeine #3) 300-30 mg Tab 1-2 TAB PO Q6H PRN for PAIN SCALE 1 TO 5, TAB 0 Refills Cholecalciferol (Vitamin D-1000) 1,000 Unit Tab 1000 UNITS PO DAILY for Nutritional Supplement, #1 BOTTLE 0 Refills Levothyroxine (Levothyroxine) 25 Mcg Tab 25 MCG PO DAILY for Thyroid, #30 TAB 0 Refills Multiple Vitamins W/ Minerals (Multi For Her 50+) 0.4 Mg-250 Mcg Tab Andrea Jolly MD R1 Jul 11, 2017 21:20
[2017-07-15 19:52] LABS: ERYTHROPOIETIN 23.4 mIU/mL (2.6-18.5)
== END 2017-07-10 16:24 | DRG 535 ==
LOC: NEPE 11:38 → NEDA 15:07 → N06B 17:56 → HCPC 07-06 18:30
PROVIDERS: ADMIT Family Medicine; ATTEND Family Medicine
PROC: 0HQ0XZZ Repair Scalp Skin, External Approach (ICD-10-PCS; principal; 2017-07-05)
DX: S32.512A Fracture of superior rim of left pubis, initial encounter for closed fracture (principal); S32.402A Unspecified fracture of left acetabulum, initial encounter for closed fracture; D69.6 Thrombocytopenia, unspecified; I27.20 Pulmonary hypertension, unspecified; I31.3 Pericardial effusion (noninflammatory); I95.9 Hypotension, unspecified; I48.92 Unspecified atrial flutter; E87.1 Hypo-osmolality and hyponatremia; R71.0 Precipitous drop in hematocrit; S32.511A Fracture of superior rim of right pubis, initial encounter for closed fracture; I48.0 Paroxysmal atrial fibrillation; I48.91 Unspecified atrial fibrillation; I65.29 Occlusion and stenosis of unspecified carotid artery; S01.01XA Laceration without foreign body of scalp, initial encounter; S40.011A Contusion of right shoulder, initial encounter; S81.812A Laceration without foreign body, left lower leg, initial encounter; R74.8 Abnormal levels of other serum enzymes; I08.3 Combined rheumatic disorders of mitral, aortic and tricuspid valves; R44.1 Visual hallucinations; E03.9 Hypothyroidism, unspecified; E86.0 Dehydration; M81.0 Age-related osteoporosis without current pathological fracture; M19.90 Unspecified osteoarthritis, unspecified site; M48.061 Spinal stenosis, lumbar region without neurogenic claudication; T40.4X5A Adverse effect of other synthetic narcotics, initial encounter; T40.2X5A Adverse effect of other opioids, initial encounter; H91.90 Unspecified hearing loss, unspecified ear; F17.210 Nicotine dependence, cigarettes, uncomplicated; W01.0XXA Fall on same level from slipping, tripping and stumbling without subsequent striking against object, initial encounter; Y92.038 Other place in apartment as the place of occurrence of the external cause; Y92.238 Other place in hospital as the place of occurrence of the external cause; Z66 Do not resuscitate; Z88.0 Allergy status to penicillin; Z88.2 Allergy status to sulfonamides
CPT/HCPCS: 12002; 70450; 71045; 72100; 72125; 72131; 72170; 72192; 72220; 73030; 80048; 80053; 80061; 82272; 82550; 82552; 82607; 82668; 82728; 82746; 82747; 83010; 83540; 83550; 83615; 84155; 84443; 84484; 85025; 85027; 85044; 85610; 85730; 86140; 93005; 93306; 94150; J0282; J1160; J1650; J7030; J7040; J7050

== ENCOUNTER 2018-01-06 11:55 | Inpatient (IN) ==
--- NOTE | 2018-01-06 12:54 | ED ---
HPI General Chief Complaint: Fall Stated Complaint: Medical/EVAC Time Seen by Provider: 01/06/18 12:09 Source: patient, family and EMS Mode of arrival: EMS Limitations: altered mental status History of Present Illness HPI Narrative: 82-year-old female that presents to the ED for evaluation of fall. Patient reports that she lives alone in her house. She is not a good historian she does not really know her medical history but apparently per the history was able to obtain from EMS and family apparently patient currently takes Coumadin has a history of significant heart disease. She had stents placed recently. She apparently had been in rehab and currently now lives on her home. She cannot really tell me she lives alone but it seems like she does. Apparently the neighbors check on her almost frequently as she continues to have multiple falls. Apparently the neighbors checked on her today she was found on the floor and they called the ambulance for evaluation. Patient has multiple bruises in her body and she herself cannot really tell me where she hurts. She is somewhat hard of hearing so is hard to get a history from her but she does appear to be slightly altered. The main complaint that per ambulance she complained of was lower back pain. She does to me complain of pain to her left ankle but states that it doesn't bother her anymore. cannot tell me a number for the pain. Again history is limited. complaint: fall Related Data Home Medications Medication Instructions Recorded Confirmed diazepam 5 mg PO Q6HR PRN 01/06/18 01/06/18 fluticasone-vilanterol [Breo 1 inh INHALATION DAILY 01/06/18 01/06/18 Ellipta] guaifenesin 600 mg PO Q12H 01/06/18 01/06/18 levothyroxine 25 mcg PO DAILY 01/06/18 01/06/18 warfarin [Coumadin] 3 mg PO DAILY 01/06/18 01/06/18 Allergies Allergy/AdvReac Type Severity Reaction Status Date / Time Penicillins Allergy Intermediate Rash Verified 01/06/18 16:03 Sulfa (Sulfonamide Allergy Intermediate Rash Verified 01/06/18 16:03 Antibiotics) aspirin AdvReac Abdominal Verified 01/06/18 16:04 Pain Review of Systems ROS Unobtainable All other systems reviewed negative except as stated in HPI [facility] Medical History Medical History Atrial fibrillation (Acute) COPD (chronic obstructive pulmonary disease) (Acute) Congestive heart failure (CHF) (Acute) Hypertension (Acute) Social History Social History Substance History: No History of Abuse Second Hand Smoke Exposure: Yes Smoking Status: Current every day smoker Tobacco Type: Cigarettes How Often Do You Have a Drink Containing Alcohol: Never Recent Travel in [facility] within the Last 8 Weeks: No Recent Out of Country Travel within the Last 8 Weeks: No Immunization History Tetanus Immunization: Unsure Hx Influenza Vaccine This Season: No Exam Narrative Exam Narrative: GENERAL: Anorexic SKIN: Focused skin assessment warm/dry. Patient has multiple bruises in different areas of the body. More noticeable on the right shoulder, left knee, right foot, lower back as well as some of the abdomen and chest. Some of them appear to be old and some of them appear to be new. HEAD: Atraumatic. Normocephalic. EYES: Pupils equal and round 4 mm reactive to light and accommodation.. No scleral icterus. No injection or drainage. ENT: No nasal bleeding or discharge. Mucous membranes pink and moist. NECK: Trachea midline. No JVD. CARDIOVASCULAR: Regular rate and rhythm. No murmur appreciated. RESPIRATORY: No accessory muscle use. Clear to auscultation. Breath sounds equal bilaterally. GASTROINTESTINAL: Abdomen soft, non-tender, nondistended. Hepatic and splenic margins not palpable. MUSCULOSKELETAL: No obvious deformities. No clubbing. No cyanosis. No edema. Full range of motion of the upper and lower extremities bilaterally. 2+ pulses bilaterally. NEUROLOGICAL: Awake and alert. No obvious cranial nerve deficits. Motor grossly within normal limits. Normal speech. PSYCHIATRIC: Appropriate mood and affect; insight and judgment normal. Course Initial Documented Vital Signs Temperature 98.4 F 01/06/18 12:06 Pulse Rate 92 H 01/06/18 12:06 Respiratory Rate 24 01/06/18 12:06 Blood Pressure 160/82 H 01/06/18 12:06 Pulse Oximetry 89 L 01/06/18 12:06 Last Documented Vital Signs Temperature 98.4 F 01/06/18 12:16 Pulse Rate 82 01/06/18 15:14 Respiratory Rate 18 01/06/18 15:14 Blood Pressure 159/82 H 01/06/18 15:14 Pulse Oximetry 98 01/06/18 15:14 Medical Decision Making ROC Attestation ROC supervised visit: Yes Attestation: I, Dr. Conde, have reviewed the advance practice practitioner's documentation and am in agreement, met with the patient face to face, made the diagnosis, and the medical decision making was done by me. *My assessment and Findings: Multiple contusions. Questionable CVA versus TIA. Inability to care for self. Anticoagulated. MDM Narrative Medical decision making narrative: 82-year-old female that presents to the ED for evaluation of fall. Patient was properly examined and was found to have signs and symptoms of unclear etiology with deafly concerning for fall. Apparently she has been having multiple falls and is question whether she had a syncopal episode versus CVA. Apparently family member that showed up and stated that she noted that today the mother is slurring her speech. This appears to be new. Labs and imaging were ordered here and they were all negative for acute disease. No sign of fractures. At this time recommendations for admission for further evaluation of possible CVA versus syncope. Patient will likely require some placement as it appears that she continues to fall multiple times and she is not a safe discharge. My attending Dr. Conde himself evaluated the patient and agrees with plan. Patient will be admitted to Dr. Cervantes who agrees to admission. Differential Diagnosis Differential Diagnosis: CVA versus syncope versus fracture versus fall versus bruise versus contusion Medical Records Medical records reviewed: Yes I reviewed the patient's medical records. Lab Data Lab results reviewed: Yes I reviewed the patient's lab results. Lab results narrative: Troponin and CK-MB negative. Result diagrams: 01/06/18 12:20 01/06/18 12:20 Lab Results 01/06/18 01/06/18 01/06/18 Range/Units 12:20 12:20 12:20 WBC 9.4 (4.0-11.0) th/mm3 RBC 4.93 (4.00-5.30) mil/mm3 Hgb 14.6 (11.6-15.3) gm/dL Hct 44.1 (35.0-46.0) % MCV 89.5 (80.0-100.0) fL MCH 29.7 (27.0-34.0) pg MCHC 33.2 (32.0-36.0) % RDW 16.1 (11.6-17.2) % Plt Count 237 (150-450) th/mm3 MPV 7.6 (7.0-11.0) fL Neut % (Auto) 82.0 H (16.0-70.0) % Lymph % (Auto) 9.5 (9.0-44.0) % Gregg % (Auto) 8.2 H (0.0-8.0) % Eos % (Auto) 0.1 (0.0-4.0) % Baso % (Auto) 0.2 (0.0-2.0) % Neut # (Auto) 7.7 (1.8-7.7) th/mm3 Lymph # (Auto) 0.9 L (1.0-4.8) th/mm3 Gregg # (Auto) 0.8 (0.0-0.9) th/mm3 Eos # (Auto) 0.0 (0.0-0.4) th/mm3 Baso # (Auto) 0.0 (0.0-0.2) th/mm3 WBC Differential . Differential Comment Auto diff final PT 22.1 H (9.8-11.6) sec INR 2.2 Ratio APTT 31.8 H (24.3-30.1) sec Sodium Cancelled Potassium Cancelled Chloride Cancelled Carbon Dioxide Cancelled Anion Gap Cancelled BUN Cancelled Creatinine Cancelled Estimated GFR Cancelled Random Glucose Cancelled Calcium Cancelled Total Bilirubin (0.2-1.0) mg/dL AST (15-37) U/L ALT (10-53) U/L Alkaline Phosphatase (45-117) U/L Troponin I Cancelled Total Protein (6.4-8.2) g/dL Albumin (3.4-5.0) g/dL Urine Color (Yellw/Straw) Urine Clarity (Clear) Urine pH (5.0-8.5) Ur Specific [place] (1.002-1.035) Urine Protein (Neg-Trace) mg/dL Urine Glucose (UA) (Negative) mg/dL Urine Ketones (Negative) mg/dL Urine Occult Blood (Negative) Urine Nitrate (Negative) Urine Bilirubin (Negative) Urine Urobilinogen (Less than 2) mg/dL Ur Leukocyte Esterase (Negative) Urine RBC (0-3) /hpf Urine WBC (0-5) /hpf Ur Squamous Epith Cells (0-5) /hpf Urine Bacteria (None) /hpf Urine Mucus (Occasional) /lpf Micro UA Comment Urine Culture Comments 01/06/18 01/06/18 Range/Units 12:20 15:10 WBC (4.0-11.0) th/mm3 RBC (4.00-5.30) mil/mm3 Hgb (11.6-15.3) gm/dL Hct (35.0-46.0) % MCV (80.0-100.0) fL MCH (27.0-34.0) pg MCHC (32.0-36.0) % RDW (11.6-17.2) % Plt Count (150-450) th/mm3 MPV (7.0-11.0) fL Neut % (Auto) (16.0-70.0) % Lymph % (Auto) (9.0-44.0) % Gregg % (Auto) (0.0-8.0) % Eos % (Auto) (0.0-4.0) % Baso % (Auto) (0.0-2.0) % Neut # (Auto) (1.8-7.7) th/mm3 Lymph # (Auto) (1.0-4.8) th/mm3 Gregg # (Auto) (0.0-0.9) th/mm3 Eos # (Auto) (0.0-0.4) th/mm3 Baso # (Auto) (0.0-0.2) th/mm3 WBC Differential Differential Comment PT (9.8-11.6) sec INR Ratio APTT (24.3-30.1) sec Sodium 131 L Potassium 4.1 Chloride 91 L Carbon Dioxide 31.8 Anion Gap 8 BUN 11 Creatinine 0.55 Estimated GFR Greater than 89 Random Glucose 90 Calcium 8.4 L Total Bilirubin 0.9 (0.2-1.0) mg/dL AST 28 (15-37) U/L ALT 19 (10-53) U/L Alkaline Phosphatase 87 (45-117) U/L Troponin I 0.05 Total Protein 7.3 (6.4-8.2) g/dL Albumin 3.2 L (3.4-5.0) g/dL Urine Color Yellow (Yellw/Straw) Urine Clarity Hazy H (Clear) Urine pH 7.0 (5.0-8.5) Ur Specific [place] 1.016 (1.002-1.035) Urine Protein 30 H (Neg-Trace) mg/dL Urine Glucose (UA) Negative (Negative) mg/dL Urine Ketones Trace H (Negative) mg/dL Urine Occult Blood Negative (Negative) Urine Nitrate Negative (Negative) Urine Bilirubin Negative (Negative) Urine Urobilinogen Less than 2 (Less than 2) mg/dL Ur Leukocyte Esterase Negative (Negative) Urine RBC 2 (0-3) /hpf Urine WBC Less than 1 (0-5) /hpf Ur Squamous Epith Cells 1 (0-5) /hpf Urine Bacteria Rare H (None) /hpf Urine Mucus Few H (Occasional) /lpf Micro UA Comment Cath-culture ind Urine Culture Comments Cath-cult indicated Imaging Data Attestation: I personally reviewed and interpreted this imaging study as follows : Radiologist's impression: ITS Impressions Abdomen/Pelvis CT 01/06/18 12:16 CONCLUSION: No evidence of acute abdominal or pelvic process. No masses are identified. 5 mm nodule right lower lobe. Followup CT scan in 6 months is recommended. Small pericardial effusion Chest CT 01/06/18 12:16 CONCLUSION: 2 well-circumscribed nodules as described above. There is no adenopathy. Small pericardial effusion Soft tissue swelling about the right shoulder without fracture. Shoulder films may be of benefit. Chest X-Ray 01/06/18 12:16 CONCLUSION: Cardiomegaly. No acute pulmonary disease. Head CT 01/06/18 12:16 CONCLUSION: Atrophy, otherwise negative for an acute process. Costa Timmons MD FACR Pelvis X-Ray 01/06/18 12:16 CONCLUSION: Old bilateral ramus fractures. There is no evidence of acute fracture. Ankle X-Ray 01/06/18 14:33 CONCLUSION: There is no evidence of acute fracture. Shoulder X-Ray 01/06/18 14:43 CONCLUSION: Negative for acute fracture or dislocation Moderate degenerative changes. ECG Data EKG Prior to Arrival: No Attestation: I personally reviewed and interpreted this ECG as follows: Discharge Plan Discharge Disposition Patient Disposition: 30 Still Patient Discharge Details Discharge Problem: Syncope, Multiple falls, Multiple bruises Physicians Team ED Provider: Jermaine Conde ED Midlevel Provider: Ramiro Kitchen Primary Care Provider: UNKNOWN, Attending Provider: Channing Cervantes Discharge Interventions Interventions: Vital Signs Last Done: 01/06/18 15:14 Status ED Status: Admitted Observation Patient
[2018-01-06 13:04] LABS: Baso % (Auto) 0.2 % (0.0-2.0); Eos % (Auto) 0.1 % (0.0-4.0); Hematocrit 44.1 % (35.0-46.0); Hemoglobin 14.6 gm/dL (11.6-15.3); Lymph # (Auto) 0.9 th/mm3 (1.0-4.8); Lymph % (Auto) 9.5 % (9.0-44.0); Mean Corpuscular HGB Conc 33.2 % (32.0-36.0); Mean Corpuscular Hemoglobin 29.7 pg (27.0-34.0); Mean Corpuscular Volume 89.5 fL (80.0-100.0); Mean Platelet Volume 7.6 fL (7.0-11.0); Mono # (Auto) 0.8 th/mm3 (0.0-0.9); Mono % (Auto) 8.2 % (0.0-8.0); Neut # (Auto) 7.7 th/mm3 (1.8-7.7); Platelet Count 237 th/mm3 (150-450); Red Blood Count 4.93 mil/mm3 (4.00-5.30); Red Cell Distribution Width 16.1 % (11.6-17.2); White Blood Count 9.4 th/mm3 (4.0-11.0)
[2018-01-06 13:15] LABS: Activated Partial Thrombo Time 31.8 sec (24.3-30.1); INR 2.2 Ratio; Prothrombin Time 22.1 sec (9.8-11.6)
--- NOTE | 2018-01-06 13:19 | XR ---
EXAM DATE: 01/06/2018 1:00 PM EDT AGE/SEX: 82 years / Female INDICATIONS: Shortness of breath. CLINICAL DATA: This is the patient's initial encounter. Patient reports that signs and symptoms have been present for 1 day and indicates a pain score of 0/10. MEDICAL/SURGICAL HISTORY: None. None. COMPARISON: [facility] [place], CHEST SINGLE AP, 07/23/2017. . FINDINGS: The cardiac silhouette is enlarged in transverse diameter. There is prominence of the aortic knob is with calcification characteristic of atherosclerotic vascular disease. The lungs are free of acute pa renchymal opacity. No pulmonary nodules or pleural effusions are identified. Calcified granuloma is present in the right lung. CONCLUSION: Cardiomegaly. No acute pulmonary disease. Electronically signed by: Douglas Aviles MD 01/06/2018 1:18 PM EDT
--- NOTE | 2018-01-06 13:21 | XR ---
EXAM DATE: 01/06/2018 1:01 PM EDT AGE/SEX: 82 years / Female INDICATIONS: Pain in pelvic region. Patient fell today. CLINICAL DATA: This is the patient's initial encounter. Patient reports that signs and symptoms have been present for 1 day and indicates a pain score of 6/10. MEDICAL/SURGICAL HISTORY: None. None. [place] [facility] [place]. . FINDINGS: There are old fractures of the pubic symphysis and left acetabulum with callus formation. Extensive v ascular calcification is present. Degenerative changes present at the lumbosacral junction. There is no evidence of acute fracture. Bony mineralization is normal. CONCLUSION: Old bilateral ramus fractures. There is no evidence of acute fracture. Electronically signed by: Douglas Aviles MD 01/06/2018 1:19 PM EDT
[2018-01-06 13:28] LABS: Alkaline Phosphatase 87 U/L (45-117); Total Protein 7.3 g/dL (6.4-8.2); Troponin I 0.05 ng/mL (0.02-0.05)
[2018-01-06 13:29] LABS: Alanine Aminotransferase 19 U/L (10-53); Albumin 3.2 g/dL (3.4-5.0); Anion Gap 8 meq/L (5-15); Aspartate Aminotransferase 28 U/L (15-37); Blood Urea Nitrogen 11 mg/dL (7-18); Calcium 8.4 mg/dL (8.5-10.1); Carbon Dioxide 31.8 meq/L (21.0-32.0); Chloride 91 meq/L (98-107); Glomerular Filtration Rate Greater Than 89 mL/min (>89); Glucose,Random 90 mg/dL (74-106); Potassium 4.1 meq/L (3.5-5.1); Sodium 131 meq/L (136-145)
[2018-01-06] MEDS ORDERED: Sodium Chlor 0.9% Inj 500 ML IV.SIG ONE (13:34)
--- NOTE | 2018-01-06 14:31 | CT ---
EXAM DATE: 01/06/2018 2:16 PM EDT AGE/SEX: 82 years / Female INDICATIONS: Patient fell this morning, hit head. Altered mental status. CLINICAL DATA: This is the patient's initial encounter. Patient reports that signs and symptoms have been present for 1 day and indicates a pain score of 5/10. MEDICAL/SURGICAL HISTORY: Cardiovascular disease. Chronic obstructive pulmonary disease. Hyperten michael. None. RADIATION DOSE: 56.42 CTDI (mGy) COMPARISON: [facility] [place], CT BRAIN W/O CONTRAST, 07/05/2017. . TECHNIQUE: CT of the head without contrast. Using automated exposure control and adjustment of the mA and/or kV according to patient size, radiation dose was kept as low as reasonably achievable to ob tain optimal diagnostic quality images. DICOM format image data is available electronically for revi ew and comparison. FINDINGS: There is central and cortical atrophy with dilatation of ventricular and sulcal spaces. There is no parenchymal hemorrhage, acute infarction or mass lesion identified. There are no extra-axial fluid c ollections appreciated. Periventricular white matter changes are noted. The posterior fossa is unrem arkable with midline fourth ventricle. The portion of the orbits and paranasal sinuses visualized are unremarkable. CONCLUSION: Atrophy, otherwise negative for an acute process. Costa Timmons MD FACR Electronically signed by: Costa Timmons MD 01/06/2018 2:30 PM EDT
--- NOTE | 2018-01-06 14:38 | CT ---
EXAM DATE: 01/06/2018 2:17 PM EDT AGE/SEX: 82 years / Female INDICATIONS: Patient fell this morning, abdominal pain. CLINICAL DATA: This is the patient's initial encounter. Patient reports that signs and symptoms have been present for 1 day and indicates a pain score of 5/10. MEDICAL/SURGICAL HISTORY: Cardiovascular disease. Chronic obstructive pulmonary disease. Hyperten michael. None. RADIATION DOSE: 5.23 CTDI (mGy) ; Combined studies COMPARISON: No prior exams available for comparison. TECHNIQUE: Multiple contiguous axial images were obtained through the chest during bolus infusion of 80 ml Omnipaque 350 (iohexol) nonionic water-soluble contrast as a cumulative dose for multiple exa ms. Images were obtained in suspended respiration using multiple row detector helical technique. U sing automated exposure control and adjustment of the mA and/or kV according to patient size, radiati on dose was kept as low as reasonably achievable to obtain optimal diagnostic quality images. DICOM format image data is available electronically for review and comparison. FINDINGS: Mild interstitial prominence without pneumothorax. 2 lung nodules identified one in the left upper lo be measuring 8 mm. The second in the right lower lobe measuring 4 mm. .. There is no pleural effusion. There is no axillary or mediastinal adenopathy appreciated. There is mild dilatation of the ascending aorta with. The descending is mildly dilated as well. There is no mediastinal adenopathy Small pericardial effusion Soft tissue swelling about the right shoulder of uncertain significance. I don't see a fracture Degenerative changes in the thoracic spine without fracture There is no rib fracture. 2 apparent simple cyst in the liver. CONCLUSION: 2 well-circumscribed nodules as described above. There is no adenopathy. Small pericardial effusion Soft tissue swelling about the right shoulder without fracture. Shoulder films may be of benefit. Electronically signed by: Costa Timmons MD 01/06/2018 2:37 PM EDT
--- NOTE | 2018-01-06 15:11 | CT ---
EXAM DATE: 01/06/2018 2:19 PM EDT AGE/SEX: 82 years / Female INDICATIONS: Patient fell this morning, bruising upper body. CLINICAL DATA: This is the patient's initial encounter. Patient reports that signs and symptoms have been present for 1 day and indicates a pain score of 5/10. MEDICAL/SURGICAL HISTORY: Cardiovascular disease. Chronic obstructive pulmonary disease. Hype rtension. None. ORAL CONTRAST: No oral contrast ingested. RADIATION DOSE: 5.23 CTDI (mGy) ; Combined studies COMPARISON: [facility] – [place], CT CHEST W CONTRAST, 01/06/2018. . TECHNIQUE: Multiple contiguous axial images were obtained through the abdomen and pelvis following b olus infusion of 80 ml Omnipaque 350 (iohexol) nonionic water-soluble contrast as a cumulative dose for multiple exams. No oral contrast ingested. Using automated exposure control and adjustment of t he mA and/or kV according to patient size, radiation dose was kept as low as reasonably achievable to obtain optimal diagnostic quality images. DICOM format image data is available electronically for r eview and comparison. FINDINGS: There is a 5 mm nodule in the right lower lobe. Followup CT scan in 6 months is recommended. . Small pericardial effusion is present. There is hypodensity within the liver compatible with cyst measurin g 2.5 cm in segment 4 with smaller cysts present in the right lobe. The spleen is normal in size an d free of focal defects. The gallbladder and pancreas are unremarkable. No intrahepatic or extrahepa tic ductal dilatation is seen. The adrenal glands and kidneys appear normal bilaterally. No hydroneph rosis or mass lesions are identified. Examination of the pelvis demonstrates no evidence of free fluid or pelvic mass. No abnormally enlarg ed inguinal or retroperitoneal lymph nodes are present. The bladder is unremarkable. Calcified fibroi d is present on the left There are old left rib fractures as well as old fractures of the superior and inferior pubic rami migel aterally. Bone windows demonstrate multilevel degenerative change. No focal areas of bone destruction are identified. CONCLUSION: No evidence of acute abdominal or pelvic process. No masses are identified. 5 mm nodule right lower lobe. Followup CT scan in 6 months is recommended. Small pericardial effusion Electronically signed by: Douglas Aviles MD 01/06/2018 3:09 PM EDT
[2018-01-06 15:34] LABS: Bacteria,Urine Rare /hpf; Bilirubin,Urine Negative (Negative); Clarity,Urine Hazy (Clear); Color,Urine Yellow (Yellw/Straw); Glucose,Urine (UA) Negative (Negative); Leukocyte Esterase,Urine Negative (Negative); Mucus,Urine Few /lpf (Occasional); Nitrite,Urine Negative (Negative); Specific Gravity,Urine 1.016 (1.002-1.035); Squamous Epithelial Cell,Urine 1 /hpf (0-5)
--- NOTE | 2018-01-06 15:52 | XR ---
EXAM DATE: 01/06/2018 3:42 PM EDT AGE/SEX: 82 years / Female INDICATIONS: Right shoulder bruising post fall. CLINICAL DATA: This is the patient's initial encounter. Patient reports that signs and symptoms have been present for 1 day and indicates a pain score of 2/10. MEDICAL/SURGICAL HISTORY: . Cardiovascular disease. Chronic obstructive pulmonary disease. Hype rtension. None. COMPARISON: [facility], SHOULDER RIGHT COMPLETE (>2VWS), 07/05/2017. . FINDINGS: There are degenerative changes about the shoulder with subacromial spurring present. Alignment is anatomic. Degenerative changes are seen about the biceps tendon. CONCLUSION: Negative for acute fracture or dislocation Moderate degenerative changes. Electronically signed by: Costa Timmons MD 01/06/2018 3:51 PM EDT
--- NOTE | 2018-01-06 15:54 | XR ---
EXAM DATE: 01/06/2018 3:43 PM EDT AGE/SEX: 82 years / Female INDICATIONS: Left ankle swelling post fall. CLINICAL DATA: This is the patient's initial encounter. Patient reports that signs and symptoms have been present for 1 day and indicates a pain score of 4/10. MEDICAL/SURGICAL HISTORY: . Cardiovascular disease. Chronic obstructive pulmonary disease. Hype rtension. None. COMPARISON: No prior exams available for comparison. FINDINGS: Bony structures are intact and in normal alignment. Joints are intact without dislocation or signifi cant arthropathy. Osseous density is normal. Soft tissues are unremarkable. No radiopaque foreign bodies seen. Soft tissue calcification is present some of which is vascular. Osseous structures are osteopenic. CONCLUSION: There is no evidence of acute fracture. Electronically signed by: Douglas Aviles MD 01/06/2018 3:53 PM EDT
[2018-01-06] MEDS: Sod Chloride 0.9% Inj 1,000 ML IV.CONT SCH (16:50)
[2018-01-06] MEDS: guaiFENesin 600 MG ER Tablet PO SCH (16:53)
--- NOTE | 2018-01-06 16:54 | P.HPIM ---
History of Present Illness Primary Care Physician: UNKNOWN History of Present Illness: Mrs. East is an 82 year old female. She has been brought here secondary to recurrent falls. Urinary tract infection is present which may have been contributory to her falls. She has multiple bruising and is on Coumadin at baseline to treat atrial fibrillation. Low-salt levels are present which could also be contributory. Based on an echocardiogram from 2018 the patient does not have congestive heart failure, her EF is 60-65%. She does have atrial fibrillation and has been having lower extremity edema. The lower extremity edema could contribute to weakness also but is likely a manifestation of low salt and infection. Patient has had some altered mental status per her family member, but she is able to participate in history. Past Medical History Hearing loss Vestibular dysfunction Lumbar stenosis in back Hypothyroidism Past Surgical History Thyroidectomy at 18yo Mastoidectomy bilateral at 3yo Family History Mother and father , no FHx of bone disease Social History alcohol- quit 13 yrs ago smokes- 1/2 ppd. x64yrs Illicit drugs-none - Diagnosis (1) Hyponatremia (2) Urinary tract infection (3) Lower extremity edema (4) Multiple falls (5) Multiple bruises Inpatient Certification: I certify that the inpatient services were ordered in accordance with Medicare regulations governing the order. This includes certification that hospital inpatient services are reasonable and necessary and in the case of services not specified as inpatient-only under 42 CFR 419.22(n), that they are appropriately provided as inpatient services in accordance to with the 2-midnight benchmark under 43 CFR 412.3(e) Estimated Total Length of Stay (Days): 3 Plans for Post Hospital Care: SNF Review of Systems Constitutional: Reports fatigue, Reports weakness, Denies body ache(s), Denies chills, Denies fever(s), Denies night sweats Eyes: Denies blind spots, Denies blurry vision, Denies change in vision Ears, Nose, Mouth, and Throat: Denies abnormal hearing, Denies ear pain, Denies nasal discharge Cardiovascular: Denies chest pain, Denies chest pain at rest, Denies chest pain with activity Respiratory: Denies cough, Denies shortness of breath, Denies wheezing Gastrointestinal: Denies abdominal pain, Denies black, tarry stools, Denies bloating Musculoskeletal: Denies abnormal walking, Denies back pain, Denies body aches Skin/Breast: Denies rash, Denies skin pain, Denies skin ulcer Neurologic: Denies abnormal hearing, Denies abnormal movements, Denies abnormal speech PMFSH - History History Provided By: Patient - Medical History Medical History: Medical History (Last Reviewed 01/06/18 @ 16:31 by RAJI Mac) Atrial fibrillation COPD (chronic obstructive pulmonary disease) Congestive heart failure (CHF) Hypertension - Tobacco History Second Hand Smoke Exposure: Yes Tobacco Use In Past 30 Days: Yes Smoking Status: Current every day smoker Tobacco Type: Cigarettes - Alcohol History How Often Do You Have a Drink Containing Alcohol: Never - Substance Use History Substance History: No History of Abuse - Travel History Recent Travel in the [place] Within the Last 8 Weeks: No Recent Travel Out of the Country Within the Last 8 Weeks: No - Immunization History Tetanus Immunization: Unsure Hx Influenza Vaccine This Season: No Medications and Allergies Active Medications: Active Medications Al Hydroxide/Mg Hydroxide (Milk Of Candace Harrington) 30 ml PO Q12H PRN PRN Reason: Mild Constipation Fluticasone/Vilanterol (Breo Ellipta 100/25 Mcg Inh) 1 puff INH DAILY [facility] Guaifenesin (Mucinex Er) 600 mg PO Q12H [facility] Sodium Chloride (Ns Inj) 1,000 mls @ 100 mls/hr IV.CONT .Q10H [facility] Ceftriaxone Sodium 1,000 mg/ (Sodium Chloride) 100 mls @ 200 mls/hr IV.SIG Q24H [facility] Lactobacillus Acidophilus (Lactinex Pkt) 1 gm PO TID [facility] Non-Formulary Medication (Levothyroxine [Levothyroxine]) 25 mcg PO DAILY [facility] Warfarin Sodium (Coumadin) 3 mg PO DAILY [facility] Allergies Allergy/AdvReac Type Severity Reaction Status Date / Time Penicillins Allergy Intermediate Rash Verified 01/06/18 16:03 Sulfa (Sulfonamide Allergy Intermediate Rash Verified 01/06/18 16:03 Antibiotics) aspirin AdvReac Abdominal Verified 01/06/18 16:04 Pain Home Medications Medication Instructions Recorded Confirmed Type diazepam 5 mg PO Q6HR PRN 01/06/18 01/06/18 History fluticasone-vilanterol [Breo 1 inh INHALATION DAILY 01/06/18 01/06/18 History Ellipta] guaifenesin 600 mg PO Q12H 01/06/18 01/06/18 History levothyroxine 25 mcg PO DAILY 01/06/18 01/06/18 History warfarin [Coumadin] 3 mg PO DAILY 01/06/18 01/06/18 History Exam Vital signs: Vital Signs 01/06/18 12:06 01/06/18 12:16 01/06/18 12:34 Temperature 98.4 F 98.4 F Pulse Rate 92 H 88 Respiratory Rate 24 20 Blood Pressure 160/82 H 160/82 H Pulse Oximetry 89 L 98 97 01/06/18 15:14 Temperature Pulse Rate 82 Respiratory Rate 18 Blood Pressure 159/82 H Pulse Oximetry 98 Intake & Output 01/05/18 01/06/18 01/06/18 18:59 06:59 18:59 Intake Total 500 / 500 Balance 500 / 500 Weight 59 kg Intake: IV 500 / 500 NS Inj 500 ML @ Wide Open IV. 500 / 500 [facility] Rx#:[id number] Narrative: GENERAL: NAD, A&Ox3 HEAD: Normocephalic. NECK: Supple, trachea midline. No lymphadenopathy. EYES: No scleral icterus. No injection or drainage. CARDIOVASCULAR: Irregularly irregular, without murmurs, gallops, or rubs. RESPIRATORY: Breath sounds equal bilaterally. No accessory muscle use. GASTROINTESTINAL: Abdomen soft, non-tender, nondistended. MUSCULOSKELETAL: No cyanosis, lower extremity edema is present. SKIN: Warm and dry. NEURO: No focal neurological deficits. Results - Labs CBC & Chem 7: 01/06/18 12:20 01/06/18 12:20 Labs: Short CBC 01/06/18 Range/Units 12:20 WBC 9.4 (4.0-11.0) th/mm3 Hgb 14.6 (11.6-15.3) gm/dL Hct 44.1 (35.0-46.0) % Plt Count 237 (150-450) th/mm3 BMP 01/06/18 01/06/18 12:20 12:20 Sodium Cancelled 131 L Potassium Cancelled 4.1 Chloride Cancelled 91 L Carbon Dioxide Cancelled 31.8 BUN Cancelled 11 Creatinine Cancelled 0.55 Calcium Cancelled 8.4 L Cardiac Enzymes 01/06/18 01/06/18 Range/Units 12:20 12:20 Troponin I Cancelled 0.05 Liver Function 01/06/18 Range/Units 12:20 Total Bilirubin 0.9 (0.2-1.0) mg/dL AST 28 (15-37) U/L ALT 19 (10-53) U/L Alkaline Phosphatase 87 (45-117) U/L Albumin 3.2 L (3.4-5.0) g/dL Urine 01/06/18 Range/Units 15:10 Urine Color Yellow (Yellw/Straw) Urine Clarity Hazy H (Clear) Urine pH 7.0 (5.0-8.5) Ur Specific [place] 1.016 (1.002-1.035) Urine Protein 30 H (Neg-Trace) mg/dL Urine Glucose (UA) Negative (Negative) mg/dL - Imaging Impressions Abdomen/Pelvis CT 01/06/18 12:16 CONCLUSION: No evidence of acute abdominal or pelvic process. No masses are identified. 5 mm nodule right lower lobe. Followup CT scan in 6 months is recommended. Small pericardial effusion Chest CT 01/06/18 12:16 CONCLUSION: 2 well-circumscribed nodules as described above. There is no adenopathy. Small pericardial effusion Soft tissue swelling about the right shoulder without fracture. Shoulder films may be of benefit. Chest X-Ray 01/06/18 12:16 CONCLUSION: Cardiomegaly. No acute pulmonary disease. Head CT 01/06/18 12:16 CONCLUSION: Atrophy, otherwise negative for an acute process. Costa Timmons MD FACR Pelvis X-Ray 01/06/18 12:16 CONCLUSION: Old bilateral ramus fractures. There is no evidence of acute fracture. Ankle X-Ray 01/06/18 14:33 CONCLUSION: There is no evidence of acute fracture. Shoulder X-Ray 01/06/18 14:43 CONCLUSION: Negative for acute fracture or dislocation Moderate degenerative changes. Caprini VTE Risk Assessment Caprini VTE Risk Assessment: No/Low Risk (score <= 1) Caprini Risk Assessment Model: Point Value = 1 Point Value = 2 Point Value = 3 Point Value = 5 Age 41-60 Minor surgery BMI > 25 kg/m2 Swollen legs Varicose veins or History of unexplained or recurrent spontaneous Oral contraceptives or hormone replacement Sepsis (< 1 month) Serious lung disease, including pneumonia (< 1 month) Abnormal pulmonary function Acute myocardial infarction Congestive heart failure (< 1 month) History of inflammatory bowel disease Medical patient at bed rest Age 61-74 Arthroscopic surgery Major open surgery (> 45 min) Laparoscopic surgery (> 45 min) Malignancy Confined to bed (> 72 hours) Immobilizing plaster cast Central venous access Age >= 75 History of VTE Family history of VTE Factor V Leiden Prothrombin [id number] Lupus anticoagulant Anticardiolipin antibodies Elevated serum homocysteine Heparin-induced thrombocytopenia Other congenital or acquired thrombophilia Stroke (< 1 month) Elective arthroplasty Hip, pelvis, or leg fracture Acute spinal cord injury (< 1 month) Prophylaxis Regimen: Total Risk Factor Score Risk Level Prophylaxis Regimen 0-1 Low Early ambulation 2 Moderate Order ONE of the following: *Sequential Compression Device (SCD) *Heparin 5000 units SQ BID 3-4 Higher Order ONE of the following medications: *Heparin 5000 units SQ TID *Enoxaparin/Lovenox 40 mg SQ daily (WT < 150 kg, CrCl > 30 mL/min) *Enoxaparin/Lovenox 30 mg SQ daily (WT < 150 kg, CrCl > 10-29 mL/min) *Enoxaparin/Lovenox 30 mg SQ BID (WT < 150 kg, CrCl > 30 mL/min) AND/OR *Sequential Compression Device (SCD) 5 or more Highest Order ONE of the following medications: *Heparin 5000 units SQ TID (Preferred with Epidurals) *Enoxaparin/Lovenox 40 mg SQ daily (WT < 150 kg, CrCl > 30 mL/min) *Enoxaparin/Lovenox 30 mg SQ daily (WT < 150 kg, CrCl > 10-29 mL/min) *Enoxaparin/Lovenox 30 mg SQ BID (WT < 150 kg, CrCl > 30 mL/min) AND *Sequential Compression Device (SCD) Assessment and Plan - Assessment (1) Hyponatremia Code(s): E87.1 - Hypo-osmolality and hyponatremia Status: Acute (2) Urinary tract infection Code(s): N39.0 - Urinary tract infection, site not specified Status: Acute (3) Lower extremity edema Code(s): R60.0 - Localized edema Status: Acute (4) Multiple falls Code(s): R29.6 - Repeated falls Status: Acute (5) Multiple bruises Code(s): T07.XXXA - Unspecified multiple injuries, initial encounter Status: Acute - Plan 82-year-old female admitted secondary to recurrent falls with hyponatremia and urinary tract infection and metabolic encephalopathy. Urinary tract infection Start Rocephin Follow urine cultures Metabolic encephalopathy Related to infection Monitor for improvement Generalized weakness Likely related to urinary tract infection, hyponatremia, and lower extremity edema This is most likely etiology for her falls Monitor for improvement as treatments are provided Consider further workup if no improvements are seen Atrial fibrillation Follow on telemetry Continue anticoagulation Follow INR Presbycusis History of vestibular dysfunction History of lumbar stenosis May be contributory No evidence of exacerbation Follow clinically Hypothyroidism Evaluate with thyroid panel DVT prophylaxis Coumadin
[2018-01-06] MEDS ORDERED: Dextrose 50% in Water 50 ML Vial IV.PUSH PRN (18:38)
[2018-01-06] MEDS ORDERED: Furosemide 20 MG Tablet PO ONE (19:30)
[2018-01-06 19:43] LABS: INR 2.2 Ratio; Prothrombin Time 22.7 sec (9.8-11.6)
[2018-01-06] MEDS: Insulin NovoLOG Aspart Correctional Sugar Inj SQ SCH (22:45)
[2018-01-07] MEDS: Sod Chloride 0.9% Inj 1,000 ML IV.CONT SCH ×2 (04:13→17:42)
[2018-01-07] MEDS: guaiFENesin 600 MG ER Tablet PO SCH ×2 (04:59→17:41)
[2018-01-07] MEDS: Insulin NovoLOG Aspart Correctional Sugar Inj SQ SCH ×3 (08:53→22:30)
[2018-01-07] MEDS: Furosemide 20 MG Tablet PO SCH (08:55)
[2018-01-07 08:57] LABS: Baso % (Auto) 0.3 % (0.0-2.0); Eos % (Auto) 0.5 % (0.0-4.0); Hematocrit 37.9 % (35.0-46.0); Hemoglobin 12.5 gm/dL (11.6-15.3); Lymph # (Auto) 0.8 th/mm3 (1.0-4.8); Lymph % (Auto) 11.6 % (9.0-44.0); Mean Corpuscular HGB Conc 32.9 % (32.0-36.0); Mean Corpuscular Hemoglobin 29.7 pg (27.0-34.0); Mean Corpuscular Volume 90.4 fL (80.0-100.0); Mean Platelet Volume 7.4 fL (7.0-11.0); Mono # (Auto) 0.7 th/mm3 (0.0-0.9); Mono % (Auto) 10.2 % (0.0-8.0); Neut # (Auto) 5.5 th/mm3 (1.8-7.7); Neut % (Auto) 77.4 % (16.0-70.0); Platelet Count 225 th/mm3 (150-450); Red Blood Count 4.19 mil/mm3 (4.00-5.30); Red Cell Distribution Width 16.1 % (11.6-17.2); White Blood Count 7.1 th/mm3 (4.0-11.0)
[2018-01-07 09:12] LABS: Albumin 2.7 g/dL (3.4-5.0); Anion Gap 8 meq/L (5-15); Aspartate Aminotransferase 18 U/L (15-37); Blood Urea Nitrogen 11 mg/dL (7-18); Calcium 7.9 mg/dL (8.5-10.1); Carbon Dioxide 34.9 meq/L (21.0-32.0); Chloride 90 meq/L (98-107); Glomerular Filtration Rate Greater Than 89 mL/min (>89); Glucose,Random 89 mg/dL (74-106); Potassium 3.4 meq/L (3.5-5.1); Sodium 133 meq/L (136-145)
[2018-01-07 09:13] LABS: Alanine Aminotransferase 15 U/L (10-53)
[2018-01-07 09:23] LABS: Alkaline Phosphatase 76 U/L (45-117); T4 (Thyroxine) 6.4 mcg/dL (4.8-13.9); Total Protein 6.3 g/dL (6.4-8.2); Triiodothyronine (T3) Free 1.43 pg/mL (2.18-3.98)
--- NOTE | 2018-01-07 13:11 | P.PNIM ---
Subjective Interval history: Patient reports she is feeling okay today. She continues to be very weak. She understands that she will need rehabilitation. Physical Exam Vital signs: Vital Signs 01/06/18 15:14 01/06/18 17:34 01/06/18 17:38 Temperature 97.8 F Pulse Rate 82 86 Respiratory Rate 18 22 18 Blood Pressure 159/82 H 123/78 152/77 H Pulse Oximetry 98 97 90 L 01/06/18 20:00 01/06/18 20:06 01/06/18 20:51 Temperature 97.8 F Pulse Rate 85 Respiratory Rate 15 Blood Pressure 146/78 H Pulse Oximetry 85 L 96 100 01/06/18 23:21 01/07/18 04:00 01/07/18 08:00 Temperature 97.9 F 97.9 F 96.7 F L Pulse Rate 71 68 71 Respiratory Rate 17 16 20 Blood Pressure 120/65 137/68 132/66 Pulse Oximetry 100 99 100 01/07/18 12:00 Temperature 96.7 F L Pulse Rate 73 Respiratory Rate 20 Blood Pressure 137/69 Pulse Oximetry 100 Intake & Output 01/06/18 01/07/18 01/07/18 18:59 06:59 18:59 Intake Total 500 / 500 1100 / 1100 Balance 500 / 500 1100 / 1100 Weight 59 kg Intake: IV 500 / 500 1100 / 1100 NS Inj 1,000 ML @ 100 mls/hr IV 1000 / 1000 .CONT .Q10H [facility] Rx#:[id number] NS Inj 500 ML @ Wide Open IV. 500 / 500 SIG BOLUS ONE Rx#:[id number] Rocephin Inj 1,000 MG In NS Inj 100 / 100 100 ML @ 200 mls/hr IV.SIG Q24H [facility] Rx#:[id number] Narrative: GENERAL: Frail elderly female in no apparent distress. CARDIOVASCULAR: Normal rate and regular rhythm without murmurs, gallops, or rubs. RESPIRATORY: Good respiratory efforts. Breath sounds equal and clear to auscultation bilaterally. GASTROINTESTINAL: Abdomen soft, non-tender, non-distended. Normal active bowel sounds MUSCULOSKELETAL: Extremities without cyanosis, or edema. NEURO: Alert & Oriented x4 to person, place, time, situation. Moves all ext x4. Generalized weakness PSYCH: Appropriate mood and affect. Results - Labs CBC & Chem 7: 01/07/18 07:42 01/07/18 07:42 Laboratory Results - last 24 hr 01/06/18 01/06/18 01/06/18 12:20 12:20 15:10 WBC RBC Hgb Hct MCV MCH MCHC RDW Plt Count MPV Neut % (Auto) Lymph % (Auto) [place] % (Auto) Eos % (Auto) Baso % (Auto) Neut # (Auto) Lymph # (Auto) [place] # (Auto) Eos # (Auto) Baso # (Auto) WBC Differential Differential Comment PT 22.1 H INR 2.2 APTT 31.8 H Sodium 131 L Potassium 4.1 Chloride 91 L Carbon Dioxide 31.8 Anion Gap 8 BUN 11 Creatinine 0.55 Estimated GFR Greater than 89 POC Glucose Random Glucose 90 Calcium 8.4 L Total Bilirubin 0.9 AST 28 ALT 19 Alkaline Phosphatase 87 Troponin I 0.05 Total Protein 7.3 Albumin 3.2 L TSH Thyroxine (T4) Free T3 Urine Color Yellow Urine Clarity Hazy H Urine pH 7.0 Ur Specific [place] 1.016 Urine Protein 30 H Urine Glucose (UA) Negative Urine Ketones Trace H Urine Occult Blood Negative Urine Nitrate Negative Urine Bilirubin Negative Urine Urobilinogen Less than 2 Ur Leukocyte Esterase Negative Urine RBC 2 Urine WBC Less than 1 Ur Squamous Epith Cells 1 Urine Bacteria Rare H Urine Mucus Few H Micro UA Comment Cath-culture ind Urine Culture Comments Cath-cult indicated 01/06/18 01/06/18 01/07/18 18:56 22:15 07:42 WBC 7.1 RBC 4.19 Hgb 12.5 D Hct 37.9 MCV 90.4 MCH 29.7 MCHC 32.9 RDW 16.1 Plt Count 225 MPV 7.4 Neut % (Auto) 77.4 H Lymph % (Auto) 11.6 [place] % (Auto) 10.2 H Eos % (Auto) 0.5 Baso % (Auto) 0.3 Neut # (Auto) 5.5 Lymph # (Auto) 0.8 L [place] # (Auto) 0.7 Eos # (Auto) 0.0 Baso # (Auto) 0.0 WBC Differential . Differential Comment Auto diff final PT 22.7 H INR 2.2 APTT Sodium Potassium Chloride Carbon Dioxide Anion Gap BUN Creatinine Estimated GFR POC Glucose 100 Random Glucose Calcium Total Bilirubin AST ALT Alkaline Phosphatase Troponin I Total Protein Albumin TSH Thyroxine (T4) Free T3 Urine Color Urine Clarity Urine pH Ur Specific [place] Urine Protein Urine Glucose (UA) Urine Ketones Urine Occult Blood Urine Nitrate Urine Bilirubin Urine Urobilinogen Ur Leukocyte Esterase Urine RBC Urine WBC Ur Squamous Epith Cells Urine Bacteria Urine Mucus Micro UA Comment Urine Culture Comments 01/07/18 01/07/18 07:42 08:33 WBC RBC Hgb Hct MCV MCH MCHC RDW Plt Count MPV Neut % (Auto) Lymph % (Auto) [place] % (Auto) Eos % (Auto) Baso % (Auto) Neut # (Auto) Lymph # (Auto) [place] # (Auto) Eos # (Auto) Baso # (Auto) WBC Differential Differential Comment PT INR APTT Sodium 133 L Potassium 3.4 L Chloride 90 L Carbon Dioxide 34.9 H Anion Gap 8 BUN 11 Creatinine 0.60 Estimated GFR Greater than 89 POC Glucose 87 Random Glucose 89 Calcium 7.9 L Total Bilirubin 0.7 AST 18 ALT 15 Alkaline Phosphatase 76 Troponin I Total Protein 6.3 L D Albumin 2.7 L TSH 3.320 Thyroxine (T4) 6.4 Free T3 1.43 L Urine Color Urine Clarity Urine pH Ur Specific [place] Urine Protein Urine Glucose (UA) Urine Ketones Urine Occult Blood Urine Nitrate Urine Bilirubin Urine Urobilinogen Ur Leukocyte Esterase Urine RBC Urine WBC Ur Squamous Epith Cells Urine Bacteria Urine Mucus Micro UA Comment Urine Culture Comments Microbiology 01/06/18 15:10 Catheterized Urine Urine Culture - Preliminary No growth in 24 hours - Imaging Impressions Abdomen/Pelvis CT 01/06/18 12:16 CONCLUSION: No evidence of acute abdominal or pelvic process. No masses are identified. 5 mm nodule right lower lobe. Followup CT scan in 6 months is recommended. Small pericardial effusion Chest CT 01/06/18 12:16 CONCLUSION: 2 well-circumscribed nodules as described above. There is no adenopathy. Small pericardial effusion Soft tissue swelling about the right shoulder without fracture. Shoulder films may be of benefit. Chest X-Ray 01/06/18 12:16 CONCLUSION: Cardiomegaly. No acute pulmonary disease. Head CT 01/06/18 12:16 CONCLUSION: Atrophy, otherwise negative for an acute process. Costa Timmons MD FACR Pelvis X-Ray 01/06/18 12:16 CONCLUSION: Old bilateral ramus fractures. There is no evidence of acute fracture. Ankle X-Ray 01/06/18 14:33 CONCLUSION: There is no evidence of acute fracture. Shoulder X-Ray 01/06/18 14:43 CONCLUSION: Negative for acute fracture or dislocation Moderate degenerative changes. Assessment and Plan - Assessment (1) Hyponatremia Code(s): E87.1 - Hypo-osmolality and hyponatremia Status: Acute (2) Urinary tract infection Code(s): N39.0 - Urinary tract infection, site not specified Status: Acute (3) Lower extremity edema Code(s): R60.0 - Localized edema Status: Acute (4) Multiple falls Code(s): R29.6 - Repeated falls Status: Acute (5) Multiple bruises Code(s): T07.XXXA - Unspecified multiple injuries, initial encounter Status: Acute - Plan 82-year-old female admitted secondary to recurrent falls with hyponatremia and urinary tract infection and metabolic encephalopathy. Urinary tract infection Continue Rocephin Follow urine cultures Metabolic encephalopathy Related to infection Much improved. Generalized weakness Likely related to urinary tract infection, hyponatremia, and lower extremity edema. It appears the patient has been increasingly debilitated. She will most likely need SNF placement. Atrial fibrillation Follow on telemetry Continue anticoagulation Follow INR Presbycusis History of vestibular dysfunction History of lumbar stenosis May be contributory No evidence of exacerbation Follow clinically Hypothyroidism continue Synthroid DVT prophylaxis Coumadin Patient will need SNF placement for rehabilitation. Discussed with case management.
--- NOTE | 2018-01-07 17:15 | ECG ---
Date Performed: 01/06/2018 Time Performed: 16:00:30 PTAGE: 82 years EKG: Sinus rhythm POSSIBLE LEFT ATRIAL ENLARGEMENT NONSPECIFIC T-WAVE ABNORMALITY BORDERLINE ECG PREVIOUS TRACING : 07/06/2017 21.12 Since the previous tracing, no significant change noted DOCTOR: Jose Peter Interpretating Date/Time 01/07/2018 17:14:09
[2018-01-08] MEDS: Insulin NovoLOG Aspart Correctional Sugar Inj SQ SCH ×5 (00:21→21:30)
[2018-01-08] MEDS: guaiFENesin 600 MG ER Tablet PO SCH ×2 (05:30→17:12)
[2018-01-08] MEDS: Furosemide 20 MG Tablet PO SCH (08:09)
[2018-01-08 08:56] LABS: Blood Urea Nitrogen 13 mg/dL (7-18); Calcium 7.6 mg/dL (8.5-10.1); Carbon Dioxide 35.5 meq/L (21.0-32.0); Glomerular Filtration Rate Greater Than 89 mL/min (>89); Glucose,Random 110 mg/dL (74-106)
[2018-01-08 09:18] LABS: Anion Gap 5 meq/L (5-15); Chloride 97 meq/L (98-107); Potassium 3.5 meq/L (3.5-5.1); Sodium 137 meq/L (136-145)
--- NOTE | 2018-01-08 13:19 | P.PNIM ---
Subjective Interval history: Patient reports she is feeling okay except for generalized weakness. No chest pain or shortness of breath. Physical Exam Vital signs: Vital Signs 01/07/18 20:00 01/07/18 23:46 01/08/18 02:08 Temperature 98.4 F 98.3 F Pulse Rate 76 68 Respiratory Rate 17 17 Blood Pressure 127/62 129/60 103/64 Pulse Oximetry 94 L 93 L 01/08/18 04:00 01/08/18 04:25 01/08/18 08:00 Temperature 98.2 F 97.8 F Pulse Rate 66 72 Respiratory Rate 15 20 Blood Pressure 121/57 L 134/64 Pulse Oximetry 84 L 100 96 01/08/18 12:00 Temperature 98.2 F Pulse Rate 67 Respiratory Rate 18 Blood Pressure 137/65 Pulse Oximetry 97 Intake & Output 01/07/18 01/08/18 01/08/18 18:59 06:59 18:59 Intake Total 1000 / 1000 1100 / 1100 Output Total 3 / 3 Balance 997 / 997 1100 / 1100 Intake: IV 1000 / 1000 1100 / 1100 NS Inj 1,000 ML @ 100 mls/hr IV 1000 / 1000 1000 / 1000 .CONT .Q10H [facility] Rx#:[id number] Rocephin Inj 1,000 MG In NS Inj 100 / 100 100 ML @ 200 mls/hr IV.SIG Q24H [facility] Rx#:[id number] Output: Urine 3 / 3 Other: Date of Last Bowel Movement 01/07/18 01/07/18 Narrative: GENERAL: Frail elderly female in no apparent distress. CARDIOVASCULAR: Normal rate and regular rhythm without murmurs, gallops, or rubs. RESPIRATORY: Good respiratory efforts. Breath sounds equal and clear to auscultation bilaterally. GASTROINTESTINAL: Abdomen soft, non-tender, non-distended. Normal active bowel sounds MUSCULOSKELETAL: Extremities without cyanosis, or edema. NEURO: Alert & Oriented x4 to person, place, time, situation. Moves all ext x4. Generalized weakness PSYCH: Appropriate mood and affect. Results - Labs CBC & Chem 7: 01/07/18 07:42 01/08/18 08:06 Laboratory Results - last 24 hr 01/07/18 01/07/18 01/08/18 13:32 21:44 08:06 Sodium 137 Potassium 3.5 Chloride 97 L Carbon Dioxide 35.5 H Anion Gap 5 BUN 13 Creatinine 0.56 Estimated GFR Greater than 89 POC Glucose 87 222 H Random Glucose 110 H Calcium 7.6 L 01/08/18 01/08/18 08:06 12:36 Sodium Potassium Chloride Carbon Dioxide Anion Gap BUN Creatinine Estimated GFR POC Glucose 110 139 H Random Glucose Calcium Microbiology 01/06/18 15:10 Catheterized Urine Urine Culture - Final No growth in 48 hours Assessment and Plan - Assessment (1) Hyponatremia Code(s): E87.1 - Hypo-osmolality and hyponatremia Status: Acute (2) Urinary tract infection Code(s): N39.0 - Urinary tract infection, site not specified Status: Acute (3) Lower extremity edema Code(s): R60.0 - Localized edema Status: Acute (4) Multiple falls Code(s): R29.6 - Repeated falls Status: Acute (5) Multiple bruises Code(s): T07.XXXA - Unspecified multiple injuries, initial encounter Status: Acute - Plan 82-year-old female admitted secondary to recurrent falls with hyponatremia, abnormal urinalysis and metabolic encephalopathy. Abnormal urinalysis Concern for UTI. Patient initially treated with IV Rocephin. Urine cultures negative. Discontinue antibiotics. Metabolic encephalopathy Suspect this is multifactorial including hyponatremia, debility,? Early dementia Patient seems to have returned to baseline from a neurological standpoint. Generalized weakness Likely multifactorial. It appears the patient has been increasingly debilitated. She needs SNF placement. Atrial fibrillation Follow on telemetry Continue anticoagulation Follow INR Presbycusis History of vestibular dysfunction History of lumbar stenosis May be contributory No evidence of exacerbation Follow clinically Hypothyroidism continue Synthroid DVT prophylaxis Coumadin Plan for discharge to SNF tomorrow.
[2018-01-09] MEDS ORDERED: Melatonin 5 MG Tablet PO ONE (02:11)
[2018-01-09] MEDS: guaiFENesin 600 MG ER Tablet PO SCH (05:20)
[2018-01-09] MEDS: Insulin NovoLOG Aspart Correctional Sugar Inj SQ SCH (08:33)
--- NOTE | 2018-01-09 08:56 | P.DS ---
Date of admission: 01/06/18 16:21 Primary care physician: UNKNOWN Anticipated date of discharge: 01/09/18 Brief History from admission: HPI from the admitting physician Mrs. East is an 82 year old female. She has been brought here secondary to recurrent falls. Urinary tract infection is present which may have been contributory to her falls. She has multiple bruising and is on Coumadin at baseline to treat atrial fibrillation. Low-salt levels are present which could also be contributory. Based on an echocardiogram from 2018 the patient does not have congestive heart failure, her EF is 60-65%. She does have atrial fibrillation and has been having lower extremity edema. The lower extremity edema could contribute to weakness also but is likely a manifestation of low salt and infection. Patient has had some altered mental status per her family member, but she is able to participate in history. Update on the day of discharge 01/09/18: Patient reports she is feeling okay except for generalized weakness. No chest pain or shortness of breath. Looking forward to participating with physical therapy at SNF. DS: Diagnosis - Discharge Diagnosis (1) Hyponatremia Status: Acute (2) Lower extremity edema Status: Acute (3) Multiple falls Status: Acute (4) Multiple bruises Status: Acute DS: Summary Hospital Course: 82-year-old female admitted secondary to recurrent falls with hyponatremia, abnormal urinalysis and metabolic encephalopathy. Treatment course detailed below: Abnormal urinalysis Concern for UTI. Patient initially treated with IV Rocephin. Urine cultures negative. Antibiotics discontinued Metabolic encephalopathy Suspect this is multifactorial including hyponatremia, debility,? Early dementia, patient was using anxiolytics as well Patient seems to have returned to baseline from a neurological standpoint. Generalized weakness Likely multifactorial. It appears the patient has been increasingly debilitated. In addition to that, she had electrolyte abnormalities, use Valium Atrial fibrillation Follow on telemetry Continue anticoagulation Follow INR Presbycusis History of vestibular dysfunction History of lumbar stenosis May be contributory No evidence of exacerbation Follow clinically Hypothyroidism continue Synthroid DVT prophylaxis Coumadin - Time Spent with Patient Total time spent providing and/or coordinating discharge services: - Quality: VTE Deep Vein Thrombosis/Pulmonary Embolism Present on Admission: No Exam Vital signs: Vital Signs 01/08/18 09:54 01/08/18 12:00 01/08/18 12:27 Temperature 98.2 F Pulse Rate 78 67 80 Respiratory Rate 18 Blood Pressure 137/65 Pulse Oximetry 97 07/11/18 16:00 01/08/18 20:00 01/08/18 20:40 Temperature 97.9 F 98.2 F Pulse Rate 79 78 89 Respiratory Rate 18 17 Blood Pressure 141/67 H 155/72 H Pulse Oximetry 100 95 01/08/18 21:00 01/09/18 00:04 01/09/18 07:51 Temperature 98 F 97.6 F Pulse Rate 70 74 Respiratory Rate 20 16 Blood Pressure 138/65 138/67 Pulse Oximetry 96 95 95 01/09/18 08:00 Temperature 97.4 F L Pulse Rate 72 Respiratory Rate 17 Blood Pressure 143/68 H Pulse Oximetry 96 Intake & Output 01/08/18 01/09/18 01/09/18 18:59 06:59 18:59 Output Total Balance -1 / -1 Output: Stool Other: # Voids 2 1 Date of Last Bowel Movement 01/08/18 01/08/18 # Bowel Movements 1 Results Procedures completed during hospitalization: None Labs on day of discharge: Labs from last 24 hours 01/09/18 01/08/18 01/08/18 08:15 21:37 17:11 Sodium Potassium Chloride Carbon Dioxide Anion Gap BUN Creatinine Estimated GFR POC Glucose 123 H 158 H 111 H Random Glucose Calcium 01/08/18 01/08/18 12:36 08:06 Sodium 137 Potassium 3.5 Chloride 97 L Carbon Dioxide 35.5 H Anion Gap 5 BUN 13 Creatinine 0.56 Estimated GFR Greater than 89 POC Glucose 139 H Random Glucose 110 H Calcium 7.6 L - Impressions ITS Impressions Abdomen/Pelvis CT 01/06/18 12:16 CONCLUSION: No evidence of acute abdominal or pelvic process. No masses are identified. 5 mm nodule right lower lobe. Followup CT scan in 6 months is recommended. Small pericardial effusion Chest CT 01/06/18 12:16 CONCLUSION: 2 well-circumscribed nodules as described above. There is no adenopathy. Small pericardial effusion Soft tissue swelling about the right shoulder without fracture. Shoulder films may be of benefit. Chest X-Ray 01/06/18 12:16 CONCLUSION: Cardiomegaly. No acute pulmonary disease. Head CT 01/06/18 12:16 CONCLUSION: Atrophy, otherwise negative for an acute process. Costa Timmons MD FACR Pelvis X-Ray 01/06/18 12:16 CONCLUSION: Old bilateral ramus fractures. There is no evidence of acute fracture. Ankle X-Ray 01/06/18 14:33 CONCLUSION: There is no evidence of acute fracture. Shoulder X-Ray 01/06/18 14:43 CONCLUSION: Negative for acute fracture or dislocation Moderate degenerative changes. Discharge Plan - Discharge Disposition Patient Disposition: 03 Discharge to SNF - Discharge Condition Condition: Good - Discharge Order Discharge Orders: Discharge Order (Routine); Ordered 01/09/18 Ordered By: Peter Ann - Physicians Team Primary Care Provider: UNKNOWN, Attending Provider: Peter Ann
[2018-01-09] MEDS: Furosemide 20 MG Tablet PO SCH (09:40)
== END 2018-01-09 14:08 ==
LOC: NEDA 11:55 → NEPE 11:55 → OBSVTOIN 16:21 → NEPFCDU 17:23
PROVIDERS: ADMIT Family Medicine; ATTEND Family Medicine
DX: R60.0 Localized edema; E89.0 Postprocedural hypothyroidism; F17.210 Nicotine dependence, cigarettes, uncomplicated; H91.10 Presbycusis, unspecified ear; J44.9 Chronic obstructive pulmonary disease, unspecified; Z79.01 Long term (current) use of anticoagulants; I10 Essential (primary) hypertension; M48.061 Spinal stenosis, lumbar region without neurogenic claudication; I48.91 Unspecified atrial fibrillation; G93.41 Metabolic encephalopathy; T14.8XXA Other injury of unspecified body region, initial encounter; R29.6 Repeated falls; E87.1 Hypo-osmolality and hyponatremia; R82.90 Unspecified abnormal findings in urine